=== PATIENT | male | born 1955 | race Caucasian/White ===

== ENCOUNTER → 2021-09-30 | Outpatient (CLI) | payer OTHER ==
--- NOTE | 2021-10-01 08:38 | XR ---
EXAM TYPE: LUMBAR SPINE X RAY SERIES COMPARISON: NONE HISTORY: Pain TECHNIQUE: 4 views are submitted. FINDINGS: Alignment is anatomic. The pedicles are intact. The transverse processes are intact. There is mult ilevel severe facet arthropathy and degenerative disc disease. Grade 1 anterolisthesis L4 on L5. Mult ilevel foraminal encroachment. Atherosclerotic change of the aorta. IMPRESSION: 1. Multilevel moderate to severe degenerative disc disease with facet arthropathy and grade 1 anterol isthesis L4 on L5. 2. Multilevel foraminal encroachment. Recommend follow-up MRI
--- NOTE | 2021-10-01 08:43 | XR ---
EXAMINATION TYPE: XR Hip Complete RT DATE OF EXAM: 09/30/2021 COMPARISON: NONE HISTORY: Pain TECHNIQUE: 2 views submitted FINDINGS: There is no evidence of erosive change or acute fracture. Calcifications along the greater trochanter likely vascular. Mild concentric narrowing of the hip jeff nt with hypertrophic change of the acetabulum. IMPRESSION: 1. No evidence of acute fracture or dislocation. 2. Arthropathy correlate for femoral acetabular impingement.
== END | disposition home or self-care (01) ==
LOC: RADXRMAIN 16:17
PROVIDERS: ATTEND Internal Medicine
DX: M51.36 Other intervertebral disc degeneration, lumbar region (principal); M43.16 Spondylolisthesis, lumbar region; M47.816 Spondylosis without myelopathy or radiculopathy, lumbar region; M12.851 Other specific arthropathies, not elsewhere classified, right hip
CPT/HCPCS: 72110; 73502

== ENCOUNTER → 2022-03-11 | Outpatient (CLI) | payer OTHER ==
--- NOTE | 2022-03-11 21:57 | MR ---
EXAMINATION TYPE: MR cspine/tspine wo con DATE OF EXAM: 03/11/2022 COMPARISON: NONE HISTORY: Neck pain and back pain for 3 months. TECHNIQUE: Multiplanar, multisequence imaging of cervical and thoracic spine are performed without co ntrast FINDINGS: Cervical spine: Sagittal images of the cervical spine show the craniocervical junction to appear within normal limits . The cervical and upper thoracic spinal cord is normal in caliber and signal. Diminished AP diamete r to the cervical spinal canal is noted. There is grade 1 retrolisthesis C4 on C5 and C5-C6. Mild dis c space narrowing C5-C6 otherwise the vertebral body and intravertebral disk heights are normal. The bone marrow signal intensity is within normal limits. Axial images show C2-C3 level to appear within normal limits. Axial images at C3-C4 level shows tiny central disc protrusion moderately effacing the anterior theca l sac with left foraminal spur disc complex causing moderate to severe left-sided neural foraminal na rrowing. Axial images at C4-C5 level show spondylolisthesis with broad-based left paracentral disc protrusion effacing the anterior thecal sac up to ventral surface of spinal cord which is slightly indented and causing moderate right and advanced left-sided neural foraminal narrowing. Axial images at C5-C6 level shows spondylosis with broad-based posterior disc protrusion effacing the anterior thecal sac and causing advanced right and moderate to advanced left-sided neural foraminal narrowing. Axial images at C6-C7 level shows central disc protrusion effacing the anterior thecal sac and causin g mild bilateral neural foraminal narrowing. Axial images at C7-T1 level show right paracentral disc protrusion mildly effacing the anterior theca l sac and causing mild bilateral neural foraminal narrowing. IMPRESSION: Spondylolisthesis and multilevel degenerative change greatest in mid cervical levels as d etailed above. Thoracic spine: Spinal cord shows normal course, caliber, and signal as it courses the thoracic spine. Vertebral bod y heights and alignment are satisfactory. Small posterior disc herniations are seen effacing the ante rior thecal sac at T2-T3 sagittal image 9 along with T4-T5 level sagittal image 8 and T6-T7 through t he T9-T10 levels on sagittal images. Bone marrow signal intensity is preserved. Axial images show additional bilateral paracentral disc protrusions effacing the anterolateral thecal sac at T1-T2 level on image 25. There is some effacement of the posterior lateral thecal sac and bi lateral T10-T11 and T11-T12 levels due to facet arthropathy and ligamentum flavum hypertrophy. The vi sualized upper abdomen and thorax show no suspicious abnormality. IMPRESSION: Multilevel degenerative changes in the thoracic spine as detailed above.
== END | disposition home or self-care (01) ==
LOC: RADMRIMAIN 20:50
PROVIDERS: ATTEND Orthopaedic Surgery
DX: M54.2 Cervicalgia (principal); M54.6 Pain in thoracic spine
CPT/HCPCS: 72141; 72146

== ENCOUNTER → 2022-05-08 | Outpatient (CLI) | payer OTHER | END | disposition home or self-care (01) | LOC: LABWHC1 10:15 | PROVIDERS: ATTEND Orthopaedic Surgery | DX: Z01.812 Encounter for preprocedural laboratory examination (principal); M47.816 Spondylosis without myelopathy or radiculopathy, lumbar region; M48.061 Spinal stenosis, lumbar region without neurogenic claudication; Z22.322 Carrier or suspected carrier of Methicillin resistant Staphylococcus aureus | CPT/HCPCS: 87070 ==

== ENCOUNTER 2022-05-15 05:33 | Inpatient (IN) | payer OTHER ==
[2022-05-13 09:25] VITALS: BMI 36.9
[~2022-05-15 05:33] MED LIST: ACETAMINOPHEN TAB 500 MG TAB PO PRN; GABAPENTIN 300 MG CAP PO PRN; MIDAZOLAM 2 MG/2 ML VIAL IV PRN; ONDANSETRON 4 MG/2 ML VIAL IVP PRN; TRANEXAMIC ACID IN NACL,ISO-OS 1,000 MG in SALINE 1 100ML.BAG IVPB PRN; ceFAZolin 3 GM in SODIUM CHLORIDE 0.9% 100 ML IVPB PRN
[2022-05-15 06:22] LABS: Glucose,Whole Blood 193 mg/dL (70-110)
[2022-05-15] MEDS: LACTATED RINGERS 1,000 ML IV SCH (06:24)
--- NOTE | 2022-05-15 06:46 | P.HPOR ---
History of Present Illness H&P Date: 05/08/22 .D:Date: 05/08/22 : 09:42am .T:Title: [facility] History and Physical Date of :[birth year] Age: 66 year Height: 5'11" Weight: 265 lbs BMI: 36.96 kg/m2 Occupation: Teacher VAS: 5 CHIEF COMPLAINT: Low back pain DOI:symptoms ongoing for several years but worsened over the 5 months after a FFS DOS: None Duration of current treatment regiment: 5 months HISTORY : Xrays brought xrays from outside facility which were reviewed No new xrays taken in office Trauma or injury yes No Work-Related No Pain description aching, burning, sharp. Location diffuse Patient notes that their pain radiates to bilateral lower extremities(left worse than right) Activity Modification yes Hand Dominance right TREATMENTS COMPLETED: 6 weeks of PT completed? Month and Year of last PT date? None recent No Physician recommended home exercise completed? Duration of HEP course: Current, greater than 5 months yes Patient has trialed the physician directed home exercise program (without) relief of their symptoms. Medications yes List: Tylenol PRN, Motrin 800mg PRN both without relief. Previously trialed a Medrol Dosepak around 09/2021 and in 02/2022 without relief. Gabapentin Alternative interventions Chiropractic: yes , without relief. Massage therapy: No R.I.C.E: yes , heat and ice without relief. Brace: No Injections No RFA: No SUBJECTIVE: Mr. Leach returns to the office for a pre-operative recheck of their planned l umbar (L2-S1) Decompression and Fusion. Patient reports no improvements to his symptoms since the time of the last appointment. The patient continues to complain of low back pain extending into the bilateral lower extremities (L>R) with numbness/tingling and weakness. Overall the patient notes continued debility and significantly impeding his ability to complete most of his daily tasks. Overall the patient has seen a progressive increase in symptoms since their onset. Mr. Leach symptoms are exacerbated with standing, ambulation, flexion/extension, and high impact movements like walking up and down stairs, due to this they notes that it is increasingly difficult for Mr. Leach to complete many of their daily tasks. Patient is having severe sleep disturbances as well due to their ongoing pain and associated symptoms. Regarding treatments, the patient has previously trialed all abovementioned treatment modalities without relief of his symptoms. Patient denies trialing any other modalities at this time. For their symptoms, the patient has been taking Tylenol, Motrin, and Gabapentin all without relief of his symptoms. Otherwise the patient denies any f/c/sob/cp, no bladder or bowel retention/incontinence, no perineal numbness/tingling, and ambulates independently. HPI: Mr. Leach last returned to the office on 03/23/22 for an recheck of their low back and cervical pain. Since the time of the last appointment the patient repo rts no improvements to his symptoms. Patient notes that his symptoms have continued to be quite severe. He reports cervicaland lumbar pain ongoing for 5 months after a FFS. He denies any new injury or trauma. In addition to their lumbar pain, they do report that it radiates into the bilateral lower extremities, associatedwith numbness and tingling through the posterior portion of the legs along with significant weakness effecting his gait. Overall the patient has seen a progressive increase in symptoms since their onset and has had significantly reduced ability to complete his daily tasks. Patient reports an increase in bilateral hamstring pain when ambulating without any ambulatory aid so he has been using a walker. Mr. Leach symptoms are exacerbated with any standing, ambulation, flexion/extension/twisting, and high impact movements like walking up and down stairs, due to this they notes that it is increasingly difficult for Mr. Leach to complete many of their daily tasks. Patient is having severe sleep disturbances as well due to their ongoing pain and associated symptoms. Regarding treatments, the patient has previously trialed all aobvementioned treatment modalities with waning relief, noting he no longer gets any significant relief from any conservative modalities. Patient denies trialing any other modalities at this time. Otherwise the patient denies any f/c/sob/cp, no incision concerns, no bladder or bowel retention/incontinence, no perineal numbness/tingling, and ambulates independently. Mr. Leach presents to the office for an evaluation of their low back pain. Patient reports a aching, burning, sharp lumbar pain ongoing for several years but hs worsened sharply over the last 5 months after a FFS. Patient denies any prior injuries, trauma's, or hx of low back surgeries. In addition to their lumbar pain, they do report that it radiates into the bilateral lower extremities (left worse than right), associated withnumbness and tingling through the legs diffusely. Overall the patient has seen a progressive increase in symptoms since their onset. Mr. Leach symptoms are exacerbated with prolonged standing and ambulation, due to this they notes that it is increasingly difficult for Mr. Leach to complete many of their daily tasks. Patient is having severe sleep disturbances as well due to their ongoing pain and associated symptoms. Regarding treatments, the patient has previously trialed all abovementined treatment modalities without relief of his symptoms. Patient denies trialing any other modalities at this time. For their symptoms, the linda ent has been taking Tylenol and Motrin 800mg without any relief of his symptoms. Otherwise the patient denies any f/c/sob/cp, no incision concerns, no bladder or bowel retention/incontinence, no perineal numbness/tingling, and ambulates independently. The patients' past social, medical, family, surgical history, as well as review of systems, have been reviewed. Please refer to the Neurosurgery History and Physical form that has been scanned in to our electronic medical record system. 16 points review of systems completed and as stated in HPI, all other systems reviewed are negative. Social History: Reviewed, see appropriate section of the chart for details. P3 Social History: Smoking: former smoker P3 Alcohol: none P3 Family History: Reviewed, see appropriate section of the chart for details. P2 Past Medical History: Reviewed, see appropriate section of the chart for details. [id number] Medications: Rx: gabapentin 300 mg capsule Ref: 0 Rx: glipiZIDE 5 mg tablet Ref: 0 Rx: IBU 800 mg tablet Ref: 0 Rx: Jardiance 25 mg tablet Ref: 0 Rx: levothyroxine 150 mcg capsule Ref: 0 Rx: Medrol (Yosef) 4 mg tablets in a dose pack Ref: 0 Rx: metFORMIN 500 mg tablet Ref: 0 Rx: metoprolol tartrate 25 mg tablet Ref: 0 Rx: rosuvastatin 10 mg tablet Ref: 0 Rx: Tylenol Extra Strength 500 mg tablet Ref: 0 Rx: valsartan 320 mg tablet Ref: 0 PHYSICAL EXAMINATION: General: Awake, alert, appropriate for age, in no acute distress. HEENT: No unusual neck masses around region of lateral neck triangle, thyroid, supraclavicular groove Heart: Regular rate and rhythm, normal S1, S2 and no murmur/gallop. Lungs: Clear to auscultation bilaterally with no use of accessory muscles. Extremities: Skin warm and dry without acute lesions, coloration, temperature, skin intact, no tenderness or erythema Integument: Hairy patches: ABSENT Dorsal skin dimples: ABSENT Cafe au lait spots: ABSENT Surgical incisions: NONE Palpation: Please see Pain drawing on Intake sheet for further detail. Midline spinal tenderness: No E6 Cervical Tenderness: No E6 Paralumbar tenderness: No E6 Parathoracic tenderness: No E6 Buttocks tenderness: No E6 Sacroiliac Tenderness: No POSTURAL and MUSCULO-SKELETAL EVALUATION: Coronal Balance: NEUTRAL Recumbent testing: Patient is able to lay flat on back Sagittal Balance: NEUTRAL Shoulder Profile: LEVEL Pelvic Girdle: LEVEL Neck ROM: RESTRICTED Lumbar ROM: severe RESTRICTED Shoulder ROM: Symmetrical Hip ROM: Symmetrical Knee ROM: Symmetrical Hands: Normal appearance, symmetrical Feet: Normal appearance, Symmetrical VASCULAR STATUS : LEFT RIGHT Wrist Pulses INTACT INTACT Pedal Pulses (Dors. pedis & post.tibialis) INTACT INTACT Color NORMAL NORMAL Edema Absent Absent NEUROLOGIC EXAMINATION: Mental Status:Awake and alert, fully oriented, with normal attention, concentration and memory, and fluent, appropriate speech. Cranial Nerves: I: Olfactory not tested. II: Visual acuity normal, no visual field deficit noted with confrontation. III,IV: Normal pupillary reflexes & intact extraocular movements without nystagmus. V,: Intact symmetrical facial sensation. VII: Intact symmetrical facial motor movement VIII: Hearing intact. IX,X: Intact gag, swallow, & normal voice. XI: Sternocleidomastoid, trapezius function intact. XII: Tongue midline with normal movements. L'hermitte's Sign: Negative / absent Spurling'Sign: Absent bilaterally. Cubital percussion test: Absent bilaterally. Carvalho-Tinel sign - Carpal region: Absent bilaterally. Straight Leg Raising: Absent bilaterally. Crossed straight leg raise: positive O8 MOTOR EXAM (0-5/5, N/T) UPPER EXTREMITY Shoulder Abduction Biceps Triceps Wrist Extension Hand [facility] Right 5/5 5/5 5/5 5/5 4/5 4/5 Left 5/5 5/5 5/5 5/5 4/5 4/5 LOWER EXTREMITY Hip Flexion Knee Extension Knee Flexion DF PF EHL FHL Right 4/5 4/5 4/5 4/5 3/5 4/5 4/5 Left 4/5 4/5 4/5 3/5 4/5 4/5 4/5 REFLEXES(0-4/2, NT)Upper ExtremityLower Extremity Right 2 2 Left 2 2 Pathological Reflexes RIGHT LEFT Carvalho's Absent Absent Clonus Absent Absent Babinski Absent Absent # Indicates mechanical impairment Muscle appearance: Symmetrical, without signs of atrophy or dystrophy. Sensory system (0-4, N/T) Test type RU TONY RL LL Joint-Position 2 2 2 2 Vibration 2 2 2 2 Pain & LT sense 2 2 2 2 Dermatomal Deficit: None None L5-S1 S1 Gait and Functional Evaluation: Ambulatory aids: Walker which is more recent development Romberg's test: Intact bilaterally Toe heel walk / heel-toe walk intact while maintaining satisfactory balance? No Squatting/straightening w/o assistance to a min of 60 degree knee flexion? No Single leg stance: intact Trendelenburg sign negative bilaterally Hand and finger dexterity intact bilaterally? yes Disdiadochokinesis examination negative bilaterally? yes He has an unsteady somewhat ataxic gait that is somewhat steppage. This could be from how severe his stenosis is. RADIOGRAPHIC STUDIES: XRay Lumbar Multiview (AP, Lateral, Flexion, Extension) with AP pelvis; 5 views taken on 02/16/22 of Lumbar Spine and Pelvis: images are reviewed with the patient demonstrated severe spondylotic changes from L3 through S1. There is near complete disc collapse at L4 5 and L5-S1. There is disc dislocation and height loss at L3-L4 there is severe facet arthrosis throughout these levels. There is flattening of the normal lumbar lordosis to only 18 with the pelvic incidence around 38-40. There is no acute fracture or dislocation noted. There is no lesions noted. AP pelvis demonstrates congruent level pelvis no fracture MRI aduuucwv04/27/2022 at [facility] of Lumbar Spine: images are reviewed with the patient. This demonstrates a grade 1 spondylolisthesis L4 on L5. There is severe disc desiccation L3 4 L4 5 and L5- S1 with height loss flattening of the normal lordosis. There is severe facet arthrosis with overgrowth as well as ligamental overgrowth contributing to severe stenosis L34 L4 5.there are varying degrees of foraminal stenosis at these levels. There are boggy facets L3 4 L4 5 and L5-S1. There is no acute fracture or dislocation. There is turbulent CSF flow causing nerve root limit motion. No lesions no acute fractures. MRI scan without contrast from 03/11/22 at [facility] of Cervical Spine and Thoracic Spine: Images reviewed with the patient. Motion artifact obscures some view in upper C spine but there is no stenosis or spondylosis C0-1, C1-2 or C2-3. There is beginning spondylotic changes C3-4 with disc dessication, mild. There is severe spondylotic changes noted C4-5, C5-6 and C6-7 with disc collapse, HNP related to this causing severe central and b/l foraminal stenosis related. There are beginning cord signal changes C5-6 noted due to the compression. There is fl attening of the normal cervical lordosis secondary to these findings. No fracture. No lesions noted. Thoracic spine is mild spondylosis w/o stenosis, fracture or lesions. IMPRESSION : It was my pleasure to have seen and examined Jose Manuel. I reviewed the patient's clinical syndrome, physical findings, and imaging studies during the appointment today. It is my impression that the patient has a diagnosis of. 1. L2-S1 spondylosis-severe with severe stenosis 2. C4-7 Spondylosis with HNP and stenosis moderate to severe 3. neurogenic claudication 4. mechanical low back pain 5. beginning Myelopathy I outlined the natural course history without intervention and various interventional options. PLAN: Based on my findings I suggest the following course of action: - Patient given a refill of his Gabapentin 300mg to help with his radicular symptoms until his surgery as he is almost out. - Patient given a temporary handicap parking permit to help with is functionality. - I did discuss with the patient given his severe symptoms, their progression and his deterioration neurologically as well as his imaging findings that he would need surgery at some point as he is becoming more and more debilitated due to pain and weakness sin his LE. He would need at least an L2-S1 decompression and fusion due to the severity of the stenosis. I discussed treatment options with the patient, including operative and non-operative options, and they have elected to proceed with the following surgical procedure: lumbar (L2-Pelvis) Decompression and Fusion The indications, risks, benefits, and alternatives to surgery were discussed with the patient and family at length. Specifically (but not limited to) the risks of infection, stiffness, recurrence of symptoms, need for revision surgery, local numbness, neurovascular injury, and blood clots were discussed. The patient's questions were answered.The decision to proceed was made. Consent will be obtained for the procedure. Spine Surgery Risk Review Mr. Leach is presenting for evaluation of his low back pain. It was my pleasure to have seen and examined Mr. Leach. In our visit today we have had a chance to go over subjective complaints, physical examination findings and treatments including the natural course history without intervention and various interventional options. The patients im aging demonstrates: XRay Lumbar Multiview (AP, Lateral, Flexion, Extension) with AP pelvis; 5 views taken on 02/16/22 of Lumbar Spine and Pelvis: images are reviewed with the patient demonstrated severe spondylotic changes from L3 through S1. There is near complete disc collapse at L4 5 and L5-S1. There is disc dislocation and height loss at L3-L4 there is severe facet arthrosis throughout these levels. There is flattening of the normal lumbar lordosis to only 18 with the pelvic incidence around 38-40. There is no acute fracture or dislocation noted. There is no lesions noted. AP pelvis demonstrates congruent level pelvis no fracture MRI scan from01/10/2022 at [facility] of Lumbar Spine: images are reviewed with the patient. This demonstrates a grade 1 spondylolisthesis L4 on L5. There is severe disc desiccation L3 4 L4 5 and L5- S1 with height loss flattening of the normal lordosis. There is severe facet arthrosis with overgrowth as well as ligamental overgrowth contributing to severe stenosis L34 L4 5.there are varying degrees of foraminal stenosis at these levels. There are boggy facets L3 4 L4 5 and L5-S1. There is no acute fracture or dislocation. There is turbulent CSF flow causing nerve root limit motion. No lesions no acute fractures. On physical exam, Mr. Leach demonstrates severely restricted lumbar ROM with significant bilateral lower extremity radiculopathy and weakness (L>R). Patient demonstrates left foot drop as well and his gait is severely impacted by his i nability to place any significant weight on the legs without instability. He has an unsteady somewhat ataxic gait that is somewhat steppage. Patient also has right lower extremity L5-S1 dermatomal deficits and S1 left lower extremity dermatomal deficit. Patient ambulating with a walker. I have explained to the patient that as their condition progresses it will cause further neurological deficits and eventual paralysis. Based on the patients imaging, physical exam, and the rapid progression and disabling nature of their symptoms, at this time I recommend surgery in the form or a: lumbar (L2-S1) Decompression and Fusion . I discussed the risk and benefits of this procedure at length with Mr. Leach. The patient and his agreed to considered pursuing the procedure abovementioned. Prior to surgery, she should follow up with her PCP (Cardio, ID, IM etc) for clearance. Questions were invited and answered, and the patient wishes to proceed as outlined below. Currently, I am recommendin.lumbar (L2-Pelvis) Decompression and Fusion 2.Follow up with PCP for surgical clearance 3.Review of surgical risks and benefits as well as an educational packet on the proposed surgical procedure. Risks: All surgical procedures come with inherent risks, including those related to positioning, anesthesia, intraoperative findings, and postoperative complications. It is important to understand that surgery does not come with any guarantee of a successful outcome as complications and adverse events are always possible. The patient was given a handout in office today discussing the surgical procedure and risks associated with the intervention, both of which were discussed with the patient. These risks include but are not limited to the following: * Experiencing same, different or even worse symptoms in back, neck, arms, or legs compared to before surgery. Requiring further surgery or other forms of treatment presently or at some time in the future at same or other levels of the intended spine surgery. On an extreme but fortunately relatively rare basis severe complication such as blindness, stroke, heart attack, temporary and/or permanent nerve injury, paralysis, coma, or may occur, sometimes without known explanation. Surgical complications may include but are not limited to risk of infection, fluid accumulation in the surgical dissection site, including a seroma or hematoma, that requires additional surgery, wound drainage, bleeding, new numbness or weakness, vision changes/loss, spinal fluid leakage, non-healing and/or infected incision, headaches, difficulty or inability to swallow, hoarseness, hemopneumothorax, pneumothorax, impotence, retrograde ejaculation, vaginal dryness; injury to nerves, spinal cord, blood vessels, lymphatics or other vital organs (i.e., bowel injury, injury to the great vessels); heterotopic bone formation; complications related to the hardware such as screws, rods, cages including misplaced hardware, device failure, instrumentation at the wrong spine level, hardware fracture/breakage, or hardware loosening; vertebral failure of the spinal column above or below the newly placed hardware; retained surgical instrumentations or devices and the need for further surgery. * Medical risks of the planned spine surgery include but are not limited to generalized Infections to the whole body or local areas outside of the surgical site (sepsis), heart attack, bleeding, anaphylaxis, meningitis, seizure, epilepsy, hearing loss, burn merrill, laceration of the head or other areas of the body, bruising, hypersensitivity of the skin, bladder over distension; allergic reaction; shoulder injury related to positioning; fat, blood and air clots to other areas of the body like heart, lungs, brain; failure of internal organs such as lungs, kidneys, liver and excessive bleeding. If blood transfusions are necessary, note that transfusions may cause intolerance reactions such as anaphylaxis or other complex reactions. Despite best efforts, the results of spine surgery might not heal in terms of bone, soft tissues such as skin, fascia, ligaments, and joints. Additionally, in order to achieve best possible results, spine surgery may be carried out beyond the initially planned levels and involve decompression, fusion including insertion of hardware at levels other than the original intended area of surgical interest change some portions of the procedure in order to ensure the best possible outcomes. With spine surgery and spinal fusion, there are different off label uses of instrumentation (devices, implants and hardware) as well as biological substances (bone morphogenic proteins, demineralized bone matrix) as well as using extra bone from allograft sources (i.e. cadaver bone) or autograft (iliac crest bone, ribs, or the spine itself). The patient has been given information about these practices and their inherent risks and benefits. [facility] is an educational center that serves as a training facility for neurosurgical and orthopedic SENIOR SOFTWARE DEVELOPER and Nursing students. Physician assistants are medically trained surgical providers who function in the outpatient, inpatient, and operating room setting under the direct supervision of the attending surgeon. [facility] has multiple operating rooms with single and overlapping rooms running daily. They currently function under the required guidelines as produced by the [facility] Finance Committee with regards to the overlapping rooms and will continue to comply with changes to this policy as they occur. The requirements include and are complied with as follows: (1) the critical portions of the overlapping rooms will not occur at the same time, (2) the attending physician will be physically present during the critical portions of the procedure and immediately available during the entire case, and (3) a back-up attending is designated should the primary attending not be immediately available. The patient has had a chance to review all the listed information, has been given print outs detailing this information, and has had all his/her questions answered to their satisfaction. It was my pleasure to have seen and examined Mr. Leach. In our visit today we have had a chance to go over my understanding of our patient's current condition, the natural course history without intervention and various interventional options. Questions were invited and answered, and the patient wishes to proceed as outlined above. I have seen and examined the patient for 25 minutes and we have spent more than 50% of the time in repeat and detailed counseling about the patient's condition, its natural course history with out and as much as can be predicted with surgery and re-review of various surgical treatment options. In conclusion, Mr. Leach and his spouse requested we proceed with the above suggested surgery and are willing to accept risks and limitations of the suggested surgery as nature of the disease process and our best attempts at treatment for the condition. Thank you again for allowing us to be part of your patient's care. Please don't hesitate to contact me if you have any further questions. Signed and authenticated by: Follow- up: 2 weeks post-op Patient Education: (Informational booklet, instructions, etc) given at today's appointment: Yes .ED:Patient Education: Y Plan at next visit: review MRI and progress Medications Reviewed: YES In our visit today Mr. Leach and I have had a chance to go over my understanding of the patient's current condition, the natural course history without intervention and various interventional options. Questions were invited and answered, and the patient wishes to proceed as outlined above. I will be sure to keep you updated afterMr. Leach returns here for further follow-up. Thank you again for your referral. Please do not hesitate to contact me if you have any further questions. Signed and authenticated by: Geo Mason [facility] [place] [address] [address] This message is confidential, intended only for the named recipient(s) and may contain information that is privileged or exempt from disclosure under applicable law. If you are not the intended recipient(s), you are notified that the dissemination, distribution or copying of this information is strictly prohibited. If you received this message in error, please notify the sender then delete this message. Patient verbalizes understanding of the information discussed. The above note was initiated by Geo Hallman, physician recording maintenance assistant for Dr. Geo Rodriguez. This note has been reviewed by Dr. Rodriguez, who has made his personal changes and impressions for this document. # SIGNED BY Geo Rodriguez (GOO)05/13/2022 12:42PM Past Medical History Past Medical History: Asthma, Diabetes Mellitus, Hyperlipidemia, Hypertension, Thyroid Disorder Additional Past Medical History / Comment(s): No treatment for Asthma needed in many many years. Hx kidney stones. History of Any Multi-Drug Resistant Organisms: None Reported Past Surgical History: Hernia Repair Additional Past Surgical History / Comment(s): Surgery for perforated ulcer at 15 yrs of age. Past Anesthesia/Blood Transfusion Reactions: No Reported Reaction Additional Past Anesthesia/Blood Transfusion Reaction / Comment(s): "Severe Needle Phobia." Past Psychological History: No Psychological Hx Reported Smoking Status: Former smoker Past Alcohol Use History: Rare Additional Past Alcohol Use History / Comment(s): Smoked briefly in high school. Past Drug Use History: None Reported - Past Family History Mother Family Medical History: No Reported History Additional Family Medical History / Comment(s): Strong family hx of [place]'s Disease. Medications and Allergies Home Medications Medication Instructions Recorded Confirmed Type Empagliflozin [Jardiance] 25 mg PO QAM 05/13/22 05/15/22 History Ezetimibe [Zetia] 10 mg PO HS 05/13/22 05/13/22 History Gabapentin 600 mg PO HS 05/13/22 05/13/22 History Gabapentin [Neurontin] 300 mg PO BID 05/13/22 05/15/22 History Levothyroxine Sodium 150 mcg PO QAM 05/13/22 05/13/22 History Metoprolol Tartrate 25 mg PO BID 05/13/22 05/13/22 History Rosuvastatin Calcium 10 mg PO HS 05/13/22 05/13/22 History Valsartan 320 mg PO QAM 05/13/22 05/13/22 History glipiZIDE 5 mg PO BID 05/13/22 05/15/22 History metFORMIN HCL 1,000 mg PO BID 05/13/22 05/13/22 History Allergies Allergy/AdvReac Type Severity Reaction Status Date / Time No Known Allergies Allergy Verified 05/15/22 05:58 Physical Examination Osteopathic Statement: *. No significant issues noted on an osteopathic structural exam other than those noted in the History and Physical/Consult. Results - Labs Labs: Abnormal Lab Results - Last 24 Hours (Table) 05/15/22 Range/Units 06:19 POC Glucose (mg/dL) 193 H (70-110) mg/dL
[2022-05-15] MEDS ORDERED: MIDAZOLAM 2 MG/2 ML VIAL IVP ONE (06:53)
[2022-05-15] MEDS ORDERED: fentaNYL (PF) 50 MCG/1 ML VIAL IVP ONE (06:53)
[2022-05-15] MEDS ORDERED: HYDROmorphone 0.5 MG/0.5 ML SYRINGE IVP PRN (07:00)
[2022-05-15] MEDS ORDERED: HEPARIN SODIUM 1,000 UN/ML (10ML VL) MISCELLANE ONE (09:00)
[2022-05-15] MEDS ORDERED: GENTAMICIN 80 MG in SODIUM CHLORIDE 0.9% IRRIGATIO 3,000 ML IRRIGATION ONE (09:05)
[2022-05-15] MEDS ORDERED: ceFAZolin 3,000 MG in SODIUM CHLORIDE 0.9% IRRIGATIO 3,000 ML IRRIGATION ONE (09:05)
[2022-05-15] MEDS ORDERED: LACTATED RINGERS 1,000 ML IV ONE ×2 (09:13→13:48)
[2022-05-15] MEDS ORDERED: VANCOMYCIN 1,000 MG VIAL MISCELLANE ONE (14:28)
[2022-05-15] MEDS ORDERED: GELATIN SPONGE,ABSORB (LARGE) 1 EACH SPONGE MISCELLANE ONE (14:28)
[2022-05-15] MEDS ORDERED: THROMBIN (BOVINE) 5,000 UNIT VIAL MISCELLANE ONE (14:29)
[2022-05-15 14:59] LABS: Allen Test Performed? Yes
[2022-05-15 15:01] LABS: HCT 33.1 % (39.0-53.0); HGB 11.1 gm/dL (13.0-17.5); MCH 31.1 pg (25.0-35.0); MCHC 33.7 g/dL (31.0-37.0); MCV 92.4 fL (80.0-100.0); Platelet Count 173 k/uL (150-450); RBC 3.58 m/uL (4.30-5.90); RDW 12.7 % (11.5-15.5); WBC 14.7 k/uL (3.8-10.6)
[2022-05-15 15:02] LABS: ABG Base Excess -10.8 mmol/L; ABG HCO3 15 mmol/L (21-25); ABG Oxygen Saturation 99.3 % (94-97); ABG PCO2 34 mmHg (35-45); ABG PH 7.27 (7.35-7.45); ABG PO2 187 mmHg (83-108)
[2022-05-15 15:37] LABS: Glucose,Whole Blood 292 mg/dL (70-110)
[2022-05-15] MEDS ORDERED: CYCLOBENZAPRINE 5 MG TAB PO PRN (15:41)
[2022-05-15] MEDS ORDERED: ONDANSETRON 4 MG/2 ML VIAL IVP PRN (15:41)
[2022-05-15] MEDS ORDERED: HYDROmorphone 1 MG/ML 1 ML SYRINGE IVP PRN (15:41)
[2022-05-15] MEDS ORDERED: INSULIN ASPART (NovoLOG) 100 UNIT/ML VIAL SQ ONE (16:01)
[2022-05-15] MEDS ORDERED: SODIUM CHLORIDE 0.9% 1,000 ML IV ONE (16:17)
--- NOTE | 2022-05-15 16:26 | P.CNPUL ---
History of Present Illness Consult date: 05/15/22 Requesting physician: Geo Rodriguez Reason for consult: other Chief complaint: Lumbar decompression. History of present illness: Pulmonary consult dated 05/15/2022. 66-year-old male who underwent a lumbar decompression today, with Dr. Rodriguez. The patient was seen in the postoperative recovery area, having been extubated. Currently, he's on 5 L of oxygen. Is getting lactated Ringer's at 100 mL an hour. A blood gas reveals some metabolic acidosis, so he received 1 ampule of sodium bicarbonate. The patient will be admitted to the intensive care unit overnight, for further touring and management. He is resting comfortably in the postoperative area. He has no complaints at this time. Current laboratory data includes a white count of 14.7, hemoglobin 11.1, hematocrit 33.1, and a platelet count of 173,000. Most recent glucose is 292. Home medications include glipizide, Jardiance, Neurontin, valsartan, Crestor, levothyroxine, metformin, metoprolol, gabapentin, and Zetia. Medical history based on these medications include diabetes, hypertension, hyperlipidemia, and hypothyroidism. Review of Systems REVIEW OF SYSTEMS: CONSTITUTIONAL: Chronic low back pain. NEUROLOGIC: [ Negative.] HEENT: [ Negative.] CARDIAC: [Negative.] PULMONARY: [Negative.] GI: [Negative.] : [Negative.] RHEUMATOLOGIC: [ Negative.] IMMUNOLOGIC: [ Negative.] ENDOCRINE: [Negative. ] DERMATOLOGIC: [Negative.] Past Medical History Past Medical History: Asthma, Diabetes Mellitus, Hyperlipidemia, Hypertension, Thyroid Disorder Additional Past Medical History / Comment(s): No treatment for Asthma needed in many many years. Hx kidney stones. History of Any Multi-Drug Resistant Organisms: None Reported Past Surgical History: Hernia Repair Additional Past Surgical History / Comment(s): Surgery for perforated ulcer at 15 yrs of age. Past Anesthesia/Blood Transfusion Reactions: No Reported Reaction Additional Past Anesthesia/Blood Transfusion Reaction / Comment(s): "Severe Needle Phobia." Past Psychological History: No Psychological Hx Reported Smoking Status: Former smoker Past Alcohol Use History: Rare Additional Past Alcohol Use History / Comment(s): Smoked briefly in high school. Past Drug Use History: None Reported - Past Family History Mother Family Medical History: No Reported History Additional Family Medical History / Comment(s): Strong family hx of [place]'s Disease. Medications and Allergies Home Medications Medication Instructions Recorded Confirmed Type Empagliflozin [Jardiance] 25 mg PO QAM 05/13/22 05/15/22 History Ezetimibe [Zetia] 10 mg PO HS 05/13/22 05/13/22 History Gabapentin 600 mg PO HS 05/13/22 05/13/22 History Gabapentin [Neurontin] 300 mg PO BID 05/13/22 05/15/22 History Levothyroxine Sodium 150 mcg PO QAM 05/13/22 05/13/22 History Metoprolol Tartrate 25 mg PO BID 05/13/22 05/13/22 History Rosuvastatin Calcium 10 mg PO HS 05/13/22 05/13/22 History Valsartan 320 mg PO QAM 05/13/22 05/13/22 History glipiZIDE 5 mg PO BID 05/13/22 05/15/22 History metFORMIN HCL 1,000 mg PO BID 05/13/22 05/13/22 History Allergies Allergy/AdvReac Type Severity Reaction Status Date / Time No Known Allergies Allergy Verified 05/15/22 05:58 Physical Exam Osteopathic Statement: *. No significant issues noted on an osteopathic structural exam other than those noted in the History and Physical/Consult. Vitals: Vital Signs Temp Pulse Pulse Resp BP BP Pulse Ox 05/15/22 16:00 111 H 16 138/73 92 L 05/15/22 15:45 110 H 16 145/77 95 05/15/22 15:30 97 F L 108 H 14 132/73 95 05/15/22 07:23 92 14 96 05/15/22 06:05 98.2 F 94 18 161/75 94 L Intake and Output 05/15/22 05/15/22 05/15/22 06:59 14:59 22:59 Intake Total 300 3202 100 Output Total 1700 Balance 300 1502 100 Intake: IV 300 3202 100 Output: Urine 800 Estimated Blood Loss 900 Other: Weight 124.6 kg No acute distress, oriented 3. Currently on a simple mask. Saturations are excellent. HEENT examination is grossly unremarkable. Neck supple. Full range of motion. No adenopathy thyromegaly or neck vein distention. Cardiovascular examination reveals regular rhythm rate. S1-S2 normal. No S3 or S4. No discernible murmur noted. Heart rate 100 bpm. Lungs reveal clear breath sounds. Breath sounds are equal bilaterally. No adventitious lung sounds including wheezes rhonchi or crackles. Saturations are 95%. Abdomen soft bowel sounds are heard. No masses or tenderness. Extremities are intact. No cyanosis clubbing or edema. Skin is without rash or lesion. Neurologic examination is brief but nonfocal. Results - Laboratory Findings CBC and BMP: 05/15/22 14:48 ABG ABG pH 7.27 (7.35-7.45) L 05/15/22 14:35 ABG pCO2 34 mmHg (35-45) L 05/15/22 14:35 ABG pO2 187 mmHg (83-108) H 05/15/22 14:35 ABG O2 Saturation 99.3 % (94-97) H 05/15/22 14:35 Abnormal lab findings: Abnormal Labs 05/15/22 05/15/22 05/15/22 06:19 14:35 14:48 WBC 14.7 H RBC 3.58 L Hgb 11.1 L Hct 33.1 L ABG pH 7.27 L ABG pCO2 34 L ABG pO2 187 H ABG HCO3 15 L ABG O2 Saturation 99.3 H POC Glucose (mg/dL) 193 H 05/15/22 15:34 WBC RBC Hgb Hct ABG pH ABG pCO2 ABG pO2 ABG HCO3 ABG O2 Saturation POC Glucose (mg/dL) 292 H Assessment and Plan Assessment: Postop day #0, status post lumbar decompression, L3 to pelvis. Mild metabolic acidosis. History of hypertension. History of hyperlipidemia. History of diabetes mellitus. History of hypothyroidism. History of coronavirus infection. Plan: Plan dated 05/15/2022. The patient is seen in phase 2 recovery. The patient has been extubated. The patient's on a simple mask at 5 L. The patient did receive 1 ampule of sodium bicarbonate for his metabolic acidosis. The patient's getting lactated Ringer's at 100 mL an hour. The patient will be admitted to the intensive care unit for further monitoring and management. Labs in the morning will be done. No additional recommendations are made. Medications have been entered by the nurse working with orthopedics. Prognosis is guarded. Time with Patient: Greater than 30
[2022-05-15 16:59] LABS: Glucose,Whole Blood 272 mg/dL (70-110)
[2022-05-15] MEDS: HYDROmorphone 0.5 MG/0.5 ML SYRINGE IVP PRN (17:05)
[2022-05-15] MEDS: ceFAZolin 3 GM in SODIUM CHLORIDE 0.9% 100 ML IVPB SCH ×2 (17:14→23:06)
--- NOTE | 2022-05-15 17:28 | CT ---
EXAMINATION TYPE: CT lumbar spine wo con CT DLP: 1996.4 mGycm, Automated exposure control for dose reduction was used. DATE OF EXAM: 05/15/2022 4:49 PM COMPARISON: Fluoroscopy 05/15/2022. CLINICAL INDICATION:Male, 66 years old with history of Post op decompression and fusion, TECHNIQUE: Multiple axial images were obtained from the midportion of T11 through the sacroiliac jeff nts. Soft tissue and bone windows in coronal and sagittal planes were obtained and reviewed. 3-D ref ormats of the bones were created on a separate workstation and submitted for review. Contrast used: none. Oral contrast used: none. FINDINGS: Alignment: There are 5 lumbar type vertebral bodies within normal alignment. Bone: Postsurgical changes to the spine involving L3-S1 with fixation screws through the iliac bones bilaterally. Overall the hardware appears intact. There is surgical bed gas. Posterior elements have been removed along the surgical bed. Acute fracture of the L4 vertebral body along the left aspect wi th minimal extension to the left pedicle.. Catheter extends through the surgical bed. There is skin afsaneh also present. Discs: Limited evaluation of the levels of the spine secondary to streak artifact from fixation hardware. No obvious spinal canal stenosis or neural foraminal stenosis. Other: Atherosclerosis of the arterial vasculature. Atrophic right kidney. Bilateral renal calculi wh ich are nonobstructive. IMPRESSION: 1. Postsurgical changes with fusion extending from L3 to S1. Overall hardware is intact and in appro priate position. 2. Acute fracture of the left L4 vertebral body lateral aspect with minimal extension into the left L4 pedicle.
[2022-05-15] MEDS: GABAPENTIN 300 MG CAP PO SCH ×2 (17:29→20:20)
--- NOTE | 2022-05-15 18:13 | FL ---
Intraoperative/procedural fluoroscopic services were provided. Total fluoroscopy time is 2 minutes 40 seconds with 9 submitted images to PACS. Please see the operative/procedural note for further detail s.
[2022-05-15] MEDS: HYDROcodone/APAP 10-325MG 1 EACH TAB PO PRN (18:51)
[2022-05-15] MEDS ORDERED: DEXTROSE 50% SYRINGE 50 ML IVP PRN ×2 (19:32)
[2022-05-15] MEDS: METOPROLOL TARTRATE 25 MG TAB PO SCH (20:20)
[2022-05-15] MEDS: INSULIN ASPART (NovoLOG) 100 UNIT/ML VIAL SQ SCH (21:43)
[2022-05-15] MEDS: HYDROcodone/APAP 5-325MG 1 EACH TAB PO PRN (23:06)
[2022-05-16 04:35] LABS: Basophils # (A) 0.1 k/uL (0-0.2); Basophils % (A) 1 %; Eosinophils % (A) 0 %; HCT 31.9 % (39.0-53.0); HGB 10.4 gm/dL (13.0-17.5); Lymphocytes # (A) 1.4 k/uL (1.0-4.8); Lymphocytes % (A) 12 %; MCHC 32.7 g/dL (31.0-37.0); MCV 91.8 fL (80.0-100.0); Mean Platelet Volume 8.7; Monocytes # (A) 0.4 k/uL (0-1.0); Monocytes % (A) 4 %; Neutrophils # (A) 9.6 k/uL (1.3-7.7); Neutrophils % (A) 82 %; Platelet Count 155 k/uL (150-450); RBC 3.47 m/uL (4.30-5.90); RDW 13.1 % (11.5-15.5); WBC 11.7 k/uL (3.8-10.6)
[2022-05-16 04:49] LABS: Calcium 7.3 mg/dL (8.4-10.2); Potassium 4.2 mmol/L (3.5-5.1)
[2022-05-16] MEDS: LACTATED RINGERS 1,000 ML IV SCH (05:17)
[2022-05-16 06:39] LABS: Glucose,Whole Blood 206 mg/dL (70-110)
[2022-05-16] MEDS: HYDROcodone/APAP 10-325MG 1 EACH TAB PO PRN ×3 (06:42→18:58)
[2022-05-16] MEDS: INSULIN ASPART (NovoLOG) 100 UNIT/ML VIAL SQ SCH ×5 (06:43→18:13)
[2022-05-16] MEDS: METOPROLOL TARTRATE 25 MG TAB PO SCH ×2 (08:19→21:07)
[2022-05-16] MEDS: GABAPENTIN 300 MG CAP PO SCH ×2 (08:19→17:28)
[2022-05-16] MEDS: ceFAZolin 3 GM in SODIUM CHLORIDE 0.9% 100 ML IVPB SCH ×3 (08:20→23:00)
--- NOTE | 2022-05-16 08:20 | P.ANPRN ---
Procedure Note - Anesthesia - Invasive Line Left Arterial Line Time Out Performed: Yes Date of Procedure: 05/15/22 Location of Patient: PreOp Preparation: Sterile Prep, Sterile Dressing Arterial Line Location: Radial Ultrasound Used: No Purpose - Visualization and Identification of Vasculature: No Image Stored and Saved: Yes Narrative: left radial line placement per sterile protocol utilized.
[2022-05-16] MEDS: LEVOTHYROXINE 75 MCG TAB PO SCH (10:28)
[2022-05-16] MEDS: DAPAGLIFLOZIN PROPANEDIOL 10 MG TABLET PO SCH (10:28)
--- NOTE | 2022-05-16 10:50 | P.PN ---
Subjective Progress Note Date: 05/16/22 Principal diagnosis: Back pain. Pulmonary consult dated 05/15/2022. 66-year-old male who underwent a lumbar decompression today, with Dr. Rodriguez. The patient was seen in the postoperative recovery area, having been extubated. Currently, he's on 5 L of oxygen. Is getting lactated Ringer's at 100 mL an hour. A blood gas reveals some metabolic acidosis, so he received 1 ampule of sodium bicarbonate. The patient will be admitted to the intensive care unit overnight, for further touring and management. He is resting comfortably in the postoperative area. He has no complaints at this time. Current laboratory data includes a white count of 14.7, hemoglobin 11.1, he matocrit 33.1, and a platelet count of 173,000. Most recent glucose is 292. Home medications include glipizide, Jardiance, Neurontin, valsartan, Crestor, levothyroxine, metformin, metoprolol, gabapentin, and Zetia. Medical history based on these medications include diabetes, hypertension, hyperlipidemia, and hypothyroidism. Progress note dated 05/16/2022. The patient is seen today in room 251, ICU. He's currently on 2 L of oxygen. He is getting saline at 10 mL an hour. Today's postop day #1, status post lumbar decompression. The patient is doing well otherwise. No major complaints. He was placed in the intensive care unit, overnight, for better management and monitoring. White count 11.7, hemoglobin 10.4, hematocrit 31.9, and platelet count was normal. Sodium 135, potassium 4.2, chlorides 106, CO2 21, anion gap is 8, BUN 23, and creatinine 1.06. Calcium 7.3. Objective - Vital Signs Vital signs: Vital Signs Temp 98.3 F 05/16/22 08:00 Pulse 105 H 05/16/22 09:00 Resp 16 05/16/22 09:00 BP 88/65 05/16/22 09:00 Pulse Ox 94 L 05/16/22 09:00 FiO2 Intake & Output 05/15/22 05/16/22 05/16/22 18:59 06:59 18:59 Intake Total 3402 700 150 Output Total 1800 1455 195 Balance 1602 -755 -45 Weight 132.3 kg Intake: IV 3402 400 50 .9NS @ 100 100 400 50 Intake, IV Titration 100 100 Amount ceFAZolin 3 gm In Sodium 100 100 Chloride 0.9% 100 ml @ 200 mls/hr IVPB Q8HR [facility] Rx#:[id number] Oral 200 Output: Drainage 540 60 Left Back 10 0 Right Back 530 60 Urine 900 915 135 Estimated Blood Loss 900 Other: Voiding Method Indwelling Catheter Indwelling Catheter ABP, PAP, CO, CI - Last Documented Arterial Blood Pressure 107/54 - Exam No acute distress, oriented 3. Currently on 2 L of oxygen. HEENT examination is grossly unremarkable. Neck supple. Full range of motion. No adenopathy thyromegaly or neck vein distention. Cardiovascular examination reveals regular rhythm rate. S1-S2 normal. No S3 or S4. No discernible murmur noted. Heart rate 105 bpm. Lungs reveal clear breath sounds. Breath sounds are equal bilaterally. No adventitious lung sounds including wheezes rhonchi or crackles. Abdomen soft bowel sounds are heard. No masses or tenderness. Extremities are intact. No cyanosis clubbing or edema. Skin is without rash or lesion. Neurologic examination is brief but nonfocal. - Labs CBC & Chem 7: 05/16/22 04:00 05/16/22 04:00 Labs: Abnormal Lab Results - Last 24 Hours (Table) 05/15/22 05/15/22 05/15/22 Range/Units 14:35 14:48 14:58 WBC 14.7 H (3.8-10.6) k/uL RBC 3.58 L (4.30-5.90) m/uL Hgb 11.1 L (13.0-17.5) gm/dL Hct 33.1 L (39.0-53.0) % Neutrophils # (1.3-7.7) k/uL ABG pH 7.27 L (7.35-7.45) ABG pCO2 34 L (35-45) mmHg ABG pO2 187 H (83-108) mmHg ABG HCO3 15 L (21-25) mmol/L ABG O2 Saturation 99.3 H (94-97) % Sodium (137-145) mmol/L Carbon Dioxide (22-30) mmol/L BUN (9-20) mg/dL Glucose (74-99) mg/dL POC Glucose (mg/dL) (70-110) mg/dL Hemoglobin A1c 8.4 H (0.0-6.0) % Calcium (8.4-10.2) mg/dL Crossmatch 05/15/22 05/15/22 05/15/22 Range/Units 15:17 15:34 16:57 WBC (3.8-10.6) k/uL RBC (4.30-5.90) m/uL Hgb (13.0-17.5) gm/dL Hct (39.0-53.0) % Neutrophils # (1.3-7.7) k/uL ABG pH (7.35-7.45) ABG pCO2 (35-45) mmHg ABG pO2 (83-108) mmHg ABG HCO3 (21-25) mmol/L ABG O2 Saturation (94-97) % Sodium (137-145) mmol/L Carbon Dioxide (22-30) mmol/L BUN (9-20) mg/dL Glucose (74-99) mg/dL POC Glucose (mg/dL) 292 H 272 H (70-110) mg/dL Hemoglobin A1c (0.0-6.0) % Calcium (8.4-10.2) mg/dL Crossmatch See Detail 05/16/22 05/16/22 05/16/22 Range/Units 04:00 04:00 06:38 WBC 11.7 H (3.8-10.6) k/uL RBC 3.47 L (4.30-5.90) m/uL Hgb 10.4 L (13.0-17.5) gm/dL Hct 31.9 L (39.0-53.0) % Neutrophils # 9.6 H (1.3-7.7) k/uL ABG pH (7.35-7.45) ABG pCO2 (35-45) mmHg ABG pO2 (83-108) mmHg ABG HCO3 (21-25) mmol/L ABG O2 Saturation (94-97) % Sodium 135 L (137-145) mmol/L Carbon Dioxide 21 L (22-30) mmol/L BUN 23 H (9-20) mg/dL Glucose 211 H (74-99) mg/dL POC Glucose (mg/dL) 206 H (70-110) mg/dL Hemoglobin A1c (0.0-6.0) % Calcium 7.3 L (8.4-10.2) mg/dL Crossmatch Assessment and Plan Assessment: Postop day #1, status post lumbar decompression, L3 to pelvis. Mild metabolic acidosis, resolved. History of hypertension. History of hyperlipidemia. History of diabetes mellitus. History of hypothyroidism. History of coronavirus infection. Plan: Plan dated 05/15/2022. The patient is seen in phase 2 recovery. The patient has been extubated. The patient's on a simple mask at 5 L. The patient did receive 1 ampule of sodium bicarbonate for his metabolic acidosis. The patient's getting lactated Ringer's at 100 mL an hour. The patient will be admitted to the intensive care unit for further monitoring and management. Labs in the morning will be done. No additional recommendations are made. Medications have been entered by the nurse working with orthopedics. Prognosis is guarded. Plan dated 05/16/2022. The patient appears be doing very well. He is on 2 L. His metabolic acidosis is resolved. The patient's getting saline at 10 mL an hour. He had an uneventful night. Labs, x-rays, and medications are reviewed. In my opinion, the patient could be transferred out to the general medical floor. We will see the patient moving forward only as needed. Time with Patient: Less than 30
[2022-05-16 11:26] LABS: Glucose,Whole Blood 284 mg/dL (70-110)
--- NOTE | 2022-05-16 13:04 | P.PN ---
Subjective Progress Note Date: 05/16/22 Principal diagnosis: Lumbar spondylosis with stenosis BLE radiculopathy Patient seen and examined this afternoon. He was transferred to from ICU this morning. He is currently sitting up in chair and states he is doing well. He states his symptoms have improved since his procedure. He denies any numbness or tingling in his bilateral lower extremities. Surgical dressing is CDI, right hemovac is holding compression and patent, left hemovac had been pulled out, likely due to activity. Encouraged patient to work with PT. He denies any fever/chills, nausea/vomiting, or chest pain. Documented vitals show temp 100.1, please encourage patient to use incentive spirometer. Objective - Vital Signs Vital signs: Vital Signs Temp 97.7 F 05/16/22 04:00 Pulse 107 H 05/16/22 07:00 Resp 22 05/16/22 07:00 BP 132/49 05/16/22 06:00 Pulse Ox 95 05/16/22 07:00 FiO2 Intake & Output 05/15/22 05/16/22 05/16/22 18:59 06:59 18:59 Intake Total 3402 700 20 Output Total 1800 1455 105 Balance 1602 -755 -85 Weight 132.3 kg Intake: IV 3402 400 20 .9NS @ 100 100 400 20 Intake, IV Titration 100 Amount ceFAZolin 3 gm In Sodium 100 Chloride 0.9% 100 ml @ 200 mls/hr IVPB Q8HR [facility] Rx#:[id number] Oral 200 Output: Drainage 540 60 Left Back 10 0 Right Back 530 60 Urine 900 915 45 Estimated Blood Loss 900 Other: Voiding Method Indwelling Catheter ABP, PAP, CO, CI - Last Documented Arterial Blood Pressure 147/65 - Exam Physical Examination General: The patient is awake and alert, in no acute distress Skin: Skin is warm and dry with no obvious rashes or lesions. Hairy patches absent, no dorsal skin dimples, no cafe au lait spots, and no surgical incisions. Eye: Pupils are equal, round and reactive to light, extra-ocular movements are intact; there is normal conjunctiva bilaterally. Neck: The neck is supple, there is no tenderness and ROM intact. Cardiovascular: There is a regular rate and rhythm. No murmur, rub or gallop is appreciated. Respiratory: Lungs are clear to auscultation, respirations are non-labored, breath sounds are equal. Gastrointestinal: Soft, non-distended, non-tender abdomen. Back: There is no tenderness to palpation in the midline, paralumbar, parathoracic or buttocks region. There is no obvious deformity . Musculoskeletal: ROM limited secondary to pain and stiffness from surgical procedure. Muscle strength in all major muscle groups of bilateral upper extr emities 5/5, bilateral lower extremities 4/5. Neurological: CN 2-12 intact. There are no obvious motor or sensory deficits. Movement and coordination equal and intact. Sensory exam to light touch intact C5-T1 and intact from L2-S1. Reflexes 2/4 in bilateral upper and lower extremities. Negative Hoffmans, babinski, and clonus signs. Psychiatric: Cooperative, appropriate mood & affect, normal judgment. - Labs CBC & Chem 7: 05/16/22 04:00 05/16/22 04:00 Labs: Abnormal Lab Results - Last 24 Hours (Table) 05/15/22 05/15/22 05/15/22 Range/Units 14:35 14:48 14:58 WBC 14.7 H (3.8-10.6) k/uL RBC 3.58 L (4.30-5.90) m/uL Hgb 11.1 L (13.0-17.5) gm/dL Hct 33.1 L (39.0-53.0) % Neutrophils # (1.3-7.7) k/uL ABG pH 7.27 L (7.35-7.45) ABG pCO2 34 L (35-45) mmHg ABG pO2 187 H (83-108) mmHg ABG HCO3 15 L (21-25) mmol/L ABG O2 Saturation 99.3 H (94-97) % Sodium (137-145) mmol/L Carbon Dioxide (22-30) mmol/L BUN (9-20) mg/dL Glucose (74-99) mg/dL POC Glucose (mg/dL) (70-110) mg/dL Hemoglobin A1c 8.4 H (0.0-6.0) % Calcium (8.4-10.2) mg/dL Crossmatch 05/15/22 05/15/22 05/15/22 Range/Units 15:17 15:34 16:57 WBC (3.8-10.6) k/uL RBC (4.30-5.90) m/uL Hgb (13.0-17.5) gm/dL Hct (39.0-53.0) % Neutrophils # (1.3-7.7) k/uL ABG pH (7.35-7.45) ABG pCO2 (35-45) mmHg ABG pO2 (83-108) mmHg ABG HCO3 (21-25) mmol/L ABG O2 Saturation (94-97) % Sodium (137-145) mmol/L Carbon Dioxide (22-30) mmol/L BUN (9-20) mg/dL Glucose (74-99) mg/dL POC Glucose (mg/dL) 292 H 272 H (70-110) mg/dL Hemoglobin A1c (0.0-6.0) % Calcium (8.4-10.2) mg/dL Crossmatch See Detail 05/16/22 05/16/22 05/16/22 Range/Units 04:00 04:00 06:38 WBC 11.7 H (3.8-10.6) k/uL RBC 3.47 L (4.30-5.90) m/uL Hgb 10.4 L (13.0-17.5) gm/dL Hct 31.9 L (39.0-53.0) % Neutrophils # 9.6 H (1.3-7.7) k/uL ABG pH (7.35-7.45) ABG pCO2 (35-45) mmHg ABG pO2 (83-108) mmHg ABG HCO3 (21-25) mmol/L ABG O2 Saturation (94-97) % Sodium 135 L (137-145) mmol/L Carbon Dioxide 21 L (22-30) mmol/L BUN 23 H (9-20) mg/dL Glucose 211 H (74-99) mg/dL POC Glucose (mg/dL) 206 H (70-110) mg/dL Hemoglobin A1c (0.0-6.0) % Calcium 7.3 L (8.4-10.2) mg/dL Crossmatch Assessment and Plan Assessment: Postop day 1: L3 to S1 decompression and fusion Lumbar spondylosis with stenosis Bilateral lower extremity radiculopathy Plan: Plan: -Appreciate lean process deployment consultant and team management. -Activity: Ambulate QID, OOB all meals, up and about, limit lifting bending twisting to less than 5 lbs. Use walker or cane if needed for stability. -Daily PT/OT, increase ambulation strength and balance. - LSO Brace when up and about, not needed in bed or chair -Pain control: Adequate at this time -Meds: reviewed -GI ppx: senna, Miralax -DC lucero when up and about, bedside commode if needed -DVT PPX: OK to restart Heparin tonight -Hygiene: Shower today. Maintain dressing clean and dry. Meticulous cleaning after BMs away from the incision site -Drains: Maintain for now. DC later today pending out put and PT -Encourage IS 10x/hr -Dispo: Anticipate discharge home with homecare vs ILA *I reviewed and discussed this case with my attending Dr. Rodriguez, whom has reviewed this chart and films and is in agreement with assessment and plan of care as outlined above. I have personally seen and examined the patient, performed the documentation and the assessment and plan as written. Number of minutes spent on the visit: 15m.
[2022-05-16 17:13] LABS: Glucose,Whole Blood 315 mg/dL (70-110)
--- NOTE | 2022-05-16 17:13 | P.OP ---
Date of Procedure: 05/15/22 Preoperative Diagnosis: 1. L3-S1 spondylosis, severe 2. L4-5 and L3-4 Grade I spondylolisthesis 3. L2-S1 stenosis, severe 4. Neurogenic claudication Postoperative Diagnosis: 1. L3-S1 spondylosis, severe 2. L4-5 and L3-4 Grade I spondylolisthesis 3. L2-S1 stenosis, severe 4. Neurogenic claudication Procedure(s) Performed: 1. L4-5 and L5-S1 intradiscal osteotomy for deformity correction, 3 column, (16303, 17131) 2. L3-Pelvis posteriolateral and interbody fusion (90218, [id number])/59 3. Segmental instrumentation L3-Pelvis (88295) 4. Attachment of the caudal end of construct to bony pelvis, no sacrum (47553) 5. Insertion of biomechanical device L3-S1 (72221b2) 6. Bilateral laminectomy, complete facetecomy and foraminotomy for decompressive and deformity correction purposes L3-S1 with L2-3 bilateral laminectomy, partial medial facetectomy and foraminotomy for decompression (77926, [id number]) 7. Use of [employer] 3D navigation for screw placement (12060) Use of IONM This case took 80% longer due to the patients body habitus, BMI, comorbid conditions and the severity of his disease (mod22) Implants: -[place] Rods and screws -Amplify Slim x2 -Globus Sable x1 -MagnatOs, Allograft, Autograft, iFactor, Allocel Anesthesia: GETA Surgeon: Geo Rodriguez Conveyor Man #1: Diamante Mott (Was present) Estimated Blood Loss (ml): 1,000 IV fluids (ml): 3,000 Urine output (ml): 500 Pathology: none sent Condition: stable Disposition: PACU Indications for Procedure: Mr. Leach is presenting for evaluation of his low back pain. It was my pleasure to have seen and examined Mr. Leach. In our visit today we have had a chance to go over subjective complaints, physical examination findings and treatments including the natural course history without intervention and various interventional options. The patients imaging demonstrates: XRay Lumbar Multiview (AP, Lateral, Flexion, Extension) with AP pelvis; 5 views taken on 02/16/22 of Lumbar Spine and Pelvis: images are reviewed with the patient demonstrated severe spondylotic changes from L3 through S1. There is near complete disc collapse at L4 5 and L5-S1. There is disc dislocation and height loss at L3-L4 there is severe facet arthrosis throughout these levels. There is flattening of the normal lumbar lordosis to only 18 with the pelvic incidence around 38-40. There is no acute fracture or dislocation noted. There is no lesions noted. AP pelvis demonstrates congruent level pelvis no fracture MRI scan from01/10/2022 at [facility] of Lumbar Spine: images are reviewed with the patient. This demonstrates a grade 1 spondylolisthesis L4 on L5. There is severe disc desiccation L3 4 L4 5 and L5- S1 with height loss flattening of the normal lordosis. There is severe facet arthrosis with overgrowth as well as ligamental overgrowth contributing to severe stenosis L34 L4 5.there are varying degrees of foraminal stenosis at these levels. There are boggy facets L3 4 L4 5 and L5-S1. There is no acute fracture or dislocation. There is turbulent CSF flow causing nerve root limit motion. No lesions no acute fractures. On physical exam, Mr. Leach demonstrates severely restricted lumbar ROM with significant bilateral lower extremity radiculopathy and weakness (L>R). Patient demonstrates left foot drop as well and his gait is severely impacted by his inability to place any significant weight on the legs without instability. He has an unsteady somewhat ataxic gait that is somewhat steppage. Patient also has right lower extremity L5-S1 dermatomal deficits and S1 left lower extremity dermatomal deficit. Patient ambulating with a walker. I have explained to the patient that as their condition progresses it will cause further neurological deficits and eventual paralysis. Based on the patients imaging, physical exam, and the rapid progression and disabling nature of their symptoms, at this time I recommend surgery in the form or a: lumbar (L2-S1) Decompression and Fusion . I discussed the risk and benefits of this procedure at length with Mr. Leach. The patient and his agreed to considered pursuing the procedure abovementioned. Prior to surgery, she should follow up with her PCP (Cardio, ID, IM etc) for clearance. Questions were invited and answered, and the patient wishes to proceed as outlined below. Currently, I am recommendin.lumbar (L2-Pelvis) Decompression and Fusion Description of Procedure: The patient was seen and examined in the preoperative area. All preoperative protocols were followed. Informed consent was obtained risks and benefits of the procedure were discussed at length. Risks including bleeding infection damage to the surrounding tissue and risk of reoperation were discussed with the patient. Risk of anesthesia up to and including was a discussed with the patient. These are outlined in the risk review. They were willing to accept these risks and all the risks of surgery. The patient was given a weight-based dose of antibiotics in the form of 3 g Ancef. The patient was seen and evaluated by the anesthesia team who deemed them fit for surgery. The site was marked, the patient was willing to proceed with the procedure. The patient was transferred to the operative suite by the Department of anesthesia. They were then drifted off to sleep by the department anesthesia and GETA was performed. The patient tolerated this well. Rosales catheter was placed by nursing staff, a-traumatically. Once confirmation of lines and ventilation the patient was transferred to a prone Trios spine table very carefully. The head was secured and stable. Xray confirmed alignment. All bony prominences including wrists, elbows, axilla, chest, hips, and thighs, and feet were padded very well. Special attention was paid to the genitalia, and these were padded accordingly. SCDs were placed on bilateral lower extremities and were connected. Arms were well padded and placed at 90/90 up and out and well padded. Safety strap and tape placed on patient. Once in position, again we confirmed good ventilation capabilities and that lines were running appropriately. The patients lumbosacral pelvic was then exposed. Hair was removed for incision. 1010s were placed outlining the incision site. Standard alcohol was used to clean the incision site and allowed to dry. C-arm was used to bio-marian the patient and confirm level for incision which was marked with a skin marker. Operative briefing was performed with all teams and everyone in agreement to proceed. The patient was then prepped and draped in a normal sterile fashion. Timeout was then performed, and all parties agreed with the procedure to be performed. Midline skin incision was then made over the previously biomarked area and dissection taken down to the lumbosacral facia which was identified and cleaned with a allen. There was excessive sub-q adipose that was obtrusive and needed to be retracted. Once midline was identified, faciiotomy was made over the SP of L1-S1 and pelvis. Subperiosteal dissection was then taken down over the lamina and facet joints and TPs were exposed and trough made posteriolateral. TPs were then decorticated with high speed martin for lateral fusion. Dissection was taken out over the sacrum to the pelvis. SI joint identified and modified James sta rting point for pelvic screws identified as well. Retractors placed. Wound was irrigated and lateral image with penfield 4 placed at the pars of L4 confirmed levels for operation. SP clamp was then placed for [employer] navigation tracker and secured. The wound was then filled with NSS and Z-drape placed. A 3D ie spin was then obtained and registered. Once confirmation of accuracy screws wer e then placed from L3-Pelvis using navigation. Navigated high speed martin was used to make a ship pilot hole followed by a navigated awl-tap passed through the pedicle into the body. A ball tip probe then confirmed within the pedicle. Screw was then measured and placed using navigated screw local intermodal truck driver. After screws were placed from L3-S1, AP image confirmed safe placement of screws. Lateral image as well as navigation were then used to place bilateral pelvic screws. Starting point selected just lateral to the SI joint and S2 pseudofacet. Lateral image taken and martin used to make ship pilot hole. Gearshift then used to pass into the pelvis under lateral imaging just above the sciatic notch. 30 deg/30deg iliac oblique then taken to confirm within the teardrop and ball tip probe used to probe good bone. Screw was then measured and selected and placed under lateral imaging. This was repeated on the contralateral side. Screws were then visualized and appeared safe. A second [facility] spin was obtained and confirmed safe screw placement. Only partial pelvis was viewed in this spin due to patients body habitus. Screws were then tested, and reliably tested screws tested above 20 mA. There was an issue with IONM that precluded all screws from being successfully tested at the time. We then proceeded to decompression and interbody placement. Starting at L5-S1, bilateral laminectomy, complete facetectomy and foraminotomies were performed using highspeed bur, [place] rongure. There was exuberant bone formation, osteophytes and scar tissue surrounding these joints as well as the dura. Once exposed the neural elements were protected and an intradiscal osteotomy, 3 column, was performed for deformity correction at L5- S1. Osteotome was used to make osteotomy in L5 and S1 and for complete disc removal. A box osteotome was then used to widen this bilaterally. This was passed into the anterior 1/3 of L5. This allowed for loosening of this level and correction. An Amplify cage was then selected based on shaving and trials. Bleeding endplates were encountered and cartilage removed. Autograft, allograft were then placed anterior to the cage. The cage was then impacted into place under lateral imaging while protecting neural elements. The cage was then expanded into position and showed good lift and correction. Roman [employer] of lordosis and height achieved. Meticulous hemostasis then performed. Cage was backfilled with DBM and the area irrigated. We then proceeded to L4-5. At L4-5, bilateral laminectomy, complete facetectomy and foraminotomy was performed as described above. Again, exuberant scar tissue and bone formation was encountered and at this level specifically around the pars due to the defect and slip in this area. There was also a large disc osteophyte complex that was identified once disc space was found. The dura was carefully dissected off this anteriorly and b/l. Once encountered, the disc space was then accessed in a similar fashion and neural elements protected. Intradiscal, 3 column osteotomies, for deformity correction was then performed again at this level as described above. Once completed and complete discectomy performed there was good mobility at this level. Amplify cage was then sized and selected. Autograft and allograft was then placed anterior in the disc space and the cage was then inserted and impacted into place under lateral. AP image, as before, was taken to ensure midline placement. The cage was then expanded into position. During expansion, the cage seemed to fail to expand completely on the RHS. The LHS expanded very well and recreated height and lordosis. The cage was tested and was very stable and since it was in safe position without any other issues it was elected to keep the cage in position. The wound was irrigated. Meticulous hemostasis then performed, and attention turned to L3-4. At L3-4 again bilateral laminectomy, complete facetectomy and foraminotomy performed. The neural elements were less scarred at this level; however, it was very unstable. The elements were then protected, and disc space accessed. Sequential shaving performed until desired height and lordosis. Globus Sable cage selected, and graft placed anterior to the cage within the disc space. Cage was then placed under lateral image, expanded and had good height, lordosis and deformity correction. The wound was irrigated, and meticulous hemostasis performed once again. Attention was then drawn to leslye placement. Rods were selected, measured, cut and bent to appropriate lordosis. They were then secured into pelvic screws b/l. Sequential reduction then done into each screw and set screw placed. Set screws were then final tightened and lateral image showed good lordosis reduction with increase around 10 deg from starting. Once rods were secured, cross links were selected and placed and final tightened. The wound was then irrigated with 3L Ancef irrigation, 3L gentamycin irrigation and 3L NSS. Surgicel was then placed on the dura, which was inspected and had no injury. Then, in posteriolateral gutter was placed, MagnatOs, Autograft and allograft. This was impacted into position and surgical placed over it. 2g Vanco powder was then placed deep in the wound. A deep, subfacial drain was placed and a superficial facial drain placed. We then proceeded with layerd closure. #1 PDS placed in the deep facia. 0 Vicryl placed in the deep subq, 2-0 placed in the superficial subq and afsaneh placed in the skin. The wound edges approximated very well. The wound was then cleaned with ETOH and dressed with optifoam dressing, drain sponges and tegaderms. Drains sewed into position. IONM confirmed no changes. The patient was then transferred off the [facility] spine table to their hospital bed a-traumatically. Drains continued to hold suction. The patient was then extubated and transferred to the ICU in stable condition having tolerated the procedure with no complications.
[2022-05-16] MEDS: CYCLOBENZAPRINE 5 MG TAB PO SCH ×2 (17:28→21:18)
--- NOTE | 2022-05-16 17:46 | P.CONS ---
History of Present Illness - Reason for Consult Consult date: 05/16/22 - History of Present Illness This is a 66 year old male patient of Dr Traore who presents to the hospital for planned lumbar decompression and fusion L2 through S1. Past medical history significant for asthma, Diabetes Mellitus, hypertension, hyperlipidemia, kidney stones. He is evaluated today postoperative day #1. He did have some metabolic acidosis noted on ABG's and after being extubated in PACU was monitored overnig ht in the intensive care unit. Today seems to be doing well he is on nasal cannula 2L, does have some faint anterior expiratory wheezing. Has history of asthma not on any inhalers outpatient. Will order updrafts and encourage incentive spirometry with close monitoring. He has been downgraded to the medical floor today. Resumed on home metoprolol and gabapentin. Pain management in place. Labs today showing white count of 11.7, hgb 10.4, sodium 135, BUN 23, creatinine 1.06. Glucose in the 200s. REVIEW OF SYSTEMS: CONSTITUTIONAL: No fever, no malaise, no fatigue. HEENT: No recent visual problems or hearing problems. Denied any sore throat. CARDIOVASCULAR: No chest pain, orthopnea, PND, no palpitations, no syncope. PULMONARY: No shortness of breath, no cough, no hemoptysis. Reports wheezing. GASTROINTESTINAL: No diarrhea, no nausea, no vomiting, no abdominal pain. NEUROLOGICAL: No headaches, no weakness, no numbness. HEMATOLOGICAL: Denies any bleeding or petechiae. GENITOURINARY: Denies any burning micturition, frequency, or urgency. MUSCULOSKELETAL/RHEUMATOLOGICAL: Denies any joint pain, swelling, or any muscle pain. Reports some lower back pain 5/10. ENDOCRINE: Denies any polyuria or polydipsia. The rest of the 14-point review of systems is negative. PHYSICAL EXAMINATION: GENERAL: The patient is alert and oriented x3, not in any acute distress. Well developed, well nourished. HEENT: Pupils are round and equally reacting to light. EOMI. No scleral icterus. No conjunctival pallor. Normocephalic, atraumatic. No pharyngeal erythema. No thyromegaly. CARDIOVASCULAR: S1 and S2 present. No murmurs, rubs, or gallops. PULMONARY: Faint anterior expiratory wheezing. ABDOMEN: Soft, nontender, nondistended, normoactive bowel sounds. No palpable organomegaly. MUSCULOSKELETAL: No joint swelling or deformity. EXTREMITIES: No cyanosis, clubbing, or pedal edema. NEUROLOGICAL: Gross neurological examination did not reveal any focal deficits. SKIN: No rashes. Assessment and plan Assessment Postoperative day #1 lumbar decompression and fusion L2 through S1 Metabolic acidosis postoperatively was monitored in the intensive care unit, metabolic acidosis has resolved History asthma with mild acute exacerbation requiring 2L nasal cannula History of hypertension History of hyperlipidemia Diabetes Mellitus type 2 uncontrolled hgb a1c 8.4. Hypothyroidism GI prophylaxis DVT prophylaxis as per primary Full Code Plan Pain management as per primary Duonebs as needed and encourage incentive spirometer AM chest xray follow up and can titrate oxygen as tolerated Continue accuchecks and increased insulin for tighter glycemic control Recommend to resume metformin and glipizide tomorrow Recommend to hold valsartan at this time BP is low/normal Thank you for this consultation The impression and plan of care has been dictated by Verenice Rosales Nurse Practitioner as directed. Dr. Hira MD I have performed a history and physical examination and medical decision making of this patient, discussed the same with the dictator, and agree with the dictators assessment and plan as written, documented as a scribe. Based on total visit time, I have performed more than 50% of this visit. Past Medical History Past Medical History: Asthma, Diabetes Mellitus, Hyperlipidemia, Hypertension, Thyroid Disorder Additional Past Medical History / Comment(s): No treatment for Asthma needed in many many years. Hx kidney stones. History of Any Multi-Drug Resistant Organisms: None Reported Past Surgical History: Hernia Repair Additional Past Surgical History / Comment(s): Surgery for perforated ulcer at 15 yrs of age. Past Anesthesia/Blood Transfusion Reactions: No Reported Reaction Additional Past Anesthesia/Blood Transfusion Reaction / Comm: "Severe Needle Phobia." Past Psychological History: No Psychological Hx Reported Smoking Status: Former smoker Past Alcohol Use History: Rare Additional Past Alcohol Use History / Comment(s): Smoked briefly in high school. Past Drug Use History: None Reported - Past Family History Mother Family Medical History: No Reported History Additional Family Medical History / Comment(s): Strong family hx of Akua's Disease. Medications and Allergies Home Medications Medication Instructions Recorded Confirmed Type Empagliflozin [Jardiance] 25 mg PO QAM 05/13/22 05/15/22 History Ezetimibe [Zetia] 10 mg PO HS 05/13/22 05/13/22 History Gabapentin 600 mg PO HS 05/13/22 05/13/22 History Gabapentin [Neurontin] 300 mg PO BID 05/13/22 05/15/22 History Levothyroxine Sodium 150 mcg PO QAM 05/13/22 05/13/22 History Metoprolol Tartrate 25 mg PO BID 05/13/22 05/13/22 History Rosuvastatin Calcium 10 mg PO HS 05/13/22 05/13/22 History Valsartan 320 mg PO QAM 05/13/22 05/13/22 History glipiZIDE 5 mg PO BID 05/13/22 05/15/22 History metFORMIN HCL 1,000 mg PO BID 05/13/22 05/13/22 History Allergies Allergy/AdvReac Type Severity Reaction Status Date / Time No Known Allergies Allergy Verified 05/15/22 05:58 Physical Exam Vitals: Vital Signs Temp Pulse Pulse Resp BP BP Pulse Ox 05/16/22 07:00 107 H 22 95 05/16/22 06:00 100 18 132/49 97 05/16/22 05:00 98 17 108/64 95 05/16/22 04:00 97.7 F 105 H 21 113/76 94 L 05/16/22 03:00 106 H 17 97 05/16/22 02:00 106 H 18 96/68 93 L 05/16/22 01:00 105 H 15 98/67 94 L 05/16/22 00:03 102 H 18 98/67 94 L 05/16/22 00:00 97.5 F L 102 H 17 89/61 94 L 05/15/22 23:00 106 H 19 122/71 93 L 05/15/22 22:00 112 H 20 92 L 05/15/22 21:00 112 H 17 140/73 94 L 05/15/22 20:00 97.5 F L 113 H 17 142/83 96 05/15/22 19:14 93 L 05/15/22 19:00 109 H 14 115/76 94 L 05/15/22 18:30 103 H 18 92 L 05/15/22 18:00 104 H 17 123/71 90 L 05/15/22 17:30 115 H 14 88 L 05/15/22 17:00 97.4 F L 112 H 17 141/73 90 L 05/15/22 16:00 111 H 16 138/73 92 L 05/15/22 15:45 110 H 16 145/77 95 05/15/22 15:30 97 F L 108 H 14 132/73 95 Intake and Output 05/15/22 05/16/22 05/16/22 22:59 06:59 14:59 Intake Total 640 260 20 Output Total 710 845 105 Balance -70 -585 -85 Intake: IV 440 160 20 .9NS @ 100 340 160 20 Intake, IV Titration 100 Amount ceFAZolin 3 gm In Sodium 100 Chloride 0.9% 100 ml @ 200 mls/hr IVPB Q8HR [facility] Rx#:[id number] Oral 200 Output: Drainage 200 340 60 Left Back 0 10 0 Right Back 200 330 60 Urine 510 505 45 Other: Voiding Method Indwelling Catheter Indwelling Catheter Weight 132.3 kg ABP, PAP, CO, CI - Last 8 Hours Arterial Blood Pressure 147/65 Arterial Blood Pressure 132/50 Arterial Blood Pressure 113/50 Arterial Blood Pressure 126/51 Arterial Blood Pressure 138/52 Arterial Blood Pressure 103/44 Arterial Blood Pressure 112/45 Results CBC & Chem 7: 05/16/22 04:00 05/16/22 04:00 Labs: Abnormal Lab Results - Last 24 Hours (Table) 05/15/22 05/15/22 05/15/22 Range/Units 14:35 14:48 14:58 WBC 14.7 H (3.8-10.6) k/uL RBC 3.58 L (4.30-5.90) m/uL Hgb 11.1 L (13.0-17.5) gm/dL Hct 33.1 L (39.0-53.0) % Neutrophils # (1.3-7.7) k/uL ABG pH 7.27 L (7.35-7.45) ABG pCO2 34 L (35-45) mmHg ABG pO2 187 H (83-108) mmHg ABG HCO3 15 L (21-25) mmol/L ABG O2 Saturation 99.3 H (94-97) % Sodium (137-145) mmol/L Carbon Dioxide (22-30) mmol/L BUN (9-20) mg/dL Glucose (74-99) mg/dL POC Glucose (mg/dL) (70-110) mg/dL Hemoglobin A1c 8.4 H (0.0-6.0) % Calcium (8.4-10.2) mg/dL Crossmatch 05/15/22 05/15/22 05/15/22 Range/Units 15:17 15:34 16:57 WBC (3.8-10.6) k/uL RBC (4.30-5.90) m/uL Hgb (13.0-17.5) gm/dL Hct (39.0-53.0) % Neutrophils # (1.3-7.7) k/uL ABG pH (7.35-7.45) ABG pCO2 (35-45) mmHg ABG pO2 (83-108) mmHg ABG HCO3 (21-25) mmol/L ABG O2 Saturation (94-97) % Sodium (137-145) mmol/L Carbon Dioxide (22-30) mmol/L BUN (9-20) mg/dL Glucose (74-99) mg/dL POC Glucose (mg/dL) 292 H 272 H (70-110) mg/dL Hemoglobin A1c (0.0-6.0) % Calcium (8.4-10.2) mg/dL Crossmatch See Detail 05/16/22 05/16/22 05/16/22 Range/Units 04:00 04:00 06:38 WBC 11.7 H (3.8-10.6) k/uL RBC 3.47 L (4.30-5.90) m/uL Hgb 10.4 L (13.0-17.5) gm/dL Hct 31.9 L (39.0-53.0) % Neutrophils # 9.6 H (1.3-7.7) k/uL ABG pH (7.35-7.45) ABG pCO2 (35-45) mmHg ABG pO2 (83-108) mmHg ABG HCO3 (21-25) mmol/L ABG O2 Saturation (94-97) % Sodium 135 L (137-145) mmol/L Carbon Dioxide 21 L (22-30) mmol/L BUN 23 H (9-20) mg/dL Glucose 211 H (74-99) mg/dL POC Glucose (mg/dL) 206 H (70-110) mg/dL Hemoglobin A1c (0.0-6.0) % Calcium 7.3 L (8.4-10.2) mg/dL Crossmatch Assessment and Plan Time with Patient: Less than 30
[2022-05-16] MEDS: IPRATROPIUM-ALBUTEROL 3 ML NEB INHALATION PRN (18:03)
[2022-05-16] MEDS ORDERED: GABAPENTIN 300 MG CAP PO SCH (21:00)
[2022-05-16] MEDS ORDERED: INSULIN DETEMIR (LEVEMIR) 100 UNIT/ML SYR SQ SCH (21:00)
[2022-05-16 21:09] LABS: Glucose,Whole Blood 261 mg/dL (70-110)
[2022-05-16] MEDS: HYDROmorphone 0.5 MG/0.5 ML SYRINGE IVP PRN (21:17)
[2022-05-16] MEDS: ATORVASTATIN 20 MG TAB PO SCH (21:18)
[2022-05-16] MEDS: EZETIMIBE 10 MG TAB PO SCH (21:18)
[2022-05-17] MEDS: LEVOTHYROXINE 75 MCG TAB PO SCH (05:57)
[2022-05-17] MEDS: HYDROcodone/APAP 10-325MG 1 EACH TAB PO PRN ×4 (06:02→21:09)
[2022-05-17] MEDS: LACTATED RINGERS 1,000 ML IV SCH (06:48)
--- NOTE | 2022-05-17 07:31 | XR ---
EXAMINATION TYPE: XR chest 2V DATE OF EXAM: 05/17/2022 7:24 AM COMPARISON: None TECHNIQUE: XR chest 2V Frontal and lateral views of the chest. CLINICAL INDICATION:Male, 66 years old with history of hypoxia; FINDINGS: Lungs/Pleura: There is no evidence of pleural effusion, focal consolidation, or pneumothorax. Elevat ed left diaphragm with atelectasis. Pulmonary vascularity: Unremarkable. Heart/mediastinum: Cardiomediastinal silhouette is unremarkable. Musculoskeletal: No acute osseous pathology. IMPRESSION: Elevated left diaphragm with atelectasis no obvious other acute cardiopulmonary disease/process.
[2022-05-17] MEDS ORDERED: GABAPENTIN 300 MG CAP PO SCH (08:00)
[2022-05-17 08:01] LABS: Glucose,Whole Blood 238 mg/dL (70-110)
[2022-05-17 09:20] LABS: African American GFR (CKD) 45 (>60 ml/min/1.73 sqM); Anion Gap 8 mmol/L; Blood Urea Nitrogen 34 mg/dL (9-20); Calcium 6.9 mg/dL (8.4-10.2); Carbon Dioxide 20 mmol/L (22-30); Chloride 102 mmol/L (98-107); Glucose 285 mg/dL (74-99); Non-African American GFR(CKD) 39 (>60 ml/min/1.73 sqM); Sodium 130 mmol/L (137-145)
--- NOTE | 2022-05-17 09:21 | P.PN ---
Subjective Progress Note Date: 05/17/22 Principal diagnosis: Lumbar spondylosis with stenosis BLE radiculopathy Patient seen and examined this afternoon. He is currently sitting up in a wheelchair that he requested and states he is doing well. He continues to deny any numbness or tingling in his bilateral lower extremities. Surgical dressing is CDI, right hemovac is holding compression and patent. Encouraged patient to work with PT. He denies any fever/chills, nausea/vomiting, or chest pain. Objective - Vital Signs Vital signs: Vital Signs Temp 99.8 F H 05/17/22 02:00 Pulse 131 H 05/17/22 08:08 Resp 18 05/17/22 02:00 BP 116/64 05/17/22 02:00 Pulse Ox 93 L 05/17/22 08:08 FiO2 Intake & Output 05/16/22 05/17/22 05/17/22 18:59 06:59 18:59 Intake Total 630 100 Output Total 475 800 Balance 155 -700 Intake: IV 50 .9NS @ 100 50 Intake, IV Titration 100 100 Amount ceFAZolin 3 gm In Sodium 100 100 Chloride 0.9% 100 ml @ 200 mls/hr IVPB Q8HR [facility] Rx#:[id number] Oral 480 Output: Drainage 340 150 Left Back 0 Right Back 340 150 Urine 135 650 Other: Voiding Method Indwelling Catheter ABP, PAP, CO, CI - Last Documented Arterial Blood Pressure 107/54 - Exam Physical Examination General: The patient is awake and alert, in no acute distress Skin: Skin is warm and dry with no obvious rashes or lesions. Hairy patches absent, no dorsal skin dimples, no cafe au lait spots, and no surgical incisions. Eye: Pupils are equal, round and reactive to light, extra-ocular movements are intact; there is normal conjunctiva bilaterally. Neck: The neck is supple, there is no tenderness and ROM intact. Cardiovascular: There is a regular rate and rhythm. No murmur, rub or gallop is appreciated. Respiratory: Lungs are clear to auscultation, respirations are non-labored, breath sounds are equal. Gastrointestinal: Soft, non-distended, non-tender abdomen. Back: There is no tenderness to palpation in the midline, paralumbar, parathoracic or buttocks region. There is no obvious deformity . Musculoskeletal: ROM limited secondary to pain and stiffness from surgical procedure. Muscle strength in all major muscle groups of bilateral upper extremities 5/5, bilateral lower extremities 4/5. Neurological: CN 2-12 intact. There are no obvious motor or sensory deficits. Movement and coordination equal and intact. Sensory exam to light touch intact C5-T1 and intact from L2-S1. Reflexes 2/4 in bilateral upper and lower extremi ties. Negative Hoffmans, babinski, and clonus signs. Psychiatric: Cooperative, appropriate mood & affect, normal judgment. - Labs CBC & Chem 7: 05/16/22 04:00 05/16/22 04:00 Labs: Abnormal Lab Results - Last 24 Hours (Table) 05/16/22 05/16/22 05/16/22 Range/Units 11:04 17:11 21:03 POC Glucose (mg/dL) 284 H 315 H 261 H (70-110) mg/dL 05/17/22 Range/Units 07:59 POC Glucose (mg/dL) 238 H (70-110) mg/dL Assessment and Plan Assessment: Postop day 2: L3 to S1 decompression and fusion Lumbar spondylosis with stenosis Bilateral lower extremity radiculopathy Plan: Plan: -Appreciate parts consultant and team management. -Activity: Ambulate QID, OOB all meals, up and about, limit lifting bending twisting to less than 5 lbs. Use walker or cane if needed for stability. -Daily PT/OT, increase ambulation strength and balance. - LSO Brace when up and about, not needed in bed or chair -Pain control: Adequate at this time -Meds: reviewed -GI ppx: senna, Miralax -DC lucero when up and about, bedside commode if needed -DVT PPX: OK to restart Heparin tonight -Hygiene: Shower today. Maintain dressing clean and dry. Meticulous cleaning after BMs away from the incision site -Drains: Maintain for now. DC later today pending out put and PT -Encourage IS 10x/hr -Dispo: Anticipate discharge home with homecare vs ILA *I reviewed and discussed this case with my attending Dr. Rodriguez, whom has reviewed this chart and films and is in agreement with assessment and plan of care as outlined above. I have personally seen and examined the patient, performed the documentation and the assessment and plan as written. Number of minutes spent on the visit: 15m.
[2022-05-17] MEDS: ceFAZolin 3 GM in SODIUM CHLORIDE 0.9% 100 ML IVPB SCH ×3 (10:41→23:30)
[2022-05-17] MEDS: METOPROLOL TARTRATE 25 MG TAB PO SCH ×2 (10:42→21:09)
[2022-05-17] MEDS: CYCLOBENZAPRINE 5 MG TAB PO SCH ×3 (10:43→21:10)
[2022-05-17] MEDS: DAPAGLIFLOZIN PROPANEDIOL 10 MG TABLET PO SCH (10:43)
[2022-05-17] MEDS: INSULIN ASPART (NovoLOG) 100 UNIT/ML VIAL SQ SCH ×7 (10:46→21:10)
[2022-05-17] MEDS: SODIUM CHLORIDE 0.9% 1,000 ML IV SCH ×2 (10:47→23:31)
[2022-05-17 12:31] LABS: Glucose,Whole Blood 325 mg/dL (70-110)
--- NOTE | 2022-05-17 14:54 | P.PN ---
Subjective Progress Note Date: 05/17/22 This is a 66 year old male patient of Dr Traore who presents to the hospital for planned lumbar decompression and fusion L2 through S1. Past medical history significant for asthma, Diabetes Mellitus, hypertension, hyperlipidemia, kidney stones. He is evaluated today postoperative day #1. He did have some metabolic acidosis noted on ABG's and after being extubated in PACU was monitored overnight in the intensive care unit. Today seems to be doing well he is on nasal cannula 2L, does have some faint anterior expiratory wheezing. Has history of asthma not on any inhalers outpatient. Will order updrafts and encourage incentive spirometry with close monitoring. He has been downgraded to the medical floor today. Resumed on home metoprolol and gabapentin. Pain management in place. Labs today showing white count of 11.7, hgb 10.4, sodium 135, BUN 23, creatinine 1.06. Glucose in the 200s. 05/17/2022 Patient continues on 2L nasal cannula, using incentive spirometer. Patient reports eating and drinking well. Sodium has dropped to 130 and creatinine up to 1.81. Although proBNP is within normal range at 164 patient does have pitting ankle edema. Denies history of CHF. He will be started on normal saline at this time however tomorrow if creatinine is increased or sodium drops further fluids will need to be stopped and patient will need to be started on lasix. Patient does have postoperative fever secondary to atelectasis which was demonstrated on chest xray. He is tachycardic today heart rate in the 130s which is expected to improve with IV fluids and if blood pressure improves will increase his beta inder. Glucose elevated into the 300s today and insulin has been increased. Having issues with postoperative urinary retention and requiring urinary strait catheterization. Review of Systems Constitutional: Denied any fatigue denied any fever. Cardio vascular: denied any chest pain, palpitations Gastrointestinal: denied any nausea, vomiting, diarrhea Pulmonary: Denied any shortness of breath cough Neurologic denied any new focal deficits All inpatient medications were reviewed and appropriate changes in these medications as dictated in the interval history and assessment and plan. PHYSICAL EXAMINATION: GENERAL: The patient is alert and oriented x3, not in any acute distress. Well developed, well nourished. HEENT: Pupils are round and equally reacting to light. EOMI. No scleral icterus. No conjunctival pallor. Normocephalic, atraumatic. No pharyngeal erythema. No thyromegaly. CARDIOVASCULAR: S1 and S2 present. No murmurs, rubs, or gallops. PULMONARY: Lung sounds have improved today with increased aeration no wheezing noted on exam. no crackles noted. ABDOMEN: Soft, nontender, nondistended, normoactive bowel sounds. No palpable organomegaly. MUSCULOSKELETAL: No joint swelling or deformity. EXTREMITIES: No cyanosis, clubbing. +1 pitting lower extremity and ankle edema NEUROLOGICAL: Gross neurological examination did not reveal any focal deficits. Post surgical dressing intact. SKIN: No rashes. Assessment and plan Assessment Postoperative day #2 lumbar decompression and fusion L2 through S1 Acute kidney injury with urinary retention postoperatively Hyponatremia, hypovolemic Metabolic acidosis postoperatively was monitored in the intensive care unit, metabolic acidosis has resolved History asthma with mild acute exacerbation requiring 2L nasal cannula Sinus tachycardia History of hypertension currently normotensive History of hyperlipidemia Diabetes Mellitus type 2 uncontrolled hgb a1c 8.4. Hypothyroidism GI prophylaxis DVT prophylaxis as per primary Full Code Plan Start normal saline at 100 mls/hr Titrate oxygen as tolerated and encourage incentive spirometer Pain management as per primary Continue accuchecks and increased insulin for tighter glycemic control Hold metformin and glipizide secondary to renal function Recommend to hold valsartan at this time BP is low/normal Check TSH/T4 Start Flomax and continue with Q6h bladder scan and cath as needed. Possibly will need to reinsert IDC and follow up with urology. Compression stockings or NEREIDA wrap to bilateral lower extremities Repeat BMP in AM, if creatinine is increased on tomorrows labs, fluids will need to be stopped and patient will need lasix. Pending PT/OT consultation The impression and plan of care has been dictated by Verenice Rosales, Nurse Practitioner as directed. Dr. Hira MD I have performed a history and physical examination and medical decision making of this patient, discussed the same with the dictator, and agree with the dictators assessment and plan as written, documented as a scribe. Based on total visit time, I have performed more than 50% of this visit. Objective - Vital Signs Vital signs: Vital Signs Temp 100.4 F H 05/17/22 07:47 Pulse 131 H 05/17/22 08:08 Resp 18 05/17/22 07:47 BP 97/63 05/17/22 07:47 Pulse Ox 93 L 05/17/22 08:08 FiO2 Intake & Output 05/16/22 05/17/22 05/17/22 18:59 06:59 18:59 Intake Total 630 100 Output Total 475 800 Balance 155 -700 Intake: IV 50 .9NS @ 100 50 Intake, IV Titration 100 100 Amount ceFAZolin 3 gm In Sodium 100 100 Chloride 0.9% 100 ml @ 200 mls/hr IVPB Q8HR [facility] Rx#:[id number] Oral 480 Output: Drainage 340 150 Left Back 0 Right Back 340 150 Urine 135 650 Other: Voiding Method Indwelling Catheter ABP, PAP, CO, CI - Last Documented Arterial Blood Pressure 107/54 - Labs CBC & Chem 7: 05/16/22 04:00 05/17/22 08:42 Labs: Abnormal Lab Results - Last 24 Hours (Table) 05/16/22 05/16/22 05/16/22 Range/Units 11:04 17:11 21:03 Sodium (137-145) mmol/L Carbon Dioxide (22-30) mmol/L BUN (9-20) mg/dL Creatinine (0.66-1.25) mg/dL Glucose (74-99) mg/dL POC Glucose (mg/dL) 284 H 315 H 261 H (70-110) mg/dL Calcium (8.4-10.2) mg/dL 05/17/22 05/17/22 Range/Units 07:59 08:42 Sodium 130 L (137-145) mmol/L Carbon Dioxide 20 L (22-30) mmol/L BUN 34 H (9-20) mg/dL Creatinine 1.81 H (0.66-1.25) mg/dL Glucose 285 H (74-99) mg/dL POC Glucose (mg/dL) 238 H (70-110) mg/dL Calcium 6.9 L (8.4-10.2) mg/dL Assessment and Plan Time with Patient: Less than 30
[2022-05-17] MEDS: IPRATROPIUM-ALBUTEROL 3 ML NEB INHALATION PRN (16:14)
[2022-05-17] MEDS: GABAPENTIN 300 MG CAP PO SCH ×2 (16:14→21:10)
[2022-05-17 18:10] LABS: Glucose,Whole Blood 180 mg/dL (70-110)
[2022-05-17] MEDS: TAMSULOSIN 0.4 MG CAP.ER.24H PO SCH (18:32)
[2022-05-17 20:50] LABS: Glucose,Whole Blood 270 mg/dL (70-110)
[2022-05-17] MEDS ORDERED: INSULIN DETEMIR (LEVEMIR) 100 UNIT/ML SYR SQ SCH ×2 (21:00)
[2022-05-17] MEDS: HEPARIN SODIUM,PORCINE/PF 5,000 UNIT/0.5 ML SYRINGE SQ SCH (21:09)
[2022-05-17] MEDS: EZETIMIBE 10 MG TAB PO SCH (21:09)
[2022-05-17] MEDS: ATORVASTATIN 20 MG TAB PO SCH (21:10)
[2022-05-18] MEDS: HYDROcodone/APAP 10-325MG 1 EACH TAB PO PRN ×3 (02:28→20:13)
[2022-05-18] MEDS: LEVOTHYROXINE 75 MCG TAB PO SCH (05:31)
--- NOTE | 2022-05-18 06:58 | P.PN ---
Subjective Progress Note Date: 05/18/22 Principal diagnosis: Lumbar spondylosis with stenosis BLE radiculopathy Patient seen and examined this morning. He is currently resting in bed. Surgical dressing is CDI, right hemovac is holding compression and patent. Instructed patient on use of incentive spirometer, had patient demonstrate. Encouragement needed for patient to perform IS x10 q1hr while he is awake. He c ontinues to deny any numbness or tingling to bilateral lower extremities. Patient to work with physical therapy today. He denies any fever/chills, nausea/vomiting, or chest pain. Objective - Vital Signs Vital signs: Vital Signs Temp 99.5 F 05/18/22 01:50 Pulse 113 H 05/18/22 01:50 Resp 17 05/18/22 01:50 BP 118/66 05/18/22 01:50 Pulse Ox 92 L 05/18/22 01:50 FiO2 Intake & Output 05/17/22 05/17/22 05/18/22 06:59 18:59 06:59 Intake Total 917 157 7525 Output Total 800 1473 2173 Balance -700 -1273 -973 Intake: IV 1200 .9NS @ 100 1200 Intake, IV Titration 100 200 Amount ceFAZolin 3 gm In Sodium 100 200 Chloride 0.9% 100 ml @ 200 mls/hr IVPB Q8HR [facility] Rx#:[id number] Output: Drainage 150 240 150 Right Back 150 240 150 Urine 447 580 8997 Post Void Residual 583 823 Other: Voiding Method Indwelling Catheter ABP, PAP, CO, CI - Last Documented Arterial Blood Pressure 107/54 - Labs CBC & Chem 7: 05/16/22 04:00 05/17/22 08:42 Labs: Abnormal Lab Results - Last 24 Hours (Table) 05/17/22 05/17/22 05/17/22 Range/Units 07:59 08:42 12:29 Sodium 130 L (137-145) mmol/L Carbon Dioxide 20 L (22-30) mmol/L BUN 34 H (9-20) mg/dL Creatinine 1.81 H (0.66-1.25) mg/dL Glucose 285 H (74-99) mg/dL POC Glucose (mg/dL) 238 H 325 H (70-110) mg/dL Calcium 6.9 L (8.4-10.2) mg/dL 05/17/22 05/17/22 Range/Units 18:09 20:47 Sodium (137-145) mmol/L Carbon Dioxide (22-30) mmol/L BUN (9-20) mg/dL Creatinine (0.66-1.25) mg/dL Glucose (74-99) mg/dL POC Glucose (mg/dL) 180 H 270 H (70-110) mg/dL Calcium (8.4-10.2) mg/dL Assessment and Plan Assessment: Postop day 3: L3 to S1 decompression and fusion Lumbar spondylosis with stenosis Bilateral lower extremity radiculopathy Plan: Plan: -Appreciate sales consultant insurance and team management. -Activity: Ambulate QID, OOB all meals, up and about, limit lifting bending twisting to less than 5 lbs. Use walker or cane if needed for stability. -Daily PT/OT, increase ambulation strength and balance. - LSO Brace when up and about, not needed in bed or chair -Pain control: Adequate at this time -Meds: reviewed -GI ppx: senna, Miralax -DC lucero when up and about, bedside commode if needed -DVT PPX: OK to restart Heparin tonight -Hygiene: Shower today. Maintain dressing clean and dry. Meticulous cleaning after BMs away from the incision site -Drains: Maintain for now. Continue to record output. -Encourage IS 10x/hr -Dispo: Anticipate discharge home with homecare vs ILA *I reviewed and discussed this case with my attending Dr. Rodriguez, whom has reviewed this chart and films and is in agreement with assessment and plan of care as outlined above. I have personally seen and examined the patient, performed the documentation and the assessment and plan as written. Number of minutes spent on the visit: 15m.
[2022-05-18 07:25] LABS: Glucose,Whole Blood 238 mg/dL (70-110)
[2022-05-18] MEDS: SODIUM CHLORIDE 0.9% 1,000 ML IV SCH (07:46)
[2022-05-18] MEDS: INSULIN ASPART (NovoLOG) 100 UNIT/ML VIAL SQ SCH ×7 (08:48→21:25)
[2022-05-18] MEDS: ceFAZolin 3 GM in SODIUM CHLORIDE 0.9% 100 ML IVPB SCH ×3 (08:49→23:52)
[2022-05-18] MEDS: METOPROLOL TARTRATE 25 MG TAB PO SCH ×2 (08:51→21:25)
[2022-05-18] MEDS: HEPARIN SODIUM,PORCINE/PF 5,000 UNIT/0.5 ML SYRINGE SQ SCH ×2 (08:51→21:25)
[2022-05-18] MEDS: GABAPENTIN 300 MG CAP PO SCH ×3 (08:51→21:25)
[2022-05-18] MEDS: FAMOTIDINE 20 MG TAB PO SCH (08:51)
[2022-05-18] MEDS: CYCLOBENZAPRINE 5 MG TAB PO SCH ×3 (08:51→21:25)
[2022-05-18] MEDS: DAPAGLIFLOZIN PROPANEDIOL 10 MG TABLET PO SCH (08:52)
[2022-05-18 09:38] LABS: African American GFR (CKD) 42.2 (60.0-200.0); Anion Gap 13.1 mmol/L (10.00-18.00); Blood Urea Nitrogen 36.1 mg/dL (9.0-27.0); Calcium 7.6 mg/dL (8.7-10.3); Carbon Dioxide 18.9 mmol/L (20.0-27.5); Non-African American GFR(CKD) 36.4 (60.0-200.0); Potassium 4.3 mmol/L (3.5-5.5)
[2022-05-18 11:38] LABS: Glucose,Whole Blood 259 mg/dL (70-110)
[2022-05-18] MEDS ORDERED: FUROSEMIDE 10 MG/ML 4 ML VIAL IV STA (13:19)
--- NOTE | 2022-05-18 15:48 | PN ---
PROGRESS NOTE DATE OF SERVICE: 05/18/2022 SUBJECTIVE: This is a 66-year-old gentleman, who was admitted after lumbar decompression, who also had a kidney injury also. No chest pain. No palpitation. OBJECTIVE: VITAL SIGNS: Pulse is 125, blood pressure 140/60, respirations 18. CHEST: Clear to auscultation. CARDIOVASCULAR: S1 and S2. ABDOMEN: Soft. BACK: Status post surgery. LABORATORY DATA: Creatinine 1.9. The rest of the labs are noted. ASSESSMENT: 1. Status post lumbar decompression and fusion, L2 to S1. 2. Acute kidney injury. 3. Hyponatremia. 4. Multiple medical issues. RECOMMENDATIONS: Recommend to continue current medications and symptomatic treatment. Repeat labs tomorrow. Continue DVT prophylaxis. Monitor blood sugars closely. Further recommendations to follow. MMODL / IJN: [id number] /
[2022-05-18 15:59] LABS: Basophils % (A) 0 %; Eosinophils # (A) 0.1 k/uL (0-0.7); Eosinophils % (A) 1 %; HCT 30.8 % (39.0-53.0); HGB 9.8 gm/dL (13.0-17.5); Hypochromasia Marked; Lymphocytes % (A) 9 %; MCH 31.4 pg (25.0-35.0); Mean Platelet Volume 10.1; Monocytes # (A) 0.5 k/uL (0-1.0); Monocytes % (A) 4 %; Neutrophils # (A) 9.2 k/uL (1.3-7.7); Neutrophils % (A) 84 %; Platelet Count 137 k/uL (150-450); RBC 3.14 m/uL (4.30-5.90); RDW 12.9 % (11.5-15.5)
[2022-05-18 17:36] LABS: Glucose,Whole Blood 162 mg/dL (70-110)
[2022-05-18] MEDS: TAMSULOSIN 0.4 MG CAP.ER.24H PO SCH (18:08)
[2022-05-18 20:29] LABS: Glucose,Whole Blood 177 mg/dL (70-110)
[2022-05-18] MEDS: IPRATROPIUM-ALBUTEROL 3 ML NEB INHALATION SCH ×2 (21:01→21:19)
[2022-05-18] MEDS: INSULIN DETEMIR (LEVEMIR) 100 UNIT/ML SYR SQ SCH (21:25)
[2022-05-18] MEDS: EZETIMIBE 10 MG TAB PO SCH (21:25)
[2022-05-18] MEDS: SENNOSIDES 8.6 MG TAB PO SCH (21:25)
[2022-05-18] MEDS: ATORVASTATIN 20 MG TAB PO SCH (21:25)
[2022-05-19] MEDS: HYDROcodone/APAP 10-325MG 1 EACH TAB PO PRN ×3 (02:31→20:09)
[2022-05-19] MEDS: LEVOTHYROXINE 75 MCG TAB PO SCH (05:35)
[2022-05-19 07:51] LABS: Glucose,Whole Blood 142 mg/dL (70-110)
[2022-05-19] MEDS: IPRATROPIUM-ALBUTEROL 3 ML NEB INHALATION SCH ×4 (07:54→19:56)
[2022-05-19] MEDS: INSULIN ASPART (NovoLOG) 100 UNIT/ML VIAL SQ SCH ×7 (07:58→21:47)
--- NOTE | 2022-05-19 08:03 | P.PN ---
Subjective Progress Note Date: 05/19/22 Principal diagnosis: Lumbar spondylosis with stenosis BLE radiculopathy Patient seen and examined this morning. He is currently resting in bed. Surgical dressing is CDI, right hemovac is to gravity and patent. Instructed patient on use of incentive spirometer, had patient demonstrate. Patient is more alert this morning. He states he does not know what happened yesterday with feeling out of sorts. Lucero catheter had been initiated yesterday due to HUNG and retention, Urology consulted. He continues to deny any numbness or tingling to bilateral lower extremities. Patient to work with physical therapy today. He denies any fever/chills, nausea/vomiting, or chest pain. Objective - Vital Signs Vital signs: Vital Signs Temp 99.6 F 05/19/22 02:00 Pulse 105 H 05/19/22 02:00 Resp 16 05/19/22 02:00 BP 117/62 05/19/22 02:00 Pulse Ox 93 L 05/19/22 02:00 FiO2 Intake & Output 05/18/22 05/19/22 05/19/22 18:59 06:59 18:59 Intake Total 800 590 Output Total 2700 1900 Balance -1900 -1310 Intake: Intake, IV Titration 800 Amount Sodium Chloride 0.9% 1, 700 000 ml @ 100 mls/hr IV . Q10H [facility] Rx#:[id number] ceFAZolin 3 gm In Sodium 100 Chloride 0.9% 100 ml @ 200 mls/hr IVPB Q8HR [facility] Rx#:[id number] Oral 590 Output: Drainage 100 100 Right Back 100 100 Urine 2600 1800 Other: Voiding Method Indwelling Catheter Indwelling Catheter ABP, PAP, CO, CI - Last Documented Arterial Blood Pressure 107/54 - Exam Physical Examination General: The patient is awake and alert, in no acute distress Skin: Skin is warm and dry with no obvious rashes or lesions. Hairy patches absent, no dorsal skin dimples, no cafe au lait spots. Surgical incision to the lumbar spine with hemovac present on the right of the incision. Eye: Pupils are equal, round and reactive to light, extra-ocular movements are intact; there is normal conjunctiva bilaterally. Neck: The neck is supple, there is no tenderness and ROM intact. Cardiovascular: There is a regular rate and rhythm. No murmur, rub or gallop is appreciated. Respiratory: Lungs are clear to auscultation, respirations are non-labored, breath sounds are equal. Gastrointestinal: Soft, non-distended, non-tender abdomen. Back: There is no tenderness to palpation in the midline, paralumbar, parathoracic or buttocks region. There is no obvious deformity . Musculoskeletal: ROM limited secondary to pain and stiffness from surgical procedure. Muscle strength in all major muscle groups of bilateral upper extremities 5/5, bilateral lower extremities 4/5. Neurological: CN 2-12 intact. There are no obvious motor or sensory deficits. Movement and coordination equal and intact. Sensory exam to light touch intact C5-T1 and intact from L2-S1. Reflexes 2/4 in bilateral upper and lower extremities. Negative Hoffmans, babinski, and clonus signs. Psychiatric: Cooperative, appropriate mood & affect, normal judgment. - Labs CBC & Chem 7: 05/18/22 05:38 05/18/22 05:38 Labs: Abnormal Lab Results - Last 24 Hours (Table) 05/18/22 05/18/22 05/18/22 Range/Units 05:38 05:38 11:37 WBC 11.0 H (3.8-10.6) k/uL RBC 3.14 L (4.30-5.90) m/uL Hgb 9.8 L (13.0-17.5) gm/dL Hct 30.8 L (39.0-53.0) % Plt Count 137 L (150-450) k/uL Neutrophils # 9.2 H (1.3-7.7) k/uL Carbon Dioxide 18.9 L (20.0-27.5) mmol/L BUN 36.1 H (9.0-27.0) mg/dL Creatinine 1.9 H (0.6-1.5) mg/dL Est GFR (CKD-EPI)AfAm 42.2 L (60.0-200.0) Est GFR (CKD-EPI)NonAf 36.4 L (60.0-200.0) Glucose 184 H (70-110) mg/dL POC Glucose (mg/dL) 259 H (70-110) mg/dL Calcium 7.6 L (8.7-10.3) mg/dL 05/18/22 05/18/22 05/19/22 Range/Units 17:35 20:28 07:28 WBC (3.8-10.6) k/uL RBC (4.30-5.90) m/uL Hgb (13.0-17.5) gm/dL Hct (39.0-53.0) % Plt Count (150-450) k/uL Neutrophils # (1.3-7.7) k/uL Carbon Dioxide (20.0-27.5) mmol/L BUN (9.0-27.0) mg/dL Creatinine (0.6-1.5) mg/dL Est GFR (CKD-EPI)AfAm (60.0-200.0) Est GFR (CKD-EPI)NonAf (60.0-200.0) Glucose (70-110) mg/dL POC Glucose (mg/dL) 162 H 177 H 142 H (70-110) mg/dL Calcium (8.7-10.3) mg/dL Assessment and Plan Assessment: Postop day 4: L3 to S1 decompression and fusion Lumbar spondylosis with stenosis Bilateral lower extremity radiculopathy Plan: Plan: -Appreciate technical support consultant and team management. -Activity: Ambulate QID, OOB all meals, up and about, limit lifting bending twisting to less than 5 lbs. Use walker or cane if needed for stability. -Daily PT/OT, increase ambulation strength and balance. - LSO Brace when up and about, not needed in bed or chair -Pain control: Adequate at this time -Meds: reviewed -GI ppx: senna, Miralax -Maintain lucero catheter per medicine, consult placed for Urology. -DVT PPX: Heparin -Hygiene: Shower today. Maintain dressing clean and dry. Meticulous cleaning after BMs away from the incision site -Drains: Maintain for now. Continue to record output. -Encourage IS 10x/hr -Dispo: Anticipate discharge to [facility] within 24-48hrs *I reviewed and discussed this case with my attending Dr. Rodriguez, whom has reviewed this chart and films and is in agreement with assessment and plan of care as outlined above. I have personally seen and examined the patient, performed the documentation and the assessment and plan as written. Number of minutes spent on the visit: 15m.
[2022-05-19] MEDS: METOPROLOL TARTRATE 25 MG TAB PO SCH ×2 (08:20→20:09)
[2022-05-19] MEDS: SENNOSIDES 8.6 MG TAB PO SCH ×2 (08:20→20:08)
[2022-05-19] MEDS: HEPARIN SODIUM,PORCINE/PF 5,000 UNIT/0.5 ML SYRINGE SQ SCH ×2 (08:20→20:09)
[2022-05-19] MEDS: CYCLOBENZAPRINE 5 MG TAB PO SCH ×3 (08:20→21:41)
[2022-05-19] MEDS: GABAPENTIN 300 MG CAP PO SCH (08:20)
[2022-05-19] MEDS: FAMOTIDINE 20 MG TAB PO SCH (08:20)
[2022-05-19] MEDS: DAPAGLIFLOZIN PROPANEDIOL 10 MG TABLET PO SCH (08:21)
[2022-05-19] MEDS: ceFAZolin 3 GM in SODIUM CHLORIDE 0.9% 100 ML IVPB SCH ×3 (08:21→23:37)
--- NOTE | 2022-05-19 08:25 | XR ---
EXAMINATION TYPE: XR chest 1V portable DATE OF EXAM: 05/19/2022 6:53 AM COMPARISON: Chest radiographs from 05/17/2022. TECHNIQUE: XR chest 1V portable Portable AP radiograph of the chest. CLINICAL INDICATION:Male, 66 years old with history of chf; FINDINGS: Lungs/Pleura: Elevated left diaphragm similar prior. Low lung volumes are present. Blunting of the le ft costophrenic angle could be secondary to epicardial fat versus small pleural effusion. There is no evidence of focal consolidation, or pneumothorax. Pulmonary vascularity: Unremarkable. Heart/mediastinum: Cardiomediastinal silhouette is unremarkable. Musculoskeletal: No acute osseous pathology. IMPRESSION: Similar elevated left diaphragm with atelectasis possible left small pleural effusion with cardiomega ly.
[2022-05-19 10:14] LABS: Basophils # (A) 0.03 X 10*3/uL (0.00-0.10); Basophils % (A) 0.3 %; Eosinophils # (A) 0.27 X 10*3/uL (0.04-0.35); Eosinophils % (A) 2.6 %; HCT 29.1 % (39.6-50.0); HGB 8.9 g/dL (13.0-17.0); Immature Grans, Automated 0.3 %; Lymphocytes # (A) 1.38 X 10*3/uL (0.90-5.00); Lymphocytes % (A) 13.5 %; MCH 30.1 pg (27.0-32.0); MCHC 30.6 g/dL (32.0-37.0); MCV 98.3 fL (80.0-97.0); Mean Platelet Volume 9.9 fL (9.5-12.2); Monocytes # (A) 0.66 X 10*3/uL (0.20-1.00); Monocytes % (A) 6.4 %; NRBC Per 100 WBC 0 /100 WBCS (0.0-0.0); Neutrophils # (A) 7.88 X 10*3/uL (1.80-7.70); Neutrophils % (A) 76.9 %; Platelet Count 190 X 10*3/uL (140-440); RBC 2.96 X 10*6/uL (4.40-5.60); RDW 12.7 % (11.5-14.5); WBC 10.25 X 10*3/uL (4.50-10.00)
[2022-05-19 10:25] LABS: Albumin 3.2 g/dL (3.8-4.9); Albumin/Globulin Ratio 1.47 (1.60-3.17); Anion Gap 10.5 mmol/L (10.00-18.00); BUN/Creat Ratio 18.84 Ratio (12.00-20.00); Blood Urea Nitrogen 29.2 mg/dL (9.0-27.0); Calcium 7.7 mg/dL (8.7-10.3); Carbon Dioxide 23.2 mmol/L (20.0-27.5); Globulin 2.2 g/dL (1.6-3.3); Non-African American GFR(CKD) 46.6 (60.0-200.0); Potassium 4.4 mmol/L (3.5-5.5); Total Bilirubin 0.2 mg/dL (0.30-1.20); Total Protein 5.4 g/dL (6.2-8.2)
--- NOTE | 2022-05-19 10:31 | P.GSCN ---
History of Present Illness Consult date: 05/19/22 Reason for Consult: Urinary retention Requesting physician: Diamante Mott History of present illness: The patient is a 66-year-old male with a past medical history significant for asthma, hypothyroidism, diabetes mellitus, hypertension, and hyperlipidemia. On 05/15/22 he underwent a L3 to S1 decompression and fusion with Dr. Rodriguez. The patient has had significant urinary retention postoperatively and we have been consulted for that reason. Laboratory values were consistent with HUNG. Baseline serum creatinine 1.06, and it is now elevated to 1.9. The patient reports a history of having over 20 kidney stones in the past for which he saw Dr. Castro for. Only one of his stones required surgical intervention, the rest he passed spontaneously. No previous history of urinary retention, or other urological surgeries. Review of Systems - Constitutional Reports chronic pain - Cardiovascular Denies chest pain, Denies shortness of breath - Gastrointestinal Denies nausea, Denies vomiting - Genitourinary Denies dysuria, Denies flank pain, Denies urinary frequency, Denies urinary hesitancy - Musculoskeletal Reports low back pain Past Medical History Past Medical History: Asthma, Diabetes Mellitus, Hyperlipidemia, Hypertension, Thyroid Disorder Additional Past Medical History / Comment(s): No treatment for Asthma needed in many many years. Hx kidney stones. History of Any Multi-Drug Resistant Organisms: None Reported Past Surgical History: Hernia Repair Additional Past Surgical History / Comment(s): Surgery for perforated ulcer at 15 yrs of age. Past Anesthesia/Blood Transfusion Reactions: No Reported Reaction Additional Past Anesthesia/Blood Transfusion Reaction / Comm: "Severe Needle Phobia." Past Psychological History: No Psychological Hx Reported Smoking Status: Former smoker Past Alcohol Use History: Rare Additional Past Alcohol Use History / Comment(s): Smoked briefly in high school. Past Drug Use History: None Reported - Past Family History Mother Family Medical History: No Reported History Additional Family Medical History / Comment(s): Strong family hx of Akua's Disease. Medications and Allergies Home Medications Medication Instructions Recorded Confirmed Type Empagliflozin [Jardiance] 25 mg PO QAM 05/13/22 05/15/22 History Ezetimibe [Zetia] 10 mg PO HS 05/13/22 05/13/22 History Gabapentin 600 mg PO HS 05/13/22 05/13/22 History Gabapentin [Neurontin] 300 mg PO BID 05/13/22 05/15/22 History Levothyroxine Sodium 150 mcg PO QAM 05/13/22 05/13/22 History Metoprolol Tartrate 25 mg PO BID 05/13/22 05/13/22 History Rosuvastatin Calcium 10 mg PO HS 05/13/22 05/13/22 History Valsartan 320 mg PO QAM 05/13/22 05/13/22 History glipiZIDE 5 mg PO BID 05/13/22 05/15/22 History metFORMIN HCL 1,000 mg PO BID 05/13/22 05/13/22 History Allergies Allergy/AdvReac Type Severity Reaction Status Date / Time No Known Allergies Allergy Verified 05/15/22 05:58 Surgical - Exam Vital Signs Temp Pulse Resp BP Pulse Ox 98.2 F 94 18 161/75 94 L 05/15/22 06:05 05/15/22 06:05 05/15/22 06:05 05/15/22 06:05 05/15/22 06:05 General: Well developed, well nourished. No acute distress. HEENT: Head is atraumatic, normocephalic. Lungs: Respirations even and nonlabored. On 4L nc. Abdomen/GI: Soft. No guarding, rigidity, or abdominal tenderness. : No suprapubic tenderness. Rosales catheter draining clear yellow urine. Skin: Warm and dry Neurologic: Awake, alert and oriented times 3. CN II-XII grossly intact. No focal deficits. Psychiatric: Appropriate mood and affect. Results - Labs 05/19/22 07:29 05/19/22 07:29 Abnormal Lab Results - Last 24 Hours (Table) 05/18/22 05/18/22 05/18/22 Range/Units 05:38 05:38 11:37 WBC 11.0 H (3.8-10.6) k/uL RBC 3.14 L (4.30-5.90) m/uL Hgb 9.8 L (13.0-17.5) gm/dL Hct 30.8 L (39.0-53.0) % Plt Count 137 L (150-450) k/uL Neutrophils # 9.2 H (1.3-7.7) k/uL Carbon Dioxide 18.9 L (20.0-27.5) mmol/L BUN 36.1 H (9.0-27.0) mg/dL Creatinine 1.9 H (0.6-1.5) mg/dL Est GFR (CKD-EPI)AfAm 42.2 L (60.0-200.0) Est GFR (CKD-EPI)NonAf 36.4 L (60.0-200.0) Glucose 184 H (70-110) mg/dL POC Glucose (mg/dL) 259 H (70-110) mg/dL Calcium 7.6 L (8.7-10.3) mg/dL 05/18/22 05/18/22 05/19/22 Range/Units 17:35 20:28 07:28 WBC (3.8-10.6) k/uL RBC (4.30-5.90) m/uL Hgb (13.0-17.5) gm/dL Hct (39.0-53.0) % Plt Count (150-450) k/uL Neutrophils # (1.3-7.7) k/uL Carbon Dioxide (20.0-27.5) mmol/L BUN (9.0-27.0) mg/dL Creatinine (0.6-1.5) mg/dL Est GFR (CKD-EPI)AfAm (60.0-200.0) Est GFR (CKD-EPI)NonAf (60.0-200.0) Glucose (70-110) mg/dL POC Glucose (mg/dL) 162 H 177 H 142 H (70-110) mg/dL Calcium (8.7-10.3) mg/dL Diabetes panel 05/18/22 Range/Units 05:38 Sodium 135 (135-145) mmol/L Potassium 4.3 (3.5-5.5) mmol/L Chloride 103 (96-109) mmol/L Carbon Dioxide 18.9 L (20.0-27.5) mmol/L BUN 36.1 H (9.0-27.0) mg/dL Creatinine 1.9 H (0.6-1.5) mg/dL Glucose 184 H (70-110) mg/dL Calcium 7.6 L (8.7-10.3) mg/dL Calcium panel 05/18/22 Range/Units 05:38 Calcium 7.6 L (8.7-10.3) mg/dL Pituitary panel 05/18/22 Range/Units 05:38 Sodium 135 (135-145) mmol/L Potassium 4.3 (3.5-5.5) mmol/L Chloride 103 (96-109) mmol/L Carbon Dioxide 18.9 L (20.0-27.5) mmol/L BUN 36.1 H (9.0-27.0) mg/dL Creatinine 1.9 H (0.6-1.5) mg/dL Glucose 184 H (70-110) mg/dL Calcium 7.6 L (8.7-10.3) mg/dL Adrenal panel 05/18/22 Range/Units 05:38 Sodium 135 (135-145) mmol/L Potassium 4.3 (3.5-5.5) mmol/L Chloride 103 (96-109) mmol/L Carbon Dioxide 18.9 L (20.0-27.5) mmol/L BUN 36.1 H (9.0-27.0) mg/dL Creatinine 1.9 H (0.6-1.5) mg/dL Glucose 184 H (70-110) mg/dL Calcium 7.6 L (8.7-10.3) mg/dL Assessment and Plan Assessment: The patient was seen walking with physical therapy. He stated today was the first day he has been able to walk in the hallway. Afterward, he was sitting up in the chair and appeared comfortable. His is present. The patient stated that after his Rosales catheter was removed he did not feel the sensation to urinate. He was able to urinate 240 mL and 150 mL however, then was bladder scanned for 583 mL's and 823 mL's respectively. He was straight cathed twice and then a Rosales catheter was placed. He denies any loss of sensation, numbness, or tingling to his lower extremities. The patient states that he has not experience this problem after other surgeries. He denies any prostate i ssues. Normally he feels as if he empties his bladder completely and has a good stream. He does report occasional nocturia and hesitancy. |No frequency, urgency, hematuria, or dysuria. Urinary retention likely secondary to mild BPH and his recent surgery with anesthesia. The patient has been examined the chart has been reviewed. I concur with the above-mentioned consultation. Mata Kaur MD (1) Urinary retention Current Visit: Yes Status: Acute Code(s): R33.9 - RETENTION OF URINE, UNSPECIFIED SNOMED Code(s): 699763023 Plan: - Leave Rosales catheter in place until HUNG resolves - Monitor creatinine - Trial of void before discharge - Continue Flomax Thank you for this consultation. Please contact us if we could be of any further assistance. Impression and plan of care have been directed as dictated by the signing physician. Katty Angulo nurse practitioner acting as scribe for signing physician. Katty Angulo [facility] Palliative Care/Urology Spectralink [phone] Email: [email or web address]
--- NOTE | 2022-05-19 11:03 | P.NPCON ---
History of Present Illness - Reason for Consult acute renal failure - History of Present Illness Patient is a 66-year-old male who was admitted to the hospital for lumbar decompression and fusion of L2 through S1. Underlying history of type 2 diabetes, hypertension hyperlipidemia and nephrolithiasis. Patient had L4 to L5 and L5 to S1 in 20 this osteotomy and fusion of L3 to pelvis as well as bilateral laminectomy on 05/15/2022. Serum creatinine was elevated at 1.8 on 05/17/2022 which was up from 1.0 the day before. Patient was noted to have urine retention and a Rosales catheter was placed. He currently has good urine output and creatinine is down to 1.6 mg/dL from 1.9 yesterday Blood pressure had been low with systolic in the 90s on 05/17/2022 IV fluids were discontinued yesterday. Patient has been started on Flomax. Urine output at 4.4 L for last 24 hours. Review of Systems As per HPI, other systems negative Past Medical History Past Medical History: Asthma, Diabetes Mellitus, Hyperlipidemia, Hypertension, Thyroid Disorder Additional Past Medical History / Comment(s): No treatment for Asthma needed in many many years. Hx kidney stones. History of Any Multi-Drug Resistant Organisms: None Reported Past Surgical History: Hernia Repair Additional Past Surgical History / Comment(s): Surgery for perforated ulcer at 15 yrs of age. Past Anesthesia/Blood Transfusion Reactions: No Reported Reaction Additional Past Anesthesia/Blood Transfusion Reaction / Comment(s): "Severe Needle Phobia." Past Psychological History: No Psychological Hx Reported Smoking Status: Former smoker Past Alcohol Use History: Rare Additional Past Alcohol Use History / Comment(s): Smoked briefly in high school. Past Drug Use History: None Reported - Past Family History Mother Family Medical History: No Reported History Additional Family Medical History / Comment(s): Strong family hx of [place]on's Disease. Medications and Allergies Home Medications Medication Instructions Recorded Confirmed Type Empagliflozin [Jardiance] 25 mg PO QAM 05/13/22 05/15/22 History Ezetimibe [Zetia] 10 mg PO HS 05/13/22 05/13/22 History Gabapentin 600 mg PO HS 05/13/22 05/13/22 History Gabapentin [Neurontin] 300 mg PO BID 05/13/22 05/15/22 History Levothyroxine Sodium 150 mcg PO QAM 05/13/22 05/13/22 History Metoprolol Tartrate 25 mg PO BID 05/13/22 05/13/22 History Rosuvastatin Calcium 10 mg PO HS 05/13/22 05/13/22 History Valsartan 320 mg PO QAM 05/13/22 05/13/22 History glipiZIDE 5 mg PO BID 05/13/22 05/15/22 History metFORMIN HCL 1,000 mg PO BID 05/13/22 05/13/22 History Allergies Allergy/AdvReac Type Severity Reaction Status Date / Time No Known Allergies Allergy Verified 05/15/22 05:58 Physical Exam Vitals: Vital Signs Temp Pulse Pulse Pulse Resp BP Pulse Ox 05/19/22 08:06 104 H 05/19/22 07:54 116 H 05/19/22 07:21 98.4 F 109 H 16 148/80 99 05/19/22 02:00 99.6 F 105 H 16 117/62 93 L 05/18/22 21:21 106 H 05/18/22 21:10 104 H 05/18/22 20:00 97.9 F 115 H 16 115/55 96 05/18/22 16:47 110 H 97 05/18/22 13:04 99.4 F 51 L 18 114/70 92 L Intake and Output 05/18/22 05/19/22 05/19/22 22:59 06:59 14:59 Intake Total 590 Output Total 1600 1900 Balance -1600 -1310 Intake: Oral 590 Output: Drainage 100 Right Back 100 Urine 1600 1800 Other: Voiding Method Indwelling Catheter Patient is awake, comfortable, no acute distress Alert oriented 3 Examination of of the lungs shows bilateral breath sounds are heard Examination of the heart S1 and S2 Abdomen is soft nontender Examination of lower extremity shows no significant edema WHEEL BLOCKER exam is grossly intact Results - Lab Results Most recent lab results ABG pH 7.27 (7.35-7.45) L 05/15/22 14:35 ABG pCO2 34 mmHg (35-45) L 05/15/22 14:35 ABG pO2 187 mmHg (83-108) H 05/15/22 14:35 ABG HCO3 15 mmol/L (21-25) L 05/15/22 14:35 ABG O2 Saturation 99.3 % (94-97) H 05/15/22 14:35 Calcium 7.7 mg/dL (8.7-10.3) L 05/19/22 07:29 05/19/22 07:29 05/19/22 07:29 Assessment and Plan Assessment: 1. Acute kidney injury associated with hypotension and urine retention, currently improved. Patient has indwelling Rosales catheter 2. Status post lumbar decompression and fusion as 2 through S1 on 05/15/2022 3. Urine retention currently with indwelling Rosales catheter 4. Type 2 diabetes uncontrolled with hemoglobin A1c 8.4, maintained on farxiga and insulin Plan: Continue off of IV fluids Continue with Rosales catheter Repeat labs in a.m. Avoid nephrotoxic agents Decrease dose of Neurontin Consider holding farxiga if renal function does not continue to improve Thank you for the consultation. We will continue to follow the patient with you during his hospitalization
[2022-05-19 11:35] LABS: Glucose,Whole Blood 225 mg/dL (70-110)
[2022-05-19 12:08] LABS: Appearance,Urine Clear (Clear); Bilirubin,Urine Negative (Negative); Blood,Urine Moderate (Negative); Color,Urine Light Yellow; Glucose,Urine (UA) 4+ (Negative); Ketones,Urine Negative (Negative); Leukocyte Esterase,Urine Negative (Negative); Mucus,Urine Rare /hpf; Nitrite,Urine Negative (Negative); Protein,Urine 2+ (Negative); RBC,Urine <1 /hpf (0-5); Specific Gravity,Urine 1.016 (1.001-1.035); Urobilinogen,Urine <2.0 mg/dL (<2.0); WBC,Urine 2 /hpf (0-5)
[2022-05-19] MEDS: GABAPENTIN 100 MG CAP PO SCH ×2 (16:00→21:41)
[2022-05-19 17:28] LABS: Glucose,Whole Blood 201 mg/dL (70-110)
[2022-05-19] MEDS: TAMSULOSIN 0.4 MG CAP.ER.24H PO SCH (18:06)
[2022-05-19] MEDS: EZETIMIBE 10 MG TAB PO SCH (20:08)
[2022-05-19] MEDS: ATORVASTATIN 20 MG TAB PO SCH (20:09)
[2022-05-19 20:23] LABS: Glucose,Whole Blood 168 mg/dL (70-110)
[2022-05-19] MEDS: INSULIN DETEMIR (LEVEMIR) 100 UNIT/ML SYR SQ SCH (21:41)
[2022-05-20] MEDS: LEVOTHYROXINE 75 MCG TAB PO SCH (05:23)
[2022-05-20] MEDS: HYDROcodone/APAP 10-325MG 1 EACH TAB PO PRN ×2 (05:25→21:33)
[2022-05-20 07:44] LABS: Glucose,Whole Blood 189 mg/dL (70-110)
[2022-05-20] MEDS: IPRATROPIUM-ALBUTEROL 3 ML NEB INHALATION SCH ×4 (08:02→19:55)
--- NOTE | 2022-05-20 08:30 | P.PN ---
Subjective Progress Note Date: 05/20/22 Principal diagnosis: Lumbar spondylosis with stenosis BLE radiculopathy Patient seen and examined this morning. He is currently sitting up in chair. Surgical dressing is CDI, right hemovac is to gravity and patent. May remove drain this afternoon. Patient is more alert this morning. Lucero catheter remains patent with adequate output. He continues to deny any numbness or tingling to bilateral lower extremities. Patient to work with physical therapy today, possible ILA tomorrow. He denies any fever/chills, nausea/vomiting, or chest pain. Objective - Vital Signs Vital signs: Vital Signs Temp 98.5 F 05/20/22 02:14 Pulse 97 05/20/22 08:03 Resp 18 05/20/22 05:45 BP 122/61 05/20/22 02:14 Pulse Ox 98 05/20/22 08:03 FiO2 Intake & Output 05/19/22 05/20/22 05/20/22 18:59 06:59 18:59 Intake Total 310 900 Output Total 1335 1450 Balance -1025 -550 Intake: Intake, IV Titration 100 Amount ceFAZolin 3 gm In Sodium 100 Chloride 0.9% 100 ml @ 200 mls/hr IVPB Q8HR [facility] Rx#:[id number] Oral 800 Blood Product 310 Rc As-1 Unit 310 [id number] Output: Drainage 135 50 Right Back 135 50 Urine 1200 1400 Other: Voiding Method Indwelling Catheter Indwelling Catheter ABP, PAP, CO, CI - Last Documented Arterial Blood Pressure 107/54 - Exam Physical Examination General: The patient is awake and alert, in no acute distress Skin: Skin is warm and dry with no obvious rashes or lesions. Hairy patches absent, no dorsal skin dimples, no cafe au lait spots. Surgical incision to the lumbar spine with hemovac present on the right of the incision. Eye: Pupils are equal, round and reactive to light, extra-ocular movements are intact; there is normal conjunctiva bilaterally. Neck: The neck is supple, there is no tenderness and ROM intact. Cardiovascular: There is a regular rate and rhythm. No murmur, rub or gallop is appreciated. Respiratory: Lungs are clear to auscultation, respirations are non-labored, breath sounds are equal. Gastrointestinal: Soft, non-distended, non-tender abdomen. Back: There is no tenderness to palpation in the midline, paralumbar, parathoracic or buttocks region. There is no obvious deformity . Musculoskeletal: ROM limited secondary to pain and stiffness from surgical procedure. Muscle strength in all major muscle groups of bilateral upper extremities 5/5, bilateral lower extremities 4/5. Neurological: CN 2-12 intact. There are no obvious motor or sensory deficits. Movement and coordination equal and intact. Sensory exam to light touch intact C 5-T1 and intact from L2-S1. Reflexes 2/4 in bilateral upper and lower extremities. Negative Hoffmans, babinski, and clonus signs. Psychiatric: Cooperative, appropriate mood & affect, normal judgment. - Labs CBC & Chem 7: 05/19/22 07:29 05/19/22 07:29 Labs: Abnormal Lab Results - Last 24 Hours (Table) 05/19/22 05/19/22 05/19/22 Range/Units 07:29 07:29 11:15 WBC 10.25 H (4.50-10.00) X 10*3/uL RBC 2.96 L (4.40-5.60) X 10*6/uL Hgb 8.9 L (13.0-17.0) g/dL Hct 29.1 L (39.6-50.0) % MCV 98.3 H (80.0-97.0) fL MCHC 30.6 L (32.0-37.0) g/dL Neutrophils # 7.88 H (1.80-7.70) X 10*3/uL BUN 29.2 H (9.0-27.0) mg/dL Creatinine 1.6 H (0.6-1.5) mg/dL Est GFR (CKD-EPI)AfAm 54.0 L (60.0-200.0) Est GFR (CKD-EPI)NonAf 46.6 L (60.0-200.0) Glucose 148 H (70-110) mg/dL POC Glucose (mg/dL) (70-110) mg/dL Calcium 7.7 L (8.7-10.3) mg/dL Total Bilirubin 0.20 L (0.30-1.20) mg/dL AST 45 H (14-35) U/L Total Protein 5.4 L (6.2-8.2) g/dL Albumin 3.2 L (3.8-4.9) g/dL Albumin/Globulin Ratio 1.47 L (1.60-3.17) g/dL Urine Protein 2+ H (Negative) Urine Glucose (UA) 4+ H (Negative) Urine Blood Moderate H (Negative) Urine Mucus Rare H (None) /hpf Crossmatch 05/19/22 05/19/22 05/19/22 Range/Units 11:33 12:00 17:15 WBC (4.50-10.00) X 10*3/uL RBC (4.40-5.60) X 10*6/uL Hgb (13.0-17.0) g/dL Hct (39.6-50.0) % MCV (80.0-97.0) fL MCHC (32.0-37.0) g/dL Neutrophils # (1.80-7.70) X 10*3/uL BUN (9.0-27.0) mg/dL Creatinine (0.6-1.5) mg/dL Est GFR (CKD-EPI)AfAm (60.0-200.0) Est GFR (CKD-EPI)NonAf (60.0-200.0) Glucose (70-110) mg/dL POC Glucose (mg/dL) 225 H 201 H (70-110) mg/dL Calcium (8.7-10.3) mg/dL Total Bilirubin (0.30-1.20) mg/dL AST (14-35) U/L Total Protein (6.2-8.2) g/dL Albumin (3.8-4.9) g/dL Albumin/Globulin Ratio (1.60-3.17) g/dL Urine Protein (Negative) Urine Glucose (UA) (Negative) Urine Blood (Negative) Urine Mucus (None) /hpf Crossmatch See Detail 05/19/22 05/20/22 Range/Units 20:21 07:39 WBC (4.50-10.00) X 10*3/uL RBC (4.40-5.60) X 10*6/uL Hgb (13.0-17.0) g/dL Hct (39.6-50.0) % MCV (80.0-97.0) fL MCHC (32.0-37.0) g/dL Neutrophils # (1.80-7.70) X 10*3/uL BUN (9.0-27.0) mg/dL Creatinine (0.6-1.5) mg/dL Est GFR (CKD-EPI)AfAm (60.0-200.0) Est GFR (CKD-EPI)NonAf (60.0-200.0) Glucose (70-110) mg/dL POC Glucose (mg/dL) 168 H 189 H (70-110) mg/dL Calcium (8.7-10.3) mg/dL Total Bilirubin (0.30-1.20) mg/dL AST (14-35) U/L Total Protein (6.2-8.2) g/dL Albumin (3.8-4.9) g/dL Albumin/Globulin Ratio (1.60-3.17) g/dL Urine Protein (Negative) Urine Glucose (UA) (Negative) Urine Blood (Negative) Urine Mucus (None) /hpf Crossmatch Assessment and Plan Assessment: Postop day 5: L3 to S1 decompression and fusion Lumbar spondylosis with stenosis Bilateral lower extremity radiculopathy Plan: Plan: -Appreciate showroom consultant and team management. -Activity: Ambulate QID, OOB all meals, up and about, limit lifting bending twisting to less than 5 lbs. Use walker or cane if needed for stability. -Daily PT/OT, increase ambulation strength and balance. - LSO Brace when up and about, not needed in bed or chair -Pain control: Adequate at this time -Meds: reviewed -GI ppx: senna, Miralax -Maintain lucero catheter per medicine. -DVT PPX: Heparin -Hygiene: Shower today. Maintain dressing clean and dry. Meticulous cleaning after BMs away from the incision site -Drains: Maintain for now. Continue to record output. -Encourage IS 10x/hr -Dispo: Anticipate discharge to [facility] within 24hrs *I reviewed and discussed this case with my attending Dr. Rodriguez, whom has reviewed this chart and films and is in agreement with assessment and plan of care as outlined above. I have personally seen and examined the patient, performed the documentation and the assessment and plan as written. Number of minutes spent on the visit: 15m.
[2022-05-20] MEDS: INSULIN ASPART (NovoLOG) 100 UNIT/ML VIAL SQ SCH ×8 (10:15→21:33)
--- NOTE | 2022-05-20 10:15 | P.PN ---
Subjective Progress Note Date: 05/20/22 I am resuming care of patient on 05/20/2022 This is a 66-year-old male patient who presented to the hospital for planned lumbar decompression and fusion of L through S1 on 05/15/2022. Patient has past medical history of asthma, diabetes, hypertension, hyperlipidemia kidney stones. According to records patient did require ICU care after surgical procedure due to mid metabolic acidosis noted on ABGs. This was cracked and patient was transferred to medical floor the next day. Patient also had issues with acute kidney injury postoperative and urinary retention nephrology and neurology services are following. Fully catheter remains in place. Patient also received 1 unit PRBCs on 05/19/2021. On 05/20/2022 patient is alert and oriented 3. Patient is currently postop day 5. Laboratory currently pending. Nephrology and urology services are following. Rosales catheter remains in place. Discharge planning is in progress to subacute rehab. Per surgical services anticipate possible discharge in the next 24-48 hours. Current vital signs temp 98.3, pulse rate 100, respiratory rate 16, blood pressure 114/72 with a pulse ox of 95% on 2 L. Objective - Vital Signs Vital signs: Vital Signs Temp 98.3 F 05/20/22 07:35 Pulse 102 H 05/20/22 08:16 Resp 16 05/20/22 07:35 BP 114/72 05/20/22 07:35 Pulse Ox 98 05/20/22 08:03 FiO2 Intake & Output 05/19/22 05/20/22 05/20/22 18:59 06:59 18:59 Intake Total 310 900 Output Total 1335 1450 Balance -1025 -550 Intake: Intake, IV Titration 100 Amount ceFAZolin 3 gm In Sodium 100 Chloride 0.9% 100 ml @ 200 mls/hr IVPB Q8HR [facility] Rx#:[id number] Oral 800 Blood Product 310 Rc As-1 Unit 310 [id number] Output: Drainage 135 50 Right Back 135 50 Urine 1200 1400 Other: Voiding Method Indwelling Catheter Indwelling Catheter ABP, PAP, CO, CI - Last Documented Arterial Blood Pressure 107/54 - Exam Head normocephalic Neck supple Lungs clear to auscultation bilaterally no wheezing or crackles Heart regular rate and rhythm S1-S2, no rub or gallop Abdomen is soft nontender nondistended positive bowel sounds no hepa tosplenomegaly Extremities no edema Neuro alert and orientated to 3 - Labs CBC & Chem 7: 05/19/22 07:29 05/19/22 07:29 Labs: Abnormal Lab Results - Last 24 Hours (Table) 05/19/22 05/19/22 05/19/22 Range/Units 07:29 07:29 11:15 WBC 10.25 H (4.50-10.00) X 10*3/uL RBC 2.96 L (4.40-5.60) X 10*6/uL Hgb 8.9 L (13.0-17.0) g/dL Hct 29.1 L (39.6-50.0) % MCV 98.3 H (80.0-97.0) fL MCHC 30.6 L (32.0-37.0) g/dL Neutrophils # 7.88 H (1.80-7.70) X 10*3/uL BUN 29.2 H (9.0-27.0) mg/dL Creatinine 1.6 H (0.6-1.5) mg/dL Est GFR (CKD-EPI)AfAm 54.0 L (60.0-200.0) Est GFR (CKD-EPI)NonAf 46.6 L (60.0-200.0) Glucose 148 H (70-110) mg/dL POC Glucose (mg/dL) (70-110) mg/dL Calcium 7.7 L (8.7-10.3) mg/dL Total Bilirubin 0.20 L (0.30-1.20) mg/dL AST 45 H (14-35) U/L Total Protein 5.4 L (6.2-8.2) g/dL Albumin 3.2 L (3.8-4.9) g/dL Albumin/Globulin Ratio 1.47 L (1.60-3.17) g/dL Urine Protein 2+ H (Negative) Urine Glucose (UA) 4+ H (Negative) Urine Blood Moderate H (Negative) Urine Mucus Rare H (None) /hpf Crossmatch 05/19/22 05/19/22 05/19/22 Range/Units 11:33 12:00 17:15 WBC (4.50-10.00) X 10*3/uL RBC (4.40-5.60) X 10*6/uL Hgb (13.0-17.0) g/dL Hct (39.6-50.0) % MCV (80.0-97.0) fL MCHC (32.0-37.0) g/dL Neutrophils # (1.80-7.70) X 10*3/uL BUN (9.0-27.0) mg/dL Creatinine (0.6-1.5) mg/dL Est GFR (CKD-EPI)AfAm (60.0-200.0) Est GFR (CKD-EPI)NonAf (60.0-200.0) Glucose (70-110) mg/dL POC Glucose (mg/dL) 225 H 201 H (70-110) mg/dL Calcium (8.7-10.3) mg/dL Total Bilirubin (0.30-1.20) mg/dL AST (14-35) U/L Total Protein (6.2-8.2) g/dL Albumin (3.8-4.9) g/dL Albumin/Globulin Ratio (1.60-3.17) g/dL Urine Protein (Negative) Urine Glucose (UA) (Negative) Urine Blood (Negative) Urine Mucus (None) /hpf Crossmatch See Detail 05/19/22 05/20/22 Range/Units 20:21 07:39 WBC (4.50-10.00) X 10*3/uL RBC (4.40-5.60) X 10*6/uL Hgb (13.0-17.0) g/dL Hct (39.6-50.0) % MCV (80.0-97.0) fL MCHC (32.0-37.0) g/dL Neutrophils # (1.80-7.70) X 10*3/uL BUN (9.0-27.0) mg/dL Creatinine (0.6-1.5) mg/dL Est GFR (CKD-EPI)AfAm (60.0-200.0) Est GFR (CKD-EPI)NonAf (60.0-200.0) Glucose (70-110) mg/dL POC Glucose (mg/dL) 168 H 189 H (70-110) mg/dL Calcium (8.7-10.3) mg/dL Total Bilirubin (0.30-1.20) mg/dL AST (14-35) U/L Total Protein (6.2-8.2) g/dL Albumin (3.8-4.9) g/dL Albumin/Globulin Ratio (1.60-3.17) g/dL Urine Protein (Negative) Urine Glucose (UA) (Negative) Urine Blood (Negative) Urine Mucus (None) /hpf Crossmatch Assessment and Plan Assessment: 1. Status post lumbar depression and fusion of L2 to S1 on 05/15/2022 2. Acute kidney injury. Nephrology services are following 3. Urinary retention. Neurology services following. Indwelling catheter in place voiding trial to be attempted prior to discharge 4. Mild metabolic acidosis requiring ICU care this has resolved patient t ransferred out of ICU 5. History of essential hypertension 6. History of hyperlipidemia 7. History of diabetes mellitus type 2 8. History of hypothyroidism DVT prophylaxis heparin per surgical services Discharge planning is in place to subacute rehab
[2022-05-20] MEDS: CYCLOBENZAPRINE 5 MG TAB PO SCH ×3 (10:16→21:33)
[2022-05-20] MEDS: FAMOTIDINE 20 MG TAB PO SCH (10:16)
[2022-05-20] MEDS: GABAPENTIN 100 MG CAP PO SCH ×3 (10:16→21:33)
[2022-05-20] MEDS: DAPAGLIFLOZIN PROPANEDIOL 10 MG TABLET PO SCH (10:16)
[2022-05-20] MEDS: ceFAZolin 3 GM in SODIUM CHLORIDE 0.9% 100 ML IVPB SCH ×3 (10:18→23:14)
[2022-05-20] MEDS: METOPROLOL TARTRATE 25 MG TAB PO SCH ×2 (10:39→21:33)
[2022-05-20] MEDS: HEPARIN SODIUM,PORCINE/PF 5,000 UNIT/0.5 ML SYRINGE SQ SCH ×2 (10:39→21:33)
[2022-05-20] MEDS: SENNOSIDES 8.6 MG TAB PO SCH ×2 (10:40→21:33)
[2022-05-20 10:54] LABS: African American GFR (CKD) 61.1 (60.0-200.0); Anion Gap 10.2 mmol/L (10.00-18.00); BUN/Creat Ratio 19.86 Ratio (12.00-20.00); Blood Urea Nitrogen 27.8 mg/dL (9.0-27.0); Carbon Dioxide 21.8 mmol/L (20.0-27.5); Non-African American GFR(CKD) 52.7 (60.0-200.0); Potassium 4.5 mmol/L (3.5-5.5)
[2022-05-20 11:36] LABS: Basophils # (A) 0.02 X 10*3/uL (0.00-0.10); Basophils % (A) 0.2 %; Eosinophils # (A) 0.33 X 10*3/uL (0.04-0.35); Eosinophils % (A) 3.3 %; HCT 27.2 % (39.6-50.0); HGB 8.9 g/dL (13.0-17.0); Immature Grans, Automated 0.4 %; Lymphocytes # (A) 0.89 X 10*3/uL (0.90-5.00); MCH 30.1 pg (27.0-32.0); MCHC 32.7 g/dL (32.0-37.0); MCV 91.9 fL (80.0-97.0); Mean Platelet Volume 9.4 fL (9.5-12.2); Monocytes # (A) 0.68 X 10*3/uL (0.20-1.00); Monocytes % (A) 6.9 %; NRBC Per 100 WBC 0 /100 WBCS (0.0-0.0); Neutrophils % (A) 80.2 %; Platelet Count 219 X 10*3/uL (140-440); RBC 2.96 X 10*6/uL (4.40-5.60); WBC 9.86 X 10*3/uL (4.50-10.00)
[2022-05-20 11:39] LABS: Glucose,Whole Blood 225 mg/dL (70-110)
[2022-05-20] MEDS: HYDROcodone/APAP 5-325MG 1 EACH TAB PO PRN ×2 (11:48→16:27)
--- NOTE | 2022-05-20 13:00 | P.PN ---
Subjective Patient is seen for follow-up for acute kidney injury secondary to hypotension and urine retention, currently improving. Patient has an indwelling Rosales catheter. Serum creatinine is down to 1.4 from peak of 1.9 mg/dL 24 hour urine output documented at 4.4 L Complaining of pain. Objective - Vital Signs Vital signs: Vital Signs Temp 98.3 F 05/20/22 07:35 Pulse 110 H 05/20/22 12:12 Resp 16 05/20/22 07:35 BP 114/72 05/20/22 07:35 Pulse Ox 98 05/20/22 08:03 FiO2 Intake & Output 05/19/22 05/20/22 05/20/22 18:59 06:59 18:59 Intake Total 310 900 Output Total 1335 1450 700 Balance -1025 550 -700 Intake: Intake, IV Titration 100 Amount ceFAZolin 3 gm In Sodium 100 Chloride 0.9% 100 ml @ 200 mls/hr IVPB Q8HR ON LICENSE OF [facility] Rx#:[id number] Oral 800 Blood Product 310 Rc As-1 Unit 310 [id number] Output: Drainage 135 50 Right Back 135 50 Urine 1200 1400 700 Other: Voiding Method Indwelling Catheter Indwelling Catheter ABP, PAP, CO, CI - Last Documented Arterial Blood Pressure 107/54 - Exam Awake, uncomfortable from pain Alert oriented 3 Examination of the heart S1 and S2 Examination of the lungs bilateral breath sounds are heard Abdomen is soft nontender Examination of the lower extremities shows edema trace bilaterally CREPE MAKER exam grossly intact - Labs CBC & Chem 7: 05/20/22 07:20 05/20/22 07:20 Labs: Abnormal Lab Results - Last 24 Hours (Table) 05/19/22 05/19/22 05/19/22 Range/Units 12:00 17:15 20:21 RBC (4.40-5.60) X 10*6/uL Hgb (13.0-17.0) g/dL Hct (39.6-50.0) % MPV (9.5-12.2) fL Neutrophils # (1.80-7.70) X 10*3/uL Lymphocytes # (0.90-5.00) X 10*3/uL BUN (9.0-27.0) mg/dL Est GFR (CKD-EPI)NonAf (60.0-200.0) Glucose (70-110) mg/dL POC Glucose (mg/dL) 201 H 168 H (70-110) mg/dL Calcium (8.7-10.3) mg/dL Crossmatch See Detail 05/20/22 05/20/22 05/20/22 Range/Units 07:20 07:20 07:39 RBC 2.96 L (4.40-5.60) X 10*6/uL Hgb 8.9 L (13.0-17.0) g/dL Hct 27.2 L (39.6-50.0) % MPV 9.4 L (9.5-12.2) fL Neutrophils # 7.90 H (1.80-7.70) X 10*3/uL Lymphocytes # 0.89 L (0.90-5.00) X 10*3/uL BUN 27.8 H (9.0-27.0) mg/dL Est GFR (CKD-EPI)NonAf 52.7 L (60.0-200.0) Glucose 177 H (70-110) mg/dL POC Glucose (mg/dL) 189 H (70-110) mg/dL Calcium 8.0 L (8.7-10.3) mg/dL Crossmatch 05/20/22 Range/Units 11:36 RBC (4.40-5.60) X 10*6/uL Hgb (13.0-17.0) g/dL Hct (39.6-50.0) % MPV (9.5-12.2) fL Neutrophils # (1.80-7.70) X 10*3/uL Lymphocytes # (0.90-5.00) X 10*3/uL BUN (9.0-27.0) mg/dL Est GFR (CKD-EPI)NonAf (60.0-200.0) Glucose (70-110) mg/dL POC Glucose (mg/dL) 225 H (70-110) mg/dL Calcium (8.7-10.3) mg/dL Crossmatch Assessment and Plan Assessment: 1. Acute kidney injury associated with hypotension and urine retention, currently improved. Patient has indwelling Rosales catheter 2. Status post lumbar decompression and fusion L 2 through S1 on 05/15/2022 3. Urine retention currently with indwelling Rosales catheter 4. Type 2 diabetes uncontrolled with hemoglobin A1c 8.4, maintained on farxiga and insulin Plan: Continue with Rosales catheter Pain control Can increase Neurontin back to 300 mg if needed since renal function has improved.
[2022-05-20 17:33] LABS: Glucose,Whole Blood 111 mg/dL (70-110)
[2022-05-20] MEDS: TAMSULOSIN 0.4 MG CAP.ER.24H PO SCH (17:59)
[2022-05-20 20:53] LABS: Glucose,Whole Blood 125 mg/dL (70-110)
[2022-05-20] MEDS: EZETIMIBE 10 MG TAB PO SCH (21:33)
[2022-05-20] MEDS: ATORVASTATIN 20 MG TAB PO SCH (21:33)
[2022-05-20] MEDS: INSULIN DETEMIR (LEVEMIR) 100 UNIT/ML SYR SQ SCH (21:34)
[2022-05-20 23:26] LABS: % Iron Saturation 6.38 (15.00-50.00)
[2022-05-21] MEDS: HYDROcodone/APAP 5-325MG 1 EACH TAB PO PRN ×3 (02:00→13:22)
--- NOTE | 2022-05-21 06:00 | P.CONS ---
History of Present Illness - Chief Complaint Gait disturbance, lumbar stenosis - History of Present Illness I had the opportunity to see patient for inpatient rehab consultation today. Patient admitted to Dr. Rodriguez May 15 lumbar stenosis for elective fusion L2-S1. Seen in ICU by Dr. Eason. Seen by urology, Dr. Westbrook, for urinary retention which is new. Seen by Dr. Powell for acute kidney injury. Noted postoperative lumbar x-ray and lumbar CT were done. Chest x-ray demonstrates some elevation left hemidiaphragm with left pleural effusion versus atelectasis and some cardiomegaly. Has started therapy. PT reports moderate assistance for bed mobility minimal assistance to sit stand and for gait 175 feet total with roller walker. OT reports independent with feeding, supervision for grooming and upper dressing, maximal assistance for lower dressing and moderate assistance for bathing and toileting. Minimal assistance functional debility and transfer. home mission worker note indicates [place] his decline patient secondary to out of network for insurance. Previous functional history as elicited from patient: 66-year-old right-handed white male who is lives and 3 floor home with and daughter. DAUGHTER does be does laundry. All drive. Patient works full-time as a teacher. Otherwise independent with standing shower, gait without device. Denies tobacco and very rare drink. Review of Systems Review of systems: ENT: Denies sneezes or discharge. Eyes: Denies discharge or photophobia. Cardiac: Denies chest pain or palpitation. Pulmonary: Denies cough or shortness of breath. Gastrointestinal: Denies nausea, emesis, constipation, diarrhea. Genitourinary: Denies discharge or frequency. Musculoskeletal: Some back discomfort. Neurologic: Denies motor or sensory change. Endocrine: Denies shakes or sweats. Oncology: Denies cancers. Dermatologic: Denies rash, itching, pruritus. ALLERGY/immunology: Denies sneezes, rashes. Past Medical History Past Medical History: Asthma, Diabetes Mellitus, Hyperlipidemia, Hypertension, Thyroid Disorder Additional Past Medical History / Comment(s): No treatment for Asthma needed in many many years. Hx kidney stones. History of Any Multi-Drug Resistant Organisms: None Reported Past Surgical History: Hernia Repair Additional Past Surgical History / Comment(s): Surgery for perforated ulcer at 15 yrs of age. Past Anesthesia/Blood Transfusion Reactions: No Reported Reaction Additional Past Anesthesia/Blood Transfusion Reaction / Comm: "Severe Needle Phobia." Past Psychological History: No Psychological Hx Reported Smoking Status: Former smoker Past Alcohol Use History: Rare Additional Past Alcohol Use History / Comment(s): Smoked briefly in high school. Past Drug Use History: None Reported - Past Family History Mother Family Medical History: No Reported History Additional Family Medical History / Comment(s): Strong family hx of Akua's Disease. Medications and Allergies Home Medications Medication Instructions Recorded Confirmed Type Empagliflozin [Jardiance] 25 mg PO QAM 05/13/22 05/15/22 History Ezetimibe [Zetia] 10 mg PO HS 05/13/22 05/13/22 History Gabapentin 600 mg PO HS 05/13/22 05/13/22 History Gabapentin [Neurontin] 300 mg PO BID 05/13/22 05/15/22 History Levothyroxine Sodium 150 mcg PO QAM 05/13/22 05/13/22 History Metoprolol Tartrate 25 mg PO BID 05/13/22 05/13/22 History Rosuvastatin Calcium 10 mg PO HS 05/13/22 05/13/22 History Valsartan 320 mg PO QAM 05/13/22 05/13/22 History glipiZIDE 5 mg PO BID 05/13/22 05/15/22 History metFORMIN HCL 1,000 mg PO BID 05/13/22 05/13/22 History Allergies Allergy/AdvReac Type Severity Reaction Status Date / Time No Known Allergies Allergy Verified 05/15/22 05:58 Physical Exam Vitals: Vital Signs Temp Pulse Pulse Resp BP Pulse Ox 05/21/22 01:30 98.6 F 100 18 118/63 92 L 05/20/22 20:15 15 05/20/22 20:07 112 H 05/20/22 19:55 107 H 05/20/22 19:18 99.0 F 101 H 15 120/66 95 05/20/22 16:06 100 05/20/22 15:54 98 05/20/22 13:35 99 F 102 H 14 137/78 92 L 05/20/22 12:12 110 H 05/20/22 12:01 107 H 05/20/22 08:16 102 H 05/20/22 08:03 97 98 05/20/22 07:35 98.3 F 100 16 114/72 95 Intake and Output 05/20/22 05/20/22 05/21/22 14:59 22:59 06:59 Intake Total 200 Output Total 375 528 4358 Balance -700 -550 -1000 Intake: Intake, IV Titration 200 Amount ceFAZolin 3 gm In Sodium 200 Chloride 0.9% 100 ml @ 200 mls/hr IVPB Q8HR [facility] Rx#:[id number] Output: Urine 853 211 8151 Other: Voiding Method Indwelling Catheter Indwelling Catheter Skin: Good color, texture, turgor. General: Overweight build and comfortable appearance. Head: Normocephalic, atraumatic. Eyes: Symmetric. Pupils equal round. Ears: Symmetric. Hearing within normal limits. Mouth: Clear. Neck: Supple. Carotid without bruit. Cardiac: Regular rate and rhythm. Lungs: Clear anteriorly and posteriorly. Abdomen: Soft active nontender. Extremities: Normal tone. Back not examined. Neurological: Mental status: Alert, cooperative, pleasant. Cranial nerves: Symmetric facial tone and trapezius. Motor: Normal strength and isolation all 4 limbs. Sensation: Intact throughout. DTRs: Symmetric and equal throughout. Mobility: Did not attempt to sit or stand as early a.m. Results CBC & Chem 7: 05/20/22 07:20 05/20/22 07:20 Labs: Abnormal Lab Results - Last 24 Hours (Table) 05/20/22 05/20/22 05/20/22 Range/Units 07:20 07:20 07:39 RBC 2.96 L (4.40-5.60) X 10*6/uL Hgb 8.9 L (13.0-17.0) g/dL Hct 27.2 L (39.6-50.0) % MPV 9.4 L (9.5-12.2) fL Neutrophils # 7.90 H (1.80-7.70) X 10*3/uL Lymphocytes # 0.89 L (0.90-5.00) X 10*3/uL BUN 27.8 H (9.0-27.0) mg/dL Est GFR (CKD-EPI)NonAf 52.7 L (60.0-200.0) Glucose 177 H (70-110) mg/dL POC Glucose (mg/dL) 189 H (70-110) mg/dL Calcium 8.0 L (8.7-10.3) mg/dL Iron (65-175) ug/dL TIBC (228-460) ug/dL % Saturation (15.00-50.00) Transferrin (204.0-354.0) mg/dL 05/20/22 05/20/22 05/20/22 Range/Units 11:36 17:32 17:46 RBC (4.40-5.60) X 10*6/uL Hgb (13.0-17.0) g/dL Hct (39.6-50.0) % MPV (9.5-12.2) fL Neutrophils # (1.80-7.70) X 10*3/uL Lymphocytes # (0.90-5.00) X 10*3/uL BUN (9.0-27.0) mg/dL Est GFR (CKD-EPI)NonAf (60.0-200.0) Glucose (70-110) mg/dL POC Glucose (mg/dL) 225 H 111 H (70-110) mg/dL Calcium (8.7-10.3) mg/dL Iron 12 L (65-175) ug/dL TIBC 183 L (228-460) ug/dL % Saturation 6.38 L (15.00-50.00) Transferrin 131.0 L (204.0-354.0) mg/dL 05/20/22 Range/Units 20:51 RBC (4.40-5.60) X 10*6/uL Hgb (13.0-17.0) g/dL Hct (39.6-50.0) % MPV (9.5-12.2) fL Neutrophils # (1.80-7.70) X 10*3/uL Lymphocytes # (0.90-5.00) X 10*3/uL BUN (9.0-27.0) mg/dL Est GFR (CKD-EPI)NonAf (60.0-200.0) Glucose (70-110) mg/dL POC Glucose (mg/dL) 125 H (70-110) mg/dL Calcium (8.7-10.3) mg/dL Iron (65-175) ug/dL TIBC (228-460) ug/dL % Saturation (15.00-50.00) Transferrin (204.0-354.0) mg/dL Assessment and Plan (1) Urinary retention Current Visit: Yes Status: Acute Code(s): R33.9 - RETENTION OF URINE, UNSPECIFIED SNOMED Code(s): 008558792 Plan: Comments and plan: Diagnoses should include lumbar stenosis with bilateral radiculopathies and resultant gait disturbance. Therapies noted with some safety concerns and ability tolerate and benefit. Have discussed inpatient rehab with patient. At this time is preference is to return home and not require inpatient rehab though.
[2022-05-21] MEDS: LEVOTHYROXINE 75 MCG TAB PO SCH (06:03)
[2022-05-21 06:56] LABS: Glucose,Whole Blood 112 mg/dL (70-110)
[2022-05-21 07:41] VITALS: RESP 20
--- NOTE | 2022-05-21 07:43 | P.PN ---
Subjective Progress Note Date: 05/21/22 Principal diagnosis: Lumbar spondylosis with stenosis BLE radiculopathy Patient seen and examined this morning. Patient was assisted from bed to his chair with walker. Patient was shaky, standby assist. Dr. Coyle has assessed patient and is accepting patient for IPR pending auth. Surgical incision is well approximated with afsaneh, surgical dressing has been changed this morning. Lucero catheter remains patent with adequate output. He continues to deny any numbness or tingling to bilateral lower extremities. Patient to work with physical therapy today. Hoping to discharge today to rehab. He denies any fever/chills, nausea/vomiting, or chest pain. Objective - Vital Signs Vital signs: Vital Signs Temp 98.6 F 05/21/22 01:30 Pulse 100 05/21/22 01:30 Resp 18 05/21/22 01:30 BP 118/63 05/21/22 01:30 Pulse Ox 92 L 05/21/22 01:30 FiO2 Intake & Output 05/20/22 05/20/22 05/21/22 06:59 18:59 06:59 Intake Total 900 200 700 Output Total 1450 1450 1000 Balance -550 -1250 -300 Intake: Intake, IV Titration 100 200 100 Amount ceFAZolin 3 gm In Sodium 100 200 100 Chloride 0.9% 100 ml @ 200 mls/hr IVPB Q8HR [facility] Rx#:[id number] Oral 800 600 Output: Drainage 50 Right Back 50 Urine 1400 1450 1000 Other: Voiding Method Indwelling Catheter Indwelling Catheter Indwelling Catheter ABP, PAP, CO, CI - Last Documented Arterial Blood Pressure 107/54 - Exam Physical Examination General: The patient is awake and alert, in no acute distress Skin: Skin is warm and dry with no obvious rashes or lesions. Hairy patches absent, no dorsal skin dimples, no cafe au lait spots. Surgical incision to the lumbar spine, dressing CDI. Eye: Pupils are equal, round and reactive to light, extra-ocular movements are intact; there is normal conjunctiva bilaterally. Neck: The neck is supple, there is no tenderness and ROM intact. Cardiovascular: There is a regular rate and rhythm. No murmur, rub or gallop is appreciated. Respiratory: Lungs are clear to auscultation, respirations are non-labored, breath sounds are equal. Gastrointestinal: Soft, non-distended, non-tender abdomen. Back: There is no tenderness to palpation in the midline, paralumbar, parathoracic or buttocks region. There is no obvious deformity . Musculoskeletal: ROM limited secondary to pain and stiffness from surgical procedure. Muscle strength in all major muscle groups of bilateral upper extremities 5/5, bilateral lower extremities 4/5. Neurological: CN 2-12 intact. There are no obvious motor or sensory deficits. Movement and coordination equal and intact. Sensory exam to light touch intact C5-T1 and intact from L2-S1. Reflexes 2/4 in bilateral upper and lower extremities. Negative Hoffmans, babinski, and clonus signs. Psychiatric: Cooperative, appropriate mood & affect, normal judgment. - Labs CBC & Chem 7: 05/20/22 07:20 05/20/22 07:20 Labs: Abnormal Lab Results - Last 24 Hours (Table) 05/20/22 05/20/22 05/20/22 Range/Units 07:20 07:20 07:39 RBC 2.96 L (4.40-5.60) X 10*6/uL Hgb 8.9 L (13.0-17.0) g/dL Hct 27.2 L (39.6-50.0) % MPV 9.4 L (9.5-12.2) fL Neutrophils # 7.90 H (1.80-7.70) X 10*3/uL Lymphocytes # 0.89 L (0.90-5.00) X 10*3/uL BUN 27.8 H (9.0-27.0) mg/dL Est GFR (CKD-EPI)NonAf 52.7 L (60.0-200.0) Glucose 177 H (70-110) mg/dL POC Glucose (mg/dL) 189 H (70-110) mg/dL Calcium 8.0 L (8.7-10.3) mg/dL Iron (65-175) ug/dL TIBC (228-460) ug/dL % Saturation (15.00-50.00) Transferrin (204.0-354.0) mg/dL 05/20/22 05/20/22 05/20/22 Range/Units 11:36 17:32 17:46 RBC (4.40-5.60) X 10*6/uL Hgb (13.0-17.0) g/dL Hct (39.6-50.0) % MPV (9.5-12.2) fL Neutrophils # (1.80-7.70) X 10*3/uL Lymphocytes # (0.90-5.00) X 10*3/uL BUN (9.0-27.0) mg/dL Est GFR (CKD-EPI)NonAf (60.0-200.0) Glucose (70-110) mg/dL POC Glucose (mg/dL) 225 H 111 H (70-110) mg/dL Calcium (8.7-10.3) mg/dL Iron 12 L (65-175) ug/dL TIBC 183 L (228-460) ug/dL % Saturation 6.38 L (15.00-50.00) Transferrin 131.0 L (204.0-354.0) mg/dL 05/20/22 Range/Units 20:51 RBC (4.40-5.60) X 10*6/uL Hgb (13.0-17.0) g/dL Hct (39.6-50.0) % MPV (9.5-12.2) fL Neutrophils # (1.80-7.70) X 10*3/uL Lymphocytes # (0.90-5.00) X 10*3/uL BUN (9.0-27.0) mg/dL Est GFR (CKD-EPI)NonAf (60.0-200.0) Glucose (70-110) mg/dL POC Glucose (mg/dL) 125 H (70-110) mg/dL Calcium (8.7-10.3) mg/dL Iron (65-175) ug/dL TIBC (228-460) ug/dL % Saturation (15.00-50.00) Transferrin (204.0-354.0) mg/dL Assessment and Plan Assessment: Postop day 6: L3 to S1 decompression and fusion Lumbar spondylosis with stenosis Bilateral lower extremity radiculopathy Plan: Plan: -Appreciate peoplesoft consultant and team management. -Activity: Ambulate QID, OOB all meals, up and about, limit lifting bending twisting to less than 5 lbs. Use walker or cane if needed for stability. -Daily PT/OT, increase ambulation strength and balance. - LSO Brace when up and about, not needed in bed or chair -Pain control: Adequate at this time -Meds: reviewed -GI ppx: senna, Miralax -Maintain lucero catheter per medicine. -DVT PPX: Heparin -Hygiene: Shower today. Maintain dressing clean and dry. Meticulous cleaning after BMs away from the incision site -Encourage IS 10x/hr -Dispo: Anticipate discharge to [facility] when bed available *I reviewed and discussed this case with my attending Dr. Rodriguez, whom has reviewed this chart and films and is in agreement with assessment and plan of care as outlined above. I have personally seen and examined the patient, performed the documentation and the assessment and plan as written. Number of minutes spent on the visit: 15m.
[2022-05-21] MEDS: INSULIN ASPART (NovoLOG) 100 UNIT/ML VIAL SQ SCH ×5 (08:21→18:21)
[2022-05-21] MEDS: ceFAZolin 3 GM in SODIUM CHLORIDE 0.9% 100 ML IVPB SCH ×2 (08:22→16:38)
[2022-05-21] MEDS: CYCLOBENZAPRINE 5 MG TAB PO SCH ×2 (08:28→16:38)
[2022-05-21] MEDS: GABAPENTIN 100 MG CAP PO SCH ×2 (08:28→16:38)
[2022-05-21] MEDS: DAPAGLIFLOZIN PROPANEDIOL 10 MG TABLET PO SCH (08:28)
[2022-05-21] MEDS: FAMOTIDINE 20 MG TAB PO SCH (08:28)
[2022-05-21] MEDS: SENNOSIDES 8.6 MG TAB PO SCH (08:29)
[2022-05-21] MEDS: HEPARIN SODIUM,PORCINE/PF 5,000 UNIT/0.5 ML SYRINGE SQ SCH (08:29)
[2022-05-21] MEDS: METOPROLOL TARTRATE 25 MG TAB PO SCH (08:29)
[2022-05-21] MEDS: IPRATROPIUM-ALBUTEROL 3 ML NEB INHALATION SCH ×3 (08:41→15:37)
--- NOTE | 2022-05-21 08:53 | P.PN ---
Progress Note - Text Progress Note Date: 05/21/22 The patient is a 66-year-old male with a past medical history significant for asthma, hypothyroidism, diabetes mellitus, hypertension, and hyperlipidemia. On 05/15/22 he underwent a L3 to S1 decompression and fusion with Dr. Rodriguez. The patient has had significant urinary retention postoperatively and we have been consulted for that reason. Laboratory values were consistent with HUNG. Serum creatinine has been trending down and was 1.4 yesterday. Flomax was started on 05/17. His Rosales catheter is draining clear yellow urine. His Rosales catheter may be removed for voiding trial. - Remove Rosales catheter - Continue Flomax - Obtain PVR Impression and plan of care have been directed as dictated by the signing physician. Katty Angulo nurse practitioner acting as scribe for signing physician. Katty Angulo [facility] [id number] Email: [email or web address] The patient has been reviewed. I concur with the above-mentioned note. We'll see how he voids. Mata Kaur M.D.
--- NOTE | 2022-05-21 10:30 | P.PN ---
Subjective Progress Note Date: 05/21/22 I am resuming care of patient on 05/20/2022 This is a 66-year-old male patient who presented to the hospital for planned lumbar decompression and fusion of L through S1 on 05/15/2022. Patient has past medical history of asthma, diabetes, hypertension, hyperlipidemia kidney stones. According to records patient did require ICU care after surgical procedure due to mid metabolic acidosis noted on ABGs. This was cracked and patient was transferred to medical floor the next day. Patient also had issues with acute kidney injury postoperative and urinary retention nephrology and neurology services are following. Fully catheter remains in place. Patient also received 1 unit PRBCs on 05/19/2021. On 05/20/2022 patient is alert and oriented 3. Patient is currently postop day 5. Laboratory currently pending. Nephrology and urology services are following. Rosales catheter remains in place. Discharge planning is in progress to subacute rehab. Per surgical services anticipate possible discharge in the next 24-48 hours. Current vital signs temp 98.3, pulse rate 100, respiratory rate 16, blood pressure 114/72 with a pulse ox of 95% on 2 L. On 05/21/2022 3 patient alert and oriented 3 currently postop day 6. Patient is currently sitting up in chair. Discharge planning is in place to possible inpatient rehab versus subacute rehab. Patient denies chest pain or shortness of breath. Patient denies nausea vomiting or diarrhea. Patient denies any urinary burning or frequency Objective - Vital Signs Vital signs: Vital Signs Temp 98.3 F 05/21/22 07:39 Pulse 103 H 05/21/22 08:56 Resp 20 05/21/22 07:39 BP 137/77 05/21/22 07:39 Pulse Ox 96 05/21/22 08:44 FiO2 Intake & Output 05/20/22 05/21/22 05/21/22 18:59 06:59 18:59 Intake Total 200 700 Output Total 1450 1000 300 Balance -1250 -300 -300 Intake: Intake, IV Titration 200 100 Amount ceFAZolin 3 gm In Sodium 200 100 Chloride 0.9% 100 ml @ 200 mls/hr IVPB Q8HR [facility]END[facility] S[facility] TO [facility] Rx#:[id number] Oral 600 Output: Urine 1450 1000 300 Uretheral (Rosales) 300 Other: Voiding Method Indwelling Catheter Indwelling Catheter Indwelling Catheter ABP, PAP, CO, CI - Last Documented Arterial Blood Pressure 107/54 - Exam Head normocephalic Neck supple Lungs clear to auscultation bilaterally no wheezing or crackles Heart regular rate and rhythm S1-S2, no rub or gallop Abdomen is soft nontender nondistended positive bowel sounds no hepatosplenomeg farzana Extremities no edema Neuro alert and orientated to 3 - Labs CBC & Chem 7: 05/20/22 07:20 05/20/22 07:20 Labs: Abnormal Lab Results - Last 24 Hours (Table) 05/20/22 05/20/22 05/20/22 Range/Units 07:20 07:20 11:36 RBC 2.96 L (4.40-5.60) X 10*6/uL Hgb 8.9 L (13.0-17.0) g/dL Hct 27.2 L (39.6-50.0) % MPV 9.4 L (9.5-12.2) fL Neutrophils # 7.90 H (1.80-7.70) X 10*3/uL Lymphocytes # 0.89 L (0.90-5.00) X 10*3/uL BUN 27.8 H (9.0-27.0) mg/dL Est GFR (CKD-EPI)NonAf 52.7 L (60.0-200.0) Glucose 177 H (70-110) mg/dL POC Glucose (mg/dL) 225 H (70-110) mg/dL Calcium 8.0 L (8.7-10.3) mg/dL Iron (65-175) ug/dL TIBC (228-460) ug/dL % Saturation (15.00-50.00) Transferrin (204.0-354.0) mg/dL 05/20/22 05/20/22 05/20/22 Range/Units 17:32 17:46 20:51 RBC (4.40-5.60) X 10*6/uL Hgb (13.0-17.0) g/dL Hct (39.6-50.0) % MPV (9.5-12.2) fL Neutrophils # (1.80-7.70) X 10*3/uL Lymphocytes # (0.90-5.00) X 10*3/uL BUN (9.0-27.0) mg/dL Est GFR (CKD-EPI)NonAf (60.0-200.0) Glucose (70-110) mg/dL POC Glucose (mg/dL) 111 H 125 H (70-110) mg/dL Calcium (8.7-10.3) mg/dL Iron 12 L (65-175) ug/dL TIBC 183 L (228-460) ug/dL % Saturation 6.38 L (15.00-50.00) Transferrin 131.0 L (204.0-354.0) mg/dL 05/21/22 Range/Units 06:53 RBC (4.40-5.60) X 10*6/uL Hgb (13.0-17.0) g/dL Hct (39.6-50.0) % MPV (9.5-12.2) fL Neutrophils # (1.80-7.70) X 10*3/uL Lymphocytes # (0.90-5.00) X 10*3/uL BUN (9.0-27.0) mg/dL Est GFR (CKD-EPI)NonAf (60.0-200.0) Glucose (70-110) mg/dL POC Glucose (mg/dL) 112 H (70-110) mg/dL Calcium (8.7-10.3) mg/dL Iron (65-175) ug/dL TIBC (228-460) ug/dL % Saturation (15.00-50.00) Transferrin (204.0-354.0) mg/dL Assessment and Plan Assessment: 1. Status post lumbar depression and fusion of L2 to S1 on 05/15/2022 2. Acute kidney injury. Nephrology services are following 3. Urinary retention. Neurology services following. Indwelling catheter in place voiding trial to be attempted prior to discharge 4. Mild metabolic acidosis requiring ICU care this has resolved patient transferred out of ICU 5. History of essential hypertension 6. History of hyperlipidemia 7. History of diabetes mellitus type 2 8. History of hypothyroidism DVT prophylaxis heparin per surgical services Discharge planning is in place to subacute rehab versus inpatient rehab
[2022-05-21 11:06] LABS: Basophils # (A) 0.02 X 10*3/uL (0.00-0.10); Basophils % (A) 0.2 %; Eosinophils # (A) 0.32 X 10*3/uL (0.04-0.35); Eosinophils % (A) 3.6 %; HCT 28.8 % (39.6-50.0); HGB 9.2 g/dL (13.0-17.0); Immature Grans, Automated 0.6 %; Lymphocytes # (A) 1.13 X 10*3/uL (0.90-5.00); Lymphocytes % (A) 12.8 %; MCH 29.9 pg (27.0-32.0); MCHC 31.9 g/dL (32.0-37.0); MCV 93.5 fL (80.0-97.0); Mean Platelet Volume 9.5 fL (9.5-12.2); Monocytes # (A) 0.67 X 10*3/uL (0.20-1.00); Monocytes % (A) 7.6 %; NRBC Per 100 WBC 0 /100 WBCS (0.0-0.0); Neutrophils # (A) 6.66 X 10*3/uL (1.80-7.70); Neutrophils % (A) 75.2 %; Platelet Count 265 X 10*3/uL (140-440); RBC 3.08 X 10*6/uL (4.40-5.60); WBC 8.85 X 10*3/uL (4.50-10.00)
[2022-05-21 11:24] LABS: ALT 15 U/L (10-49); AST 33 U/L (14-35); African American GFR (CKD) 74.4 (60.0-200.0); Albumin 3.3 g/dL (3.8-4.9); Albumin/Globulin Ratio 1.41 (1.60-3.17); Alkaline Phosphatase 91 U/L (41-126); BUN/Creat Ratio 20.59 Ratio (12.00-20.00); Blood Urea Nitrogen 24.5 mg/dL (9.0-27.0); Calcium 8.2 mg/dL (8.7-10.3); Carbon Dioxide 24.2 mmol/L (20.0-27.5); Chloride 105 mmol/L (96-109); Globulin 2.3 g/dL (1.6-3.3); Glucose 94 mg/dL (70-110); Non-African American GFR(CKD) 64.2 (60.0-200.0); Potassium 4.7 mmol/L (3.5-5.5); Sodium 138 mmol/L (135-145); Total Bilirubin <0.15 mg/dL (0.30-1.20); Total Protein 5.6 g/dL (6.2-8.2)
[2022-05-21 12:16] LABS: Glucose,Whole Blood 146 mg/dL (70-110)
[2022-05-21 12:40] VITALS: BP 133/81; TEMP 98
[2022-05-21 14:40] LABS: Glucose,Whole Blood 188 mg/dL (70-110)
--- NOTE | 2022-05-21 15:02 | P.PN ---
Subjective Patient is seen for follow-up for acute kidney injury secondary to hypotension and urine retention, currently improving. Patient has an indwelling Rosales catheter. Serum creatinine is down to 1.4 from peak of 1.9 mg/dL 24 hour urine output documented at 2.6 L Pain is better controlled today. Serum creatinine down to 1.2 Objective - Vital Signs Vital signs: Vital Signs Temp 98 F 05/21/22 12:40 Pulse 82 05/21/22 12:40 Resp 20 05/21/22 12:40 BP 133/81 05/21/22 12:40 Pulse Ox 93 L 05/21/22 12:40 FiO2 Intake & Output 05/20/22 05/21/22 05/21/22 18:59 06:59 18:59 Intake Total 200 700 Output Total 1450 1000 550 Balance -1250 -300 -550 Intake: Intake, IV Titration 200 100 Amount ceFAZolin 3 gm In Sodium 200 100 Chloride 0.9% 100 ml @ 200 mls/hr IVPB Q8HR [facility] Rx#:[id number] Oral 600 Output: Urine 1450 1000 550 Uretheral (Rosales) 550 Other: Voiding Method Indwelling Catheter Indwelling Catheter Indwelling Catheter ABP, PAP, CO, CI - Last Documented Arterial Blood Pressure 107/54 - Exam Awake, uncomfortable from pain Alert oriented 3 Examination of the heart S1 and S2 Examination of the lungs bilateral breath sounds are heard Abdomen is soft nontender Examination of the lower extremities shows edema trace bilaterally [employer] exam grossly intact - Labs CBC & Chem 7: 05/21/22 07:27 05/21/22 07:27 Labs: Abnormal Lab Results - Last 24 Hours (Table) 05/20/22 05/20/22 05/20/22 Range/Units 17:32 17:46 20:51 RBC (4.40-5.60) X 10*6/uL Hgb (13.0-17.0) g/dL Hct (39.6-50.0) % MCHC (32.0-37.0) g/dL Immature Gran # (0.00-0.04) X 10*3/uL Anion Gap (10.00-18.00) mmol/L BUN/Creatinine Ratio (12.00-20.00) Ratio POC Glucose (mg/dL) 111 H 125 H (70-110) mg/dL Calcium (8.7-10.3) mg/dL Iron 12 L (65-175) ug/dL TIBC 183 L (228-460) ug/dL % Saturation 6.38 L (15.00-50.00) Transferrin 131.0 L (204.0-354.0) mg/dL Total Bilirubin (0.30-1.20) mg/dL Total Protein (6.2-8.2) g/dL Albumin (3.8-4.9) g/dL Albumin/Globulin Ratio (1.60-3.17) g/dL 05/21/22 05/21/22 05/21/22 Range/Units 06:53 07:27 07:27 RBC 3.08 L (4.40-5.60) X 10*6/uL Hgb 9.2 L (13.0-17.0) g/dL Hct 28.8 L (39.6-50.0) % MCHC 31.9 L (32.0-37.0) g/dL Immature Gran # 0.05 H (0.00-0.04) X 10*3/uL Anion Gap 8.60 L (10.00-18.00) mmol/L BUN/Creatinine Ratio 20.59 H (12.00-20.00) Ratio POC Glucose (mg/dL) 112 H (70-110) mg/dL Calcium 8.2 L (8.7-10.3) mg/dL Iron (65-175) ug/dL TIBC (228-460) ug/dL % Saturation (15.00-50.00) Transferrin (204.0-354.0) mg/dL Total Bilirubin <0.15 L (0.30-1.20) mg/dL Total Protein 5.6 L (6.2-8.2) g/dL Albumin 3.3 L (3.8-4.9) g/dL Albumin/Globulin Ratio 1.41 L (1.60-3.17) g/dL 05/21/22 05/21/22 Range/Units 12:14 14:25 RBC (4.40-5.60) X 10*6/uL Hgb (13.0-17.0) g/dL Hct (39.6-50.0) % MCHC (32.0-37.0) g/dL Immature Gran # (0.00-0.04) X 10*3/uL Anion Gap (10.00-18.00) mmol/L BUN/Creatinine Ratio (12.00-20.00) Ratio POC Glucose (mg/dL) 146 H 188 H (70-110) mg/dL Calcium (8.7-10.3) mg/dL Iron (65-175) ug/dL TIBC (228-460) ug/dL % Saturation (15.00-50.00) Transferrin (204.0-354.0) mg/dL Total Bilirubin (0.30-1.20) mg/dL Total Protein (6.2-8.2) g/dL Albumin (3.8-4.9) g/dL Albumin/Globulin Ratio (1.60-3.17) g/dL Assessment and Plan Assessment: 1. Acute kidney injury associated with hypotension and urine retention, currently improved. Patient has indwelling Rosales catheter 2. Status post lumbar decompression and fusion L 2 through S1 on 05/15/2022 3. Urine retention currently with indwelling Rosales catheter 4. Type 2 diabetes uncontrolled with hemoglobin A1c 8.4, maintained on farxiga and insulin Plan: Continue with Rosales catheter Pain control Can increase Neurontin back to 300 mg if needed since renal function has improved. Continue with Flomax
[2022-05-21 15:48] VITALS: PULSE 106
--- NOTE | 2022-05-21 15:59 | P.DS ---
Providers Date of admission: 05/15/22 05:33 Expected date of discharge: 05/21/22 Attending physician: Geo Rodriguez DO Consults: 05/15/22 15:47 Consult Physician Routine Consulting Provider: Karlo Traore Consult Reason/Comments: Medical Management Do you want consulting provider notified?: Yes 05/15/22 15:48 Consult Physician Routine Consulting Provider: Aniceto Snoi Consult Reason/Comments: Intensive care management Do you want consulting provider notified?: Yes 05/18/22 14:10 Consult Physician Urgent Consulting Provider: Maria Isabel Powell Consult Reason/Comments: HUNG, post lumbar fusion Do you want consulting provider notified?: Yes 05/19/22 08:01 Consult Physician Routine Consulting Provider: Wai Mosher Consult Reason/Comments: Urinary retention Do you want consulting provider notified?: Yes 05/20/22 13:45 Consult Physician Routine Consulting Provider: Ezequiel Coyle Consult Reason/Comments: Inpatient rehab Do you want consulting provider notified?: Yes Primary care physician: Karlo Traore [facility] Course: Hospital Course: The patient was evaluated preoperatively and found to have the diagnosis of l umbar spondylosis with stenosis and bilateral lower extremity radiculopathy. They underwent appropriate preoperative care and were willing to undergo the intended procedure. They underwent a successful L3-S1 decompression and fusion, were recovered appropriately and sent to the floor. While on the floor they worked with physical therapy, occupational therapy and nursing to enhance their recovery experience. Their pain was well controlled through their stay and they were started on appropriate medications, DVT ppx modalities, activity and dietary needs. Daily labs were monitored closely, and transfusions were only used when necessary. Medicine as well as other consulting services have made their input and have helped with our team approach and multidisciplinary care. PT milestones have been met and passed and they have made the recommendation of inpatient rehab for this patient and treating providers agree with this care path. The patient will be discharged home with appropriate medications, instructions and follow-up information and in stable condition. Patient Condition at Discharge: Good Plan - Discharge Summary Discharge Rx Participant: Yes New Discharge Prescriptions: New Hydrocodone/Acetaminophen [[place] 2.5-325] 1 tab PO Q4H PRN #56 tab PRN Reason: Pain Ipratropium-Albuterol Nebulize [Duoneb 0.5 mg-3 mg/3 ml Soln] 3 ml INHALATION RT-QID each INSULIN ASPART (NovoLOG) [NovoLOG (formulary)] 6 unit SQ AC-TID each cefaDROXiL [Duricef] 500 mg PO Q12HR 5 Days #10 cap Cyclobenzaprine [Flexeril] 5 mg PO HS PRN #30 tab PRN Reason: Muscle Spasm Gabapentin [Neurontin] 200 mg PO TID #180 cap Sennosides/Docusate Sodium [Senna Plus 8.6-50 mg Tablet] 1 each PO DAILY PRN #20 tab PRN Reason: Constipation Acetaminophen [Tylenol Extra Strength] 1,000 mg PO BID PRN #60 tablet PRN Reason: Pain Tamsulosin [Flomax] 0.4 mg PO PC-SUPPER 30 Days #30 cap Heparin Sodium,Porcine [Heparin Sodium] 5,000 unit SQ Q12HR #60 each Insulin Detemir (Levemir) [Levemir] 30 unit SQ HS each INSULIN ASPART (NovoLOG) [NovoLOG (formulary)] 0 unit SQ ACHS each Continue Ezetimibe [Zetia] 10 mg PO HS Rosuvastatin Calcium 10 mg PO HS glipiZIDE 5 mg PO BID Gabapentin [Neurontin] 300 mg PO BID Metoprolol Tartrate 25 mg PO BID metFORMIN HCL 1,000 mg PO BID Valsartan 320 mg PO QAM Levothyroxine Sodium 150 mcg PO QAM Empagliflozin [Jardiance] 25 mg PO QAM Discontinued Gabapentin 600 mg PO HS Discharge Medication List Empagliflozin [Jardiance] 25 mg PO QAM 05/13/22 [History] Ezetimibe [Zetia] 10 mg PO HS 05/13/22 [History] Gabapentin [Neurontin] 300 mg PO BID 05/13/22 [History] Levothyroxine Sodium 150 mcg PO QAM 05/13/22 [History] Metoprolol Tartrate 25 mg PO BID 05/13/22 [History] Rosuvastatin Calcium 10 mg PO HS 05/13/22 [History] Valsartan 320 mg PO QAM 05/13/22 [History] glipiZIDE 5 mg PO BID 05/13/22 [History] metFORMIN HCL 1,000 mg PO BID 05/13/22 [History] Acetaminophen [Tylenol Extra Strength] 1,000 mg PO BID PRN #60 tablet 05/21/22 [Rx] Cyclobenzaprine [Flexeril] 5 mg PO HS PRN #30 tab 05/21/22 [Rx] Gabapentin [Neurontin] 200 mg PO TID #180 cap 05/21/22 [Rx] Heparin Sodium,Porcine [Heparin Sodium] 5,000 unit SQ Q12HR #60 each 05/21/22 [Rx] Hydrocodone/Acetaminophen [[place] 2.5-325] 1 tab PO Q4H PRN #56 tab 05/21/22 [Rx] INSULIN ASPART (NovoLOG) [NovoLOG (formulary)] 0 unit SQ ACHS each 05/21/22 [Rx] INSULIN ASPART (NovoLOG) [NovoLOG (formulary)] 6 unit SQ AC-TID each 05/21/22 [Rx] Insulin Detemir (Levemir) [Levemir] 30 unit SQ HS each 05/21/22 [Rx] Ipratropium-Albuterol Nebulize [Duoneb 0.5 mg-3 mg/3 ml Soln] 3 ml INHALATION RT-QID each 05/21/22 [Rx] Sennosides/Docusate Sodium [Senna Plus 8.6-50 mg Tablet] 1 each PO DAILY PRN #20 tab 05/21/22 [Rx] Tamsulosin [Flomax] 0.4 mg PO PC-SUPPER 30 Days #30 cap 05/21/22 [Rx] cefaDROXiL [Duricef] 500 mg PO Q12HR 5 Days #10 cap 05/21/22 [Rx] Follow up Appointment(s)/Referral(s): Geo Rodriguez DO [Doctor of Osteopathic Medicine] - 2 Weeks Karlo Traore MD [Primary Care Provider] - 1 Week Mata Kaur MD [STAFF PHYSICIAN] - 1 Week Activity/Diet/Wound Care/Special Instructions: Spine Discharge and Recovery Instructions Date of Surgery: 05/15/2022 Diagnosis: Lumbar spondylosis with stenosis, bilateral lower extremity radiculopathy Procedure: L3-S1 decompression and fusion Medications: See medication list All medication refills should be obtained through your primary care doctor or your clinic spine surgeon. Please discuss prescription refills at your follow up appointment. Do not call the hospital for medication refills. Dressing: Leave your dressing in place for a total of 5 days post operatively. Then you may remove your dressing and leave open to air. Keep the area clean and if not able to keep area clean, then cover with sterile gauze and tape. Showering: You may shower 3 days after your procedure allowing soap and water to run over incision. Do not scrub. Do not soak. Blot dry. Follow up: Please confirm a follow up appointment with your surgeon 3 weeks post operatively. Please make an appointment to follow up with your PCP in 1-2 weeks after surgery for evaluation 3 phase, 3-week plan POST OP WEEKS 1-3 1. Lifting/carrying/pushing/pulling limited to less than 5 pounds. 2. Do not sit for longer than 15 minutes at one time. Get up and walk around. Prolonged sitting is NOT advised. If you lay down, see if you can tolerate laying down on you front (belly side) 3. Walk for periods of 15 minutes = 1 mile but no longer; do it multiple times times each day. 4. Ice your low back after activity. POST OP WEEKS 3-6 1. Lifting limited to less than 20 pounds. 2. Do not sit for longer than 30 minutes at a time. Frequently change positions. Use a sit-to stand workstation or take frequent breaks from sitting if you have returned to work. 3. Walk for 30 minutes each day. If possible, do these three or more times a day POST OP WEEKS 6+ At your 6-week appointment we will give you a physical therapy referral to focus on a core stabilization and strengthening program. You should also work on leg & buttock strengthening, hamstring & quadriceps stretching, and continue a low impact aerobic activity program such as swimming, walking, or riding a stationary bicycle. During the initial 6 weeks after your surgery, you are at the highest risk of re-injuring your spine. You should generally avoid BLTs (bending, lifting and twisting combination motions) and follow the above guidelines to reduce the chance of reinjury. You can anticipate post op appointments in our office at approximately 3 weeks and 6 weeks after your surgery. INCISION CARE: If your incision is not draining you do NOT need to cover it with a dressing. Keep your incision clean, dry and intact. In most cases, we apply skin glue, afsaneh or sutures to the incision at the time of surgery. This will be like a crust or have the appearance of a scab and will fall off in time on its own. The stitches or afsaneh need to be removed at 3 weeks post op appointment. You may begin to shower 3 days after surgery (this allows the glue to calhoun well). However, please avoid scrubbing the incision site or peeling off any of the skin glue. This will ensure optimal healing of your incision. Also, during this time avoid soaking the incision area in water - this includes swimming pools, hot tubs or baths. No ointments, lotions or oils on the incision until your surgeon allows. Leave afsaneh, sutures or glue in place. Neurological dysfunction that comes on suddenly can also be a sign of a stroke. Below some common symptoms of a stroke are listed: B - balance difficulty such as sudden onset walking or leaning to one side - NEW E - eye problem such as sudden double vision or trouble seeing on one side - NEW F - Facial weakness or numbness on one side - NEW A - Arm or leg weakness or numbness on one side - NEW S - Slurred speech or difficulty with word finding - NEW T - Time is BRAIN! Call 911 as soon as you recognize these symptoms Diet: Consume a regular diet rich in vegetables and lean protein such as chicken or fish. You should consume in a ratio of approximately 20% fats|40% carbohydrates|40%protein. Vegetables, sweet potatoes, brown rice or quinoa are examples of good carbohydrates. Chips, white bread, cookies and sweets/sugar are examples of bad carbohydrates. Limit your bad carbs, go wild with good carbs. "Life's Simple 7" Guidelines as per [place] [employer] These will help you reclaim your life after surgery and carpet or rug layer helper in your recovery, keeping in mind your restrictions. (1) Get Active. Physical activity can help people lose weight, control high blood pressure and cholesterol, feel emotionally better, and sleep better. (2) Control Cholesterol. Avoid a diet high in saturated fat, trans fat, & cholesterol. Limit whole milk & cream, ice cream, butter, egg yolks, processed meats (like sausage and hot dogs), and fatty meats. Choose healthy foods that are low in saturated fat, trans fat and cholesterol which include: Fruits and vegetables, fiber rich grain products (like whole grain pasta and brown rice), lean meat such as chicken, fish, nuts, seeds, and legumes. (3) Eat Better. Eat small portions. Shop at the grocery with a list and do not stray from it. Tips for a healthy diet include: Limit sodium intake to less than 1500mg daily, avoid prepackaged, processed, and fast foods, choose a diet rich in fruits, vegetables, and whole grain, high fiber foods, and limit saturated & cholesterol in your diet. (4) Manage Blood Pressure. If you have high blood pressure, you should have a cuff at home so that you can check your blood pressure regularly. Be sure you have a good cuff. An arm one is generally better than a wrist one. Bring the cuff to a doctor's appointment to validate that the measurements that your cuff are taking are accurate. Take your blood pressure twice daily when you are sitting down and relaxing. Record the numbers in a log and bring this log with you to your doctors' appointments. (5) Lose Weight if your BMI is above 25. A healthy BMI is between 19-25. To calculate Your BMI, you may use a Standard BMI Calculator on the NIH BMI website: <www.nhlbi.nih.gov/guidelines/obesity/BMI/bmicalc.htm>. Weigh oneself daily. If you are overweight, set a goal to lose weight. A pound a week loss if needed is a good target. (6) Reduce Blood Sugar. Limit foods and liquids with "added sugars." (Added sugars include sucrose, fructose, glucose, maltose, dextrose, high fructose corn syrup, corn syrup, concentrated fruit juice and honey). (7) Stop Smoking. If you smoke, quitting smoking is one of the best things that you can do for your health. Smoking increases your risk of heart attack, stroke, and peripheral vascular disease, which is a build-up of plaque in your arteries. Please discard all the cigarettes and lighters in your house. Have a plan for what you will do when you have the urge to smoke. Direct and second- hand smoke shortens your life as well as the lives of your family, friends and others around you. For your health and the health of those around you, please consider quitting! Proper Bending Body Mechanics: Maintain a wide stance with one foot slightly in front of the other. Keep your back straight. Bend utilizing the strength in your hips and knees. Do not bend at the waist. Maintain the lifted object at your waist-level close to your body. Avoid lifting weight that causes immediately pain or pain anywhere in the body afterwards. Smoking/Nicotine If there was ever one thing that you could do to increase your overall health, decrease your risk of cardiovascular problems by about 39% the second you make the choice, it is to STOP SMOKING. Your body's most instant gratification is the second you stop smoking. We have all heard the studies, read the articles but it is true, smoking is extremely bad for your overall health, and moreover it is detrimental to your bone health. Nicotine, IN ANY FORM, kills bone cells, prevents your body from healing fractures, and significantly prolongs healing after surgery. In spine surgery specifically, it increases your risk of not healing your bones to create a fusion and increases your risk of having a revision surgery due to this up to 60%. I know it is hard. I know it feels impossible. But there are ways. Take control of your life. We are here to help you through it. And when you are ready, ask us and we can direct you to help if you desire. Use the START Plan to Quit Smoking (please visit the Helpguide.org website listed below for more information): S = Set a quit date. Choose a date within the next 2 weeks, so you have enough time to prepare without losing your motivation to quit. If you mainly smoke at work, quit on the weekend, so you have a few days to adjust to the change. T = Tell family, friends, and co-workers that you plan to quit. Let your friends and family in on your plan to quit smoking and tell them you need their support and encouragement to stop. Look for a quit giuliana who wants to stop smoking as well. You can help each other get through the rough times. A = Anticipate and plan for the challenges you'll face while quitting. Most people who begin smoking again do so within the first 3 months. You can help yourself make it through by preparing ahead for common challenges, such as nicotine withdrawal and cigarette cravings. R = Remove cigarettes and other tobacco products from your home, car, and work. Throw away all your cigarettes (no emergency pack!), lighters, ashtrays, and matches. Wash your clothes and freshen up anything that smells like smoke. Shampoo your car, clean your drapes and carpet, and steam your furniture. T = Talk to your doctor about getting help to quit. Your doctor can prescribe medication to help with withdrawal and suggest other alternatives. If you can't see a doctor, you can get many products over the counter at your local pharmacy or grocery store, including the nicotine patch, nicotine lozenges, and nicotine gum. Resources for Quitting Smoking: <https://www.[place].gov/documents/[facility]/Quit_Tobacco_Resources_for_patients_313 480_7.pdf> Supplementation: Take recommended dosages of Vitamin D and Calcium to help fortify your bones and help them to heal. See your health maintenance packet for dosages and recommended levels. DVT/VTE prophylaxis: You will be given compression stockings from the hospital. Wear these daily for the first two weeks after surgery. You may take them off at night. You may be prescribed a medication to help thin your blood. Take this as directed. If you are not prescribed this medication, early and frequent ambulation has been shown to be the best prophylaxis to deep vein thrombosis and sequelae related to this event. Discharge Disposition: TRANSFER TO SNF/ECF
[2022-05-21 17:29] LABS: Glucose,Whole Blood 128 mg/dL (70-110)
[2022-05-21] MEDS: TAMSULOSIN 0.4 MG CAP.ER.24H PO SCH (18:21)
== END 2022-05-21 19:47 | DRG 460 ==
LOC: 2ORMAIN 05:33 → 2SICU 15:43 → 5NMEDONC 05-16 10:51
PROVIDERS: ADMIT Orthopaedic Surgery; ATTEND Orthopaedic Surgery
PROC: 01NB0ZZ Release Lumbar Nerve, Open Approach (ICD-10-PCS; 2022-05-15)
PROC: 01NR0ZZ Release Sacral Nerve, Open Approach (ICD-10-PCS; 2022-05-15)
PROC: 00NY0ZZ Release Lumbar Spinal Cord, Open Approach (ICD-10-PCS; 2022-05-15)
PROC: 0SG10AJ Fusion of 2 or more Lumbar Vertebral Joints with Interbody Fusion Device, Posterior Approach, Anterior Column, Open Approach (ICD-10-PCS; 2022-05-15)
PROC: 0SG30AJ Fusion of Lumbosacral Joint with Interbody Fusion Device, Posterior Approach, Anterior Column, Open Approach (ICD-10-PCS; 2022-05-15)
PROC: 0QS00ZZ Reposition Lumbar Vertebra, Open Approach (ICD-10-PCS; 2022-05-15)
PROC: 0QS10ZZ Reposition Sacrum, Open Approach (ICD-10-PCS; 2022-05-15)
PROC: 0SG107J Fusion of 2 or more Lumbar Vertebral Joints with Autologous Tissue Substitute, Posterior Approach, Anterior Column, Open Approach (ICD-10-PCS; principal; 2022-05-15 07:30)
DX: M47.16 Other spondylosis with myelopathy, lumbar region (principal); N17.9 Acute kidney failure, unspecified; E87.20 Acidosis, unspecified; E87.1 Hypo-osmolality and hyponatremia; J98.11 Atelectasis; M50.221 Other cervical disc displacement at C4-C5 level; I95.9 Hypotension, unspecified; I11.9 Hypertensive heart disease without heart failure; E11.65 Type 2 diabetes mellitus with hyperglycemia; J45.909 Unspecified asthma, uncomplicated; E03.9 Hypothyroidism, unspecified; M43.16 Spondylolisthesis, lumbar region; M48.062 Spinal stenosis, lumbar region with neurogenic claudication; M48.07 Spinal stenosis, lumbosacral region; M47.26 Other spondylosis with radiculopathy, lumbar region; M21.372 Foot drop, left foot; R26.0 Ataxic gait; M25.78 Osteophyte, vertebrae; G47.9 Sleep disorder, unspecified; M48.02 Spinal stenosis, cervical region; R53.81 Other malaise; R33.8 Other retention of urine; R35.1 Nocturia; R39.11 Hesitancy of micturition; E78.5 Hyperlipidemia, unspecified; G89.29 Other chronic pain; N40.1 Benign prostatic hyperplasia with lower urinary tract symptoms; E86.1 Hypovolemia; R50.82 Postprocedural fever; R00.0 Tachycardia, unspecified; Z20.822 Contact with and (suspected) exposure to COVID-19; Z87.891 Personal history of nicotine dependence; Z79.4 Long term (current) use of insulin; Z79.84 Long term (current) use of oral hypoglycemic drugs; Z79.899 Other long term (current) drug therapy; Z87.442 Personal history of urinary calculi; Z28.310 Unvaccinated for COVID-19
CPT/HCPCS: 71045; 71046; 72100; 72131; 80048; 80053; 81001; 82607; 82746; 82805; 83036; 83540; 83550; 83880; 84443; 85025; 85027; 86850; 86900; 86901; 86920; 87635; 94640; 94760

== ENCOUNTER 2024-11-20 20:36 | Inpatient (IN) | payer BC ==
[2024-11-20 20:42] LABS: Glucose,Whole Blood 70 mg/dL (70-110)
--- NOTE | 2024-11-20 21:06 | ED ---
Recheck HPI - General Chief Complaint: Nausea/Vomiting/Diarrhea Stated Complaint: Diarrhea Time Seen by Provider: 11/20/24 20:43 Source: patient, RN notes reviewed, old records reviewed Mode of arrival: ambulatory Limitations: no limitations - History of Present Illness Initial Comments: This is a 69-year-old male to the ER for evaluation of the patient's today for evaluation regards to uncontrolled or poorly controlled diabetes with both high and low blood sugars. Patient occasionally feels weak but at this point has been concerning himself for low blood sugars MD Complaint: abnormal lab (Low blood sugars) -: week(s) Returns Today for: Called Because of Abnormal Lab/Test Symptoms Since Prior Visit: no new symptoms Context: planned re-check, called for abnormal lab result Associated Symptoms: none Treatments Prior to Arrival: other (0) - Related Data Home Medications Medication Instructions Recorded Confirmed Ezetimibe [Zetia] 10 mg PO HS 05/13/22 11/21/24 glipiZIDE 5 mg PO TID 05/13/22 11/21/24 Levothyroxine Sodium [Synthroid] 175 mcg PO DAILY 11/21/24 11/21/24 Rosuvastatin [Crestor] 20 mg PO HS 11/21/24 11/21/24 Semaglutide [Rybelsus] 7 mg PO AC-BRKFST 11/21/24 11/21/24 Previous Rx's Medication Instructions Recorded Sodium Bicarbonate Tab 650 mg PO BID 30 Days #60 tab 11/23/24 Allergies Allergy/AdvReac Type Severity Reaction Status Date / Time No Known Allergies Allergy Verified 11/21/24 08:03 Review of Systems ROS Statement: Those systems with pertinent positive or pertinent negative responses have been documented in the HPI. ROS Other: All systems not noted in ROS Statement are negative. Past Medical History Past Medical History: Asthma, Diabetes Mellitus, Hyperlipidemia, Hypertension, Thyroid Disorder Additional Past Medical History / Comment(s): No treatment for Asthma needed in many many years. Hx kidney stones. History of Any Multi-Drug Resistant Organisms: None Reported Past Surgical History: Back Surgery, Hernia Repair Additional Past Surgical History / Comment(s): Surgery for perforated ulcer at 15 yrs of age. Past Anesthesia/Blood Transfusion Reactions: No Reported Reaction Additional Past Anesthesia/Blood Transfusion Reaction / Comment(s): "Severe Need le Phobia." Past Psychological History: No Psychological Hx Reported Smoking Status: Former smoker Past Alcohol Use History: Rare Past Drug Use History: None Reported - Past Family History Mother Family Medical History: No Reported History Additional Family Medical History / Comment(s): Strong family hx of Akua's Disease. General Exam Limitations: no limitations General appearance: alert, in no apparent distress Head exam: Present: atraumatic, normocephalic, normal inspection Eye exam: Present: normal appearance, PERRL, EOMI. Absent: scleral icterus, conjunctival injection, periorbital swelling ENT exam: Present: normal exam, mucous membranes moist Neck exam: Present: normal inspection. Absent: tenderness, meningismus, lymphadenopathy Respiratory exam: Present: normal lung sounds bilaterally. Absent: respiratory distress, wheezes, rales, rhonchi, stridor Cardiovascular Exam: Present: regular rate, normal rhythm, normal heart sounds. Absent: systolic murmur, diastolic murmur, rubs, gallop, clicks GI/Abdominal exam: Present: soft, normal bowel sounds. Absent: distended, tenderness, guarding, rebound, rigid Extremities exam: Present: normal inspection, full ROM, normal capillary refill. Absent: tenderness, pedal edema, joint swelling, calf tenderness Back exam: Present: normal inspection Neurological exam: Present: alert, oriented X3, CN II-XII intact Psychiatric exam: Present: normal affect, normal mood Skin exam: Present: warm, dry, intact, normal color. Absent: rash Course Vital Signs 11/20/24 11/20/24 11/21/24 20:38 23:26 00:33 Temperature 97.5 F L Pulse Rate 100 108 H 105 H Respiratory 16 20 20 Rate Blood Pressure 166/80 188/108 116/64 O2 Sat by Pulse 98 96 95 Oximetry 11/21/24 11/21/24 01:40 01:54 Temperature 98.9 F 98.9 F Pulse Rate 105 H 105 H Respiratory 18 18 Rate Blood Pressure 163/90 163/90 O2 Sat by Pulse 96 96 Oximetry - Reevaluation(s) Reevaluation #1: 11/20/24 22:00 Medical records reviewed Reevaluation #2: 11/20/24 23:04 Patient symptoms improved here in the ER Reevaluation #3: 11/20/24 23:04 Patient informed of results questions answered Reevaluation #4: Was pt. sent in by a medical professional or institution ([facility], ERP ENGINEER, urgent care, hospital, or fdc...) When possible be specific @ -no Did you speak to anyone other than the patient for history (EMS, parent, family, police, friend...)? What history was obtained from this source @ -no Did you review nursing and triage notes (agree or disagree)? Why? @ -agree Are old charts reviewed (outside hosp., previous admission, EMS record, old EKG, old radiological studies, urgent care reports/EKG's, fdc records)? Report findings @ -yes Differential Diagnosis (chest pain, altered mental status, abdominal pain women, abdominal pain men, vaginal bleeding, weakness, fever, dyspnea, syncope, hea dache, dizziness, GI bleed, back pain, seizure, CVA, palpatations, mental health, musculoskeletal)? @ -prior EKG interpreted by me (3pts min.). @ -yes X-rays interpreted by me (1pt min.). @ -no CT interpreted by me (1pt min.). @ -yes negative for acute disease U/S interpreted by me (1pt. min.). @ - yes negative for acute disease What testing was considered but not performed or refused? (CT, X-rays, U/S, labs)? Why? @ -none What meds were considered but not given or refused? Why? @ -none Did you discuss the management of the patient with other professionals (professionals i.e. [facility], ERP ENGINEER, lab, RT, psych nurse, social worker palliative care, ophthalmology surgical technician, teacher, conservation enforcement officer, cyanide case hardener)? Give summary @ -no Was smoking cessation discussed for >3mins.? @ -no Was critical care preformed (if so, how long)? @ -no Were there social determinants of health that impacted care today? How? (Homelessness, low income, unemployed, alcoholism, drug addiction, transportation, low edu. Level, literacy, decrease access to med. care, retirement, rehab)? @ -none Was there de-escalation of care discussed even if they declined (Discuss DNR or withdrawal of care, Hospice)? DNR status @ -no What co-morbidities impacted this encounter? (DM, HTN, Smoking, COPD, CAD, Cancer, CVA, ARF, Chemo, Hep., AIDS, mental health diagnosis, sleep apnea, morbid obesity)? @ -none Was patient admitted / discharged? Hospital course, mention meds given and route, prescriptions, significant lab abnormalities, going to OR and other pertinent info. @ - 69 male to the ER for evaluation of acute kidney injury acute renal failure this is new onset for this patient longstanding history of diabetes with low blood sugar was his main concern for presenting today. Also complaining of diarrhea Admitted Undiagnosed new problem with uncertain prognosis? @ -no Drug Therapy requiring intensive monitoring for toxicity (Heparin, Nitro, Insulin, Cardizem)? @ -no Were any procedures done? @ -no Diagnosis/symptom? @ -Acute renal failure Acute, or Chronic, or Acute on Chronic? @ -Acute Uncomplicated (without systemic symptoms) or Complicated (systemic symptoms)? @ -Complicated Side effects of treatment? @ -no Exacerbation, Progression, or Severe Exacerbation? @ -exacerbation Poses a threat to life or bodily function? How? (Chest pain, [place], [place], pneumonia, PE, COPD, DKA, ARF, appy, cholecystitis, CVA, Diverticulitis, Homicidal, Suicidal, threat to staff... and all critical care pts) @ -yes significant renal failure - Consultations Consultation #1: Spoke with Dr. Traore agrees to admit this patient Medical Decision Making - Medical Decision Making 69 male to the ER for evaluation of acute kidney injury acute renal failure this is new onset for this patient longstanding history of diabetes with low blood sugar was his main concern for presenting today. Also complaining of diarrhea - Lab Data Result diagrams: 11/23/24 03:23 11/23/24 03:23 Lab Results 11/20/24 11/20/24 11/20/24 Range/Units 20:41 21:34 21:34 WBC 6.19 (4.50-10.00) 10*3/uL RBC 4.66 (4.40-5.60) 10*6/uL Hgb 14.3 (13.0-17.0) g/dL Hct 42.3 (39.6-50.0) % MCV 90.8 (80.0-97.0) fL MCH 30.7 (27.0-32.0) pg MCHC 33.8 (32.0-37.0) g/dL Plt Count 172 (140-440) 10*3/uL MPV 9.6 (9.5-12.2) fL Immature Gran % (Auto) 0.3 % Neutrophils % 72.4 % Lymphocytes % 15.8 % Monocytes % 7.9 % Eosinophils % 3.4 % Basophils % 0.2 % Immature Gran # 0.02 (0.00-0.04) 10*3/uL Neutrophils # 4.48 (1.80-7.70) 10*3/uL Lymphocytes # 0.98 (0.90-5.00) 10*3/uL Monocytes # 0.49 (0.20-1.00) 10*3/uL Eosinophils # 0.21 (0.04-0.35) 10*3/uL Basophils # 0.01 (0.00-0.10) 10*3/uL Sodium (137-145) mmol/L Potassium (3.5-5.1) mmol/L Chloride (98-107) mmol/L Carbon Dioxide (22-30) mmol/L Anion Gap mmol/L BUN (9-20) mg/dL Creatinine (0.66-1.25) mg/dL Est GFR (CKD-EPI)AfAm (>60 ml/min/1.73 sqM) Est GFR (CKD-EPI)NonAf (>60 ml/min/1.73 sqM) Glucose (74-99) mg/dL POC Glucose (mg/dL) 70 (70-110) mg/dL POC Glu Clothing Consultant ID Achatz Raissa Calcium (8.4-10.2) mg/dL Phosphorus (2.5-4.5) mg/dL Magnesium (1.6-2.3) mg/dL Total Bilirubin (0.2-1.3) mg/dL AST (17-59) U/L ALT (4-49) U/L Alkaline Phosphatase (38-126) U/L Troponin I (0.000-0.034) ng/mL NT-Pro-B Natriuret Pep pg/mL Total Protein (6.3-8.2) g/dL Albumin (3.5-5.0) g/dL TSH (0.465-4.680) mIU/L Urine Color Light Yellow Urine Appearance Cloudy (Clear) Urine pH 5.5 (5.0-8.0) Ur Specific [place] 1.017 (1.001-1.035) Urine Protein 2+ H (Negative) Urine Glucose (UA) Negative (Negative) Urine Ketones Negative (Negative) Urine Blood Small H (Negative) Urine Nitrite Negative (Negative) Urine Bilirubin Negative (Negative) Urine Urobilinogen <2.0 (<2.0) mg/dL Ur Leukocyte Esterase Negative (Negative) Urine RBC <1 (0-5) /hpf Urine WBC 2 (0-5) /hpf Ur Squamous Epith Cells 1 (0-4) /hpf Urine Mucus Rare H (None) /hpf 11/20/24 11/20/24 Range/Units 21:34 21:34 WBC (4.50-10.00) 10*3/uL RBC (4.40-5.60) 10*6/uL Hgb (13.0-17.0) g/dL Hct (39.6-50.0) % MCV (80.0-97.0) fL MCH (27.0-32.0) pg MCHC (32.0-37.0) g/dL Plt Count (140-440) 10*3/uL MPV (9.5-12.2) fL Immature Gran % (Auto) % Neutrophils % % Lymphocytes % % Monocytes % % Eosinophils % % Basophils % % Immature Gran # (0.00-0.04) 10*3/uL Neutrophils # (1.80-7.70) 10*3/uL Lymphocytes # (0.90-5.00) 10*3/uL Monocytes # (0.20-1.00) 10*3/uL Eosinophils # (0.04-0.35) 10*3/uL Basophils # (0.00-0.10) 10*3/uL Sodium 136 L (137-145) mmol/L Potassium 4.4 (3.5-5.1) mmol/L Chloride 103 (98-107) mmol/L Carbon Dioxide 19 L (22-30) mmol/L Anion Gap 14 mmol/L BUN 68 H (9-20) mg/dL Creatinine 3.46 H (0.66-1.25) mg/dL Est GFR (CKD-EPI)AfAm 20 (>60 ml/min/1.73 sqM) Est GFR (CKD-EPI)NonAf 17 (>60 ml/min/1.73 sqM) Glucose 72 L (74-99) mg/dL POC Glucose (mg/dL) (70-110) mg/dL POC Glu Clothing Consultant ID Calcium 8.7 (8.4-10.2) mg/dL Phosphorus 5.2 H (2.5-4.5) mg/dL Magnesium 1.8 (1.6-2.3) mg/dL Total Bilirubin 0.4 (0.2-1.3) mg/dL AST 32 (17-59) U/L ALT 38 (4-49) U/L Alkaline Phosphatase 92 (38-126) U/L Troponin I <0.012 (0.000-0.034) ng/mL NT-Pro-B Natriuret Pep 119 pg/mL Total Protein 6.7 (6.3-8.2) g/dL Albumin 4.0 (3.5-5.0) g/dL TSH 1.820 (0.465-4.680) mIU/L Urine Color Urine Appearance (Clear) Urine pH (5.0-8.0) Ur Specific [place] (1.001-1.035) Urine Protein (Negative) Urine Glucose (UA) (Negative) Urine Ketones (Negative) Urine Blood (Negative) Urine Nitrite (Negative) Urine Bilirubin (Negative) Urine Urobilinogen (<2.0) mg/dL Ur Leukocyte Esterase (Negative) Urine RBC (0-5) /hpf Urine WBC (0-5) /hpf Ur Squamous Epith Cells (0-4) /hpf Urine Mucus (None) /hpf - Radiology Data Radiology results: report reviewed (CT abdomen pelvis and ultrasound renals and bladder pending), image reviewed Disposition Clinical Impression: Dehydration, HUNG (acute kidney injury) Disposition: ADMITTED IP TO THIS HOSP Condition: Stable Is patient prescribed a controlled substance at d/c from ED?: No Time of Disposition: 23:00
[2024-11-20] MEDS: SODIUM CHLORIDE 0.9% 1,000 ML IV ONE (21:37)
[2024-11-20 21:40] LABS: Basophils # (A) 0.01 10*3/uL (0.00-0.10); Basophils % (A) 0.2 %; Eosinophils # (A) 0.21 10*3/uL (0.04-0.35); Eosinophils % (A) 3.4 %; HCT 42.3 % (39.6-50.0); HGB 14.3 g/dL (13.0-17.0); Lymphocytes # (A) 0.98 10*3/uL (0.90-5.00); Lymphocytes % (A) 15.8 %; MCH 30.7 pg (27.0-32.0); MCHC 33.8 g/dL (32.0-37.0); MCV 90.8 fL (80.0-97.0); Monocytes # (A) 0.49 10*3/uL (0.20-1.00); Monocytes % (A) 7.9 %; Neutrophils # (A) 4.48 10*3/uL (1.80-7.70); Neutrophils % (A) 72.4 %; Platelet Count 172 10*3/uL (140-440); RBC 4.66 10*6/uL (4.40-5.60); RDW 12.6 % (11.5-14.5); WBC 6.19 10*3/uL (4.50-10.00)
[2024-11-20 21:46] LABS: Bilirubin,Urine Negative (Negative); Blood,Urine Small (Negative); Color,Urine Light Yellow; Glucose,Urine (UA) Negative (Negative); Ketones,Urine Negative (Negative); Leukocyte Esterase,Urine Negative (Negative); Mucus,Urine Rare /hpf; Nitrite,Urine Negative (Negative); PH, Urine 5.5 (5.0-8.0); Protein,Urine 2+ (Negative); RBC,Urine <1 /hpf (0-5); Specific Gravity,Urine 1.017 (1.001-1.035); Squamous Epithelial Cell,Urine 1 /hpf (0-4); Urobilinogen,Urine <2.0 mg/dL (<2.0); WBC,Urine 2 /hpf (0-5)
[2024-11-20 21:57] LABS: ALT 38 U/L (4-49); AST 32 U/L (17-59); African American GFR (CKD) 20 (>60 ml/min/1.73 sqM); Albumin 4.0 g/dL (3.5-5.0); Alkaline Phosphatase 92 U/L (38-126); Anion Gap 14 mmol/L; Blood Urea Nitrogen 68 mg/dL (9-20); Calcium 8.7 mg/dL (8.4-10.2); Carbon Dioxide 19 mmol/L (22-30); Chloride 103 mmol/L (98-107); Glucose 72 mg/dL (74-99); Magnesium 1.8 mg/dL (1.6-2.3); Non-African American GFR(CKD) 17 (>60 ml/min/1.73 sqM); Potassium 4.4 mmol/L (3.5-5.1); Sodium 136 mmol/L (137-145); Total Protein 6.7 g/dL (6.3-8.2)
[2024-11-20 22:06] LABS: NT-Pro-B-Type Natriuretic Pept 119 pg/mL
[2024-11-20] MEDS ORDERED: NALOXONE 0.4 MG/ML 1 ML VIAL IV PRN (23:02)
[2024-11-20] MEDS: SODIUM CHLORIDE 0.9% 1,000 ML IV SCH (23:24)
--- NOTE | 2024-11-21 00:42 | CT ---
EXAM: CT Abdomen and Pelvis Without Intravenous Contrast CLINICAL HISTORY: ITS.REASON CT Reason: renal failure TECHNIQUE: Axial computed tomography images of the abdomen and pelvis without intravenous contrast. CTDI is 26.2 mGy and DLP is 1966.4 mGy-cm. This CT exam was performed using one or more of the following dose reduction techniques: automated exposure control, adjustment of the mA and/or kV according to patient size, and/or use of iterative reconstruction technique. COMPARISON: No relevant prior studies available. FINDINGS: Lung bases: Atelectasis in the at the left lung base. ABDOMEN: Liver: Unremarkable. Gallbladder and bile ducts: Unremarkable. No calcified stones. No ductal dilation. Pancreas: Unremarkable. No ductal dilation. Spleen: Unremarkable. No splenomegaly. Adrenals: Unremarkable. No mass. Kidneys and ureters: Atrophy of the right kidney. Nonobstructing bilateral renal stones measuring up to 1 cm in the left upper pole. Stomach and bowel: Diverticulosis, without acute diverticulitis. No small bowel obstruction. No free air. PELVIS: Appendix: No findings to suggest acute appendicitis. Bladder: Unremarkable. No stones. Reproductive: Unremarkable as visualized. ABDOMEN and PELVIS: Intraperitoneal space: See above. Bones/joints: Degenerative changes of the spine. Multilevel posterior fusion extending from L3-S1. No acute fracture. No dislocation. Soft tissues: Fat containing ventral abdominal wall hernia measures a proximally 4.8 x 3.8 cm. Vasculature: Atherosclerotic changes of the aorta. No abdominal aortic aneurysm. Lymph nodes: Unremarkable. No enlarged lymph nodes. IMPRESSION: 1. Atrophy of the right kidney. Nonobstructing bilateral renal stones measuring up to 1 cm in the left upper pole. 2. Fat containing ventral abdominal wall hernia measures a proximally 4. 8 x 3.8 cm. 3. Multilevel posterior fusion extending from L3-S1. 4. Diverticulosis, without acute diverticulitis. No small bowel obstruction. No free air.
--- NOTE | 2024-11-21 01:13 | US ---
EXAM: US Retroperitoneal Limited, Renal CLINICAL HISTORY: ITS.REASON US Reason: renal failure TECHNIQUE: Real-time limited ultrasound of the retroperitoneum with image documentation. COMPARISON: No relevant prior studies available. FINDINGS: Right kidney: 1.4 cm nonobstructive stone. No solid mass. No hydronephrosis. Left kidney: No stones. No solid mass. No hydronephrosis. Bladder: Unremarkable. IMPRESSION: Nonobstructive stone right kidney
[2024-11-21 01:22] LABS: Glucose,Whole Blood 71 mg/dL (70-110)
[2024-11-21 06:17] LABS: Glucose,Whole Blood 93 mg/dL (70-110)
[2024-11-21 07:03] LABS: Basophils # (A) 0.02 10*3/uL (0.00-0.10); Basophils % (A) 0.3 %; Eosinophils # (A) 0.40 10*3/uL (0.04-0.35); Eosinophils % (A) 6.5 %; HCT 42.0 % (39.6-50.0); HGB 14.1 g/dL (13.0-17.0); Lymphocytes # (A) 1.32 10*3/uL (0.90-5.00); Lymphocytes % (A) 21.5 %; MCH 31.1 pg (27.0-32.0); MCHC 33.6 g/dL (32.0-37.0); MCV 92.7 fL (80.0-97.0); Monocytes # (A) 0.52 10*3/uL (0.20-1.00); Monocytes % (A) 8.5 %; Neutrophils # (A) 3.86 10*3/uL (1.80-7.70); Neutrophils % (A) 62.7 %; Platelet Count 183 10*3/uL (140-440); RBC 4.53 10*6/uL (4.40-5.60); RDW 13.0 % (11.5-14.5); WBC 6.15 10*3/uL (4.50-10.00)
[2024-11-21 07:19] LABS: ALT 35 U/L (4-49); AST 32 U/L (17-59); African American GFR (CKD) 26 (>60 ml/min/1.73 sqM); Albumin 3.5 g/dL (3.5-5.0); Alkaline Phosphatase 94 U/L (38-126); Anion Gap 10 mmol/L; Blood Urea Nitrogen 58 mg/dL (9-20); Calcium 8.0 mg/dL (8.4-10.2); Carbon Dioxide 20 mmol/L (22-30); Chloride 109 mmol/L (98-107); Glucose 85 mg/dL (74-99); Magnesium 1.8 mg/dL (1.6-2.3); Non-African American GFR(CKD) 22 (>60 ml/min/1.73 sqM); Potassium 4.0 mmol/L (3.5-5.1); Sodium 139 mmol/L (137-145); Total Protein 6.1 g/dL (6.3-8.2)
[2024-11-21 11:33] LABS: Glucose,Whole Blood 120 mg/dL (70-110)
--- NOTE | 2024-11-21 11:56 | P.NPCON ---
History of Present Illness - Reason for Consult acute renal failure - History of Present Illness Patient is a 69-year-old male with history of hypertension, type 2 diabetes, hypothyroidism and history of nephrolithiasis. Patient is admitted to the hospital with complaints of nausea vomiting and diarrhea. Patient felt quite weak. No urinary symptoms. He states that he has borderline weak kidney functi on for some time and was scheduled to see us as outpatient. No significant hypotension noted No history of use of NSAIDs, these were stopped about 6 months ago. Patient is maintained on angiotensin receptor blockers. Serum creatinine was 3.4 on admission and decreased to 2.8 today. Previous creatinine 1.2 on 05/20/2023. Patient is currently maintained on IV fluids. Valsartan on hold. Past Medical History Past Medical History: Asthma, Diabetes Mellitus, Hyperlipidemia, Hypertension, Thyroid Disorder Additional Past Medical History / Comment(s): No treatment for Asthma needed in many many years. Hx kidney stones. History of Any Multi-Drug Resistant Organisms: None Reported Past Surgical History: Back Surgery, Hernia Repair Additional Past Surgical History / Comment(s): Surgery for perforated ulcer at 15 yrs of age. Past Anesthesia/Blood Transfusion Reactions: No Reported Reaction Additional Past Anesthesia/Blood Transfusion Reaction / Comment(s): "Severe Needle Phobia." Past Psychological History: No Psychological Hx Reported Smoking Status: Never smoker Past Alcohol Use History: Rare Additional Past Alcohol Use History / Comment(s): Smoked briefly in high school. Past Drug Use History: None Reported - Past Family History Mother Family Medical History: No Reported History Additional Family Medical History / Comment(s): Strong family hx of Akua's Disease. Medications and Allergies Home Medications Medication Instructions Recorded Confirmed Type Ezetimibe [Zetia] 10 mg PO HS 05/13/22 11/21/24 History Valsartan 320 mg PO DAILY 05/13/22 11/21/24 History glipiZIDE 5 mg PO TID 05/13/22 11/21/24 History Levothyroxine Sodium [Synthroid] 175 mcg PO DAILY 11/21/24 11/21/24 History Rosuvastatin [Crestor] 20 mg PO HS 11/21/24 11/21/24 History Semaglutide [Rybelsus] 7 mg PO AC-BRKFST 11/21/24 11/21/24 History Allergies Allergy/AdvReac Type Severity Reaction Status Date / Time No Known Allergies Allergy Verified 11/21/24 08:03 Physical Exam Vitals: Vital Signs Temp Pulse Pulse Resp BP BP Pulse Ox 11/21/24 07:03 99 F 100 16 138/76 95 11/21/24 02:00 98.7 F 106 H 18 151/89 96 11/21/24 01:54 98.9 F 105 H 18 163/90 96 11/21/24 01:40 98.9 F 105 H 18 163/90 96 11/21/24 00:33 105 H 20 116/64 95 11/20/24 23:26 108 H 20 188/108 96 11/20/24 20:38 97.5 F L 100 16 166/80 98 Intake and Output 11/20/24 11/21/24 11/21/24 22:59 06:59 14:59 Other: Voiding Method Toilet Toilet Urinal Urinal # Voids 1 # Bowel Movements 2 Weight 123.831 kg 123.831 kg Patient is awake, comfortable, no acute distress Examination of the heart S1 and S2 Examination of the lungs bilateral breath sounds are heard Abdomen is soft nontender, ventral hernia noted Examination of lower extremity shows no evidence of edema WATER COMMISSIONER exam grossly intact Results - Lab Results Most recent lab results Calcium 8.0 mg/dL (8.4-10.2) L 11/21/24 06:31 Phosphorus 5.0 mg/dL (2.5-4.5) H 11/21/24 06:31 Magnesium 1.8 mg/dL (1.6-2.3) 11/21/24 06:31 11/21/24 06:31 11/21/24 06:31 Assessment and Plan Assessment: 1. Acute kidney injury associated with volume depletion, improving with IV hydration. UA shows 2+ protein and small blood. Ultrasound shows no evidence of obstructive uropathy. Nonobstructive bilateral nephrolithiasis noted on CT scan 2. Nausea vomiting and diarrhea from gastroenteritis, possibly viral 3. Volume depletion maintained on IV fluids 4. 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 Hypertension with CKD stage III A 6. Nephrolithiasis with bilateral nonobstructive renal stones noted on CT scan. Patient has been evaluated by urology many years ago. He will need 24-hour urine for stone profile as outpatient. Plan: Continue with IV fluids Continue to hold angiotensin receptor blockers Start SGLT2 inhibitors once volume status stabilizes Patient will need follow-up as outpatient Avoid nephrotoxic agents Thank you for the consultation. We will continue to follow the patient with you during his hospitalization
[2024-11-21 13:02] LABS: RSV Not Detected (Not Detectd)
--- NOTE | 2024-11-21 13:38 | P.HPIM ---
History of Present Illness H&P Date: 11/21/24 Jose Manuel Leach is a 69-year-old male patient who presented with concerns of low blood sugar. Patient reports he has been sick over the past few days with nausea vomiting and diarrhea. Patient's is apparently also sick at home and he has been feeling quite weak. Patient has additional medical history of essential hypertension, type Beatties, hypothyroidism and nephrolithiasis. CT of abdomen and pelvis completed showing atrophy of the right kidney nonobstructing bilateral renal stones measuring up to 1 cm in the left upper pole fat-containing ventral abdominal wall hernia measuring at approximately 4.8 x 3.8 cm multilevel posterior fusion extending from L3-S1 diverticulosis without acute diverticulitis no small bowel obstruction no free air. Lab work completed showing white blood cell 6.15, hemoglobin 14.1, creatinine 2.82 bun 58 this is improved from admission. Influenza RSV and COVID-19 negative blood sugar has improved to 120. At this time patient will be admitted nephrology services consulted continue IV fluid and symptomatic management. Current vital signs temp 99, heart rate 100, respiratory rate 16, blood pressure 138/76 with pulse ox 95% on room air Review of Systems Please refer to HPI otherwise unremarkable Past Medical History Past Medical History: Asthma, Diabetes Mellitus, Hyperlipidemia, Hypertension, Thyroid Disorder Additional Past Medical History / Comment(s): No treatment for Asthma needed in many many years. Hx kidney stones. History of Any Multi-Drug Resistant Organisms: None Reported Past Surgical History: Back Surgery, Hernia Repair Additional Past Surgical History / Comment(s): Surgery for perforated ulcer at 15 yrs of age. Past Anesthesia/Blood Transfusion Reactions: No Reported Reaction Additional Past Anesthesia/Blood Transfusion Reaction / Comment(s): "Severe Needle Phobia." Past Psychological History: No Psychological Hx Reported Smoking Status: Never smoker Past Alcohol Use History: Rare Additional Past Alcohol Use History / Comment(s): Smoked briefly in high school. Past Drug Use History: None Reported - Past Family History Mother Family Medical History: No Reported History Additional Family Medical History / Comment(s): Strong family hx of [place]'s Disease. Medications and Allergies Home Medications Medication Instructions Recorded Confirmed Type Ezetimibe [Zetia] 10 mg PO HS 05/13/22 11/21/24 History Valsartan 320 mg PO DAILY 05/13/22 11/21/24 History glipiZIDE 5 mg PO TID 05/13/22 11/21/24 History Levothyroxine Sodium [Synthroid] 175 mcg PO DAILY 11/21/24 11/21/24 History Rosuvastatin [Crestor] 20 mg PO HS 11/21/24 11/21/24 History Semaglutide [Rybelsus] 7 mg PO AC-BRKFST 11/21/24 11/21/24 History Allergies Allergy/AdvReac Type Severity Reaction Status Date / Time No Known Allergies Allergy Verified 11/21/24 08:03 Physical Exam Vitals: Vital Signs Temp Pulse Pulse Resp BP BP Pulse Ox 11/21/24 07:03 99 F 100 16 138/76 95 11/21/24 02:00 98.7 F 106 H 18 151/89 96 11/21/24 01:54 98.9 F 105 H 18 163/90 96 11/21/24 01:40 98.9 F 105 H 18 163/90 96 11/21/24 00:33 105 H 20 116/64 95 11/20/24 23:26 108 H 20 188/108 96 11/20/24 20:38 97.5 F L 100 16 166/80 98 Intake and Output 11/20/24 11/21/24 11/21/24 22:59 06:59 14:59 Other: Voiding Method Toilet Toilet Urinal Urinal # Voids 1 # Bowel Movements 2 Weight 123.831 kg 123.831 kg Head normocephalic Neck supple Lungs clear to auscultation bilaterally no wheezing or crackles Heart regular rate and rhythm S1-S2, no rub or gallop Abdomen is soft nontender nondistended positive bowel sounds no hepatosplenomegaly Extremities no edema Neuro alert and orientated to 3 Results CBC & Chem 7: 11/21/24 06:31 11/21/24 06:31 Labs: Abnormal Lab Results - Last 24 Hours (Table) 11/20/24 11/20/24 11/20/24 Range/Units 21:34 21:34 23:05 Eosinophils # (0.04-0.35) 10*3/uL Sodium 136 L (137-145) mmol/L Chloride (98-107) mmol/L Carbon Dioxide 19 L (22-30) mmol/L BUN 68 H (9-20) mg/dL Creatinine 3.46 H (0.66-1.25) mg/dL Glucose 72 L (74-99) mg/dL POC Glucose (mg/dL) (70-110) mg/dL Calcium (8.4-10.2) mg/dL Phosphorus 5.2 H (2.5-4.5) mg/dL Total Protein (6.3-8.2) g/dL Urine Protein 2+ H (Negative) Urine Blood Small H (Negative) Urine Mucus Rare H (None) /hpf Stool Lactoferrin Positive A (Negative) 11/21/24 11/21/24 11/21/24 Range/Units 06:31 06:31 11:31 Eosinophils # 0.40 H (0.04-0.35) 10*3/uL Sodium (137-145) mmol/L Chloride 109 H (98-107) mmol/L Carbon Dioxide 20 L (22-30) mmol/L BUN 58 H (9-20) mg/dL Creatinine 2.82 H (0.66-1.25) mg/dL Glucose (74-99) mg/dL POC Glucose (mg/dL) 120 H (70-110) mg/dL Calcium 8.0 L (8.4-10.2) mg/dL Phosphorus 5.0 H (2.5-4.5) mg/dL Total Protein 6.1 L (6.3-8.2) g/dL Urine Protein (Negative) Urine Blood (Negative) Urine Mucus (None) /hpf Stool Lactoferrin (Negative) Thrombosis Risk Factor Assmnt - Choose All That Apply Any of the Below Risk Factors Present?: No Other Risk Factors: Yes Each Risk Factor Represents 2 Points: Age 61-74 years Thrombosis Risk Factor Assessment Total Risk Factor Score: 2 Thrombosis Risk Factor Assessment Level: Low Risk Assessment and Plan Assessment: Acute kidney injury likely secondary from nausea vomiting and diarrhea Nausea vomiting and diarrhea from gastroenteritis possibly a viral Diabetes mellitus with hypoglycemia. Oral agents currently on hold History of chronic kidney disease stage III History of essential hypertension DVT prophylaxis Lovenox. GI prophylax Protonix Repeat labs ordered for a.m. Continue IV fluid Nephrology services consulted Time with Patient: Greater than 30 (Greater than 60% of the total time spent in counseling and coordination of care)
[2024-11-21 16:34] LABS: Glucose,Whole Blood 128 mg/dL (70-110)
[2024-11-21] MEDS: ATORVASTATIN 40 MG TAB PO SCH (21:28)
[2024-11-21] MEDS: EZETIMIBE 10 MG TAB PO SCH (21:28)
[2024-11-22] MEDS: PANTOPRAZOLE 40 MG TABLET PO SCH (06:32)
[2024-11-22 06:38] LABS: Basophils # (A) 0.02 10*3/uL (0.00-0.10); Basophils % (A) 0.2 %; Eosinophils # (A) 0.36 10*3/uL (0.04-0.35); Eosinophils % (A) 4.3 %; HCT 40.0 % (39.6-50.0); HGB 13.0 g/dL (13.0-17.0); Lymphocytes # (A) 1.33 10*3/uL (0.90-5.00); Lymphocytes % (A) 15.8 %; MCH 30.8 pg (27.0-32.0); MCHC 32.5 g/dL (32.0-37.0); MCV 94.8 fL (80.0-97.0); Monocytes # (A) 0.63 10*3/uL (0.20-1.00); Monocytes % (A) 7.5 %; Neutrophils # (A) 6.02 10*3/uL (1.80-7.70); Neutrophils % (A) 71.7 %; Platelet Count 141 10*3/uL (140-440); RBC 4.22 10*6/uL (4.40-5.60); RDW 12.9 % (11.5-14.5); WBC 8.40 10*3/uL (4.50-10.00)
[2024-11-22 07:15] LABS: ALT 31 U/L (4-49); AST 28 U/L (17-59); African American GFR (CKD) 28 (>60 ml/min/1.73 sqM); Albumin 3.1 g/dL (3.5-5.0); Alkaline Phosphatase 82 U/L (38-126); Anion Gap 9 mmol/L; Blood Urea Nitrogen 53 mg/dL (9-20); Calcium 7.9 mg/dL (8.4-10.2); Carbon Dioxide 15 mmol/L (22-30); Chloride 113 mmol/L (98-107); Glucose 75 mg/dL (74-99); Non-African American GFR(CKD) 25 (>60 ml/min/1.73 sqM); Potassium 4.6 mmol/L (3.5-5.1); Sodium 137 mmol/L (137-145); Total Protein 5.7 g/dL (6.3-8.2)
[2024-11-22] MEDS: ENOXAPARIN 40 MG/0.4 ML SYRINGE SQ SCH (08:54)
[2024-11-22] MEDS: LEVOTHYROXINE 88 MCG TAB PO SCH (08:54)
[2024-11-22 09:04] LABS: Glucose,Whole Blood 137 mg/dL (70-110)
[2024-11-22 11:01] LABS: Glucose,Whole Blood 147 mg/dL (70-110)
--- NOTE | 2024-11-22 11:55 | P.PN ---
Subjective Patient is seen for follow-up for acute kidney injury. Maintained on IV fluids Renal function is slightly improved with creatinine down from 3.4 on admission to 2.59 today. Good urine output Diarrhea has improved CO2 is low at 17 today. Overall feeling better. 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 - Labs CBC & Chem 7: 11/22/24 06:22 11/22/24 06:22 Labs: Abnormal Lab Results - Last 24 Hours (Table) 11/21/24 11/22/24 11/22/24 Range/Units 16:32 06:22 06:22 RBC 4.22 L (4.40-5.60) 10*6/uL MPV 9.4 L (9.5-12.2) fL Eosinophils # 0.36 H (0.04-0.35) 10*3/uL Chloride 113 H (98-107) mmol/L Carbon Dioxide 15 L (22-30) mmol/L BUN 53 H (9-20) mg/dL Creatinine 2.59 H (0.66-1.25) mg/dL POC Glucose (mg/dL) 128 H (70-110) mg/dL Calcium 7.9 L (8.4-10.2) mg/dL Total Protein 5.7 L (6.3-8.2) g/dL Albumin 3.1 L (3.5-5.0) g/dL 11/22/24 11/22/24 Range/Units 09:03 11:00 RBC (4.40-5.60) 10*6/uL MPV (9.5-12.2) fL Eosinophils # (0.04-0.35) 10*3/uL Chloride (98-107) mmol/L Carbon Dioxide (22-30) mmol/L BUN (9-20) mg/dL Creatinine (0.66-1.25) mg/dL POC Glucose (mg/dL) 137 H 147 H (70-110) mg/dL Calcium (8.4-10.2) mg/dL Total Protein (6.3-8.2) g/dL Albumin (3.5-5.0) g/dL Assessment and Plan Assessment: 1. Acute kidney injury associated with volume depletion, improving with IV hydration. UA shows 2+ protein and small blood. Ultrasound shows no evidence of obstructive uropathy. Nonobstructive bilateral nephrolithiasis noted on CT scan 2. Nausea vomiting and diarrhea from gastroenteritis, possibly viral 3. Volume depletion maintained on IV fluids 4. 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 Hypertension with CKD stage III A 6. Nephrolithiasis with bilateral nonobstructive renal stones noted on CT scan. Patient has been evaluated by urology many years ago. He will need 24-hour urine for stone profile as outpatient. Plan: Continue with IV fluids Changed to IV bicarb Continue to hold angiotensin receptor blockers Start SGLT2 inhibitors once volume status stabilizes Patient will need follow-up as outpatient Avoid nephrotoxic agents
[2024-11-22] MEDS: DEXTROSE 5% IN WATER 1,000 ML with SODIUM BICARB (1 MEQ/ML) 150 ML IV SCH (13:34)
--- NOTE | 2024-11-22 15:24 | P.PN ---
Subjective Progress Note Date: 11/22/24 Jose Manuel Leach is a 69-year-old male patient who presented with concerns of low blood sugar. Patient reports he has been sick over the past few days with nausea vomiting and diarrhea. Patient's is apparently also sick at home and he has been feeling quite weak. Patient has additional medical history of essential hypertension, type Beatties, hypothyroidism and nephrolithiasis. CT of abdomen and pelvis completed showing atrophy of the right kidney nonobstructing bilateral renal stones measuring up to 1 cm in the left upper pole fat-containing ventral abdominal wall hernia measuring at approximately 4.8 x 3.8 cm multilevel posterior fusion extending from L3-S1 diverticulosis without acute diverticulitis no small bowel obstruction no free air. Lab work completed showing white blood cell 6.15, hemoglobin 14.1, creatinine 2.82 bun 58 this is improved from admission. Influenza RSV and COVID-19 negative blood sugar has improved to 120. At this time patient will be admitted nephrology services consulted continue IV fluid and symptomatic management. Current vital signs temp 99, heart rate 100, respiratory rate 16, blood pressure 138/76 with pulse ox 95% on room air On 11/22/2024 patient was seen and examined on the medical floor he is alert and oriented x 3 in no apparent distress there is no fever or chills no headache or dizziness no chest pain no shortness of breath no cough no nausea or vomiting no abdominal pain no diarrhea and no urinary symptoms. Temperature is 98.3 pulse 103 respiration 16 blood pressure 131/87 pulse ox 7% on room air sodium 137 potassium 4.6 carbon dioxide 15 BUN 53 creatinine 2.59 time will continue with IV fluid and IV bicarb will follow in a.m. nephrology are also following Objective - Vital Signs Vital signs: Vital Signs Temp 98.2 F 11/22/24 08:00 Pulse 98 11/22/24 08:00 Resp 14 11/22/24 08:00 BP 105/71 11/22/24 08:00 Pulse Ox 96 11/22/24 08:00 FiO2 Intake & Output 11/21/24 11/22/24 11/22/24 18:59 06:59 18:59 Intake Total 1080 Balance 1080 Intake: Oral 1080 Other: Voiding Method Toilet Toilet Urinal Urinal # Voids 2 - Exam Head normocephalic Neck supple Lungs clear to auscultation bilaterally no wheezing or crackles Heart regular rate and rhythm S1-S2, no rub or gallop Abdomen is soft nontender nondistended positive bowel sounds no hepatosplenomegaly Extremities no edema Neuro alert and orientated to 3 - Labs CBC & Chem 7: 11/22/24 06:22 11/22/24 06:22 Labs: Abnormal Lab Results - Last 24 Hours (Table) 11/21/24 11/22/24 11/22/24 Range/Units 16:32 06:22 06:22 RBC 4.22 L (4.40-5.60) 10*6/uL MPV 9.4 L (9.5-12.2) fL Eosinophils # 0.36 H (0.04-0.35) 10*3/uL Chloride 113 H (98-107) mmol/L Carbon Dioxide 15 L (22-30) mmol/L BUN 53 H (9-20) mg/dL Creatinine 2.59 H (0.66-1.25) mg/dL POC Glucose (mg/dL) 128 H (70-110) mg/dL Calcium 7.9 L (8.4-10.2) mg/dL Total Protein 5.7 L (6.3-8.2) g/dL Albumin 3.1 L (3.5-5.0) g/dL 11/22/24 11/22/24 Range/Units 09:03 11:00 RBC (4.40-5.60) 10*6/uL MPV (9.5-12.2) fL Eosinophils # (0.04-0.35) 10*3/uL Chloride (98-107) mmol/L Carbon Dioxide (22-30) mmol/L BUN (9-20) mg/dL Creatinine (0.66-1.25) mg/dL POC Glucose (mg/dL) 137 H 147 H (70-110) mg/dL Calcium (8.4-10.2) mg/dL Total Protein (6.3-8.2) g/dL Albumin (3.5-5.0) g/dL Assessment and Plan Assessment: Acute kidney injury likely secondary from nausea vomiting and diarrhea Nausea vomiting and diarrhea from gastroenteritis possibly a viral Diabetes mellitus with hypoglycemia. Oral agents currently on hold History of chronic kidney disease stage III History of essential hypertension DVT prophylaxis Lovenox. GI prophylax Protonix Repeat labs ordered for a.m. Continue IV fluid Nephrology services consulted
[2024-11-22 16:30] LABS: Glucose,Whole Blood 109 mg/dL (70-110)
[2024-11-23 04:10] LABS: Basophils # (A) 0.02 10*3/uL (0.00-0.10); Basophils % (A) 0.3 %; Eosinophils # (A) 0.43 10*3/uL (0.04-0.35); Eosinophils % (A) 6.6 %; HCT 37.4 % (39.6-50.0); HGB 12.4 g/dL (13.0-17.0); Lymphocytes # (A) 2.21 10*3/uL (0.90-5.00); Lymphocytes % (A) 33.7 %; MCH 30.6 pg (27.0-32.0); MCHC 33.2 g/dL (32.0-37.0); MCV 92.3 fL (80.0-97.0); Monocytes # (A) 0.52 10*3/uL (0.20-1.00); Monocytes % (A) 7.9 %; Neutrophils # (A) 3.34 10*3/uL (1.80-7.70); Neutrophils % (A) 50.9 %; Platelet Count 145 10*3/uL (140-440); RBC 4.05 10*6/uL (4.40-5.60); RDW 12.7 % (11.5-14.5); WBC 6.56 10*3/uL (4.50-10.00)
[2024-11-23 04:36] LABS: ALT 32 U/L (4-49); AST 27 U/L (17-59); African American GFR (CKD) 29 (>60 ml/min/1.73 sqM); Albumin 2.8 g/dL (3.5-5.0); Alkaline Phosphatase 93 U/L (38-126); Anion Gap 9 mmol/L; Blood Urea Nitrogen 50 mg/dL (9-20); Calcium 7.9 mg/dL (8.4-10.2); Carbon Dioxide 18 mmol/L (22-30); Chloride 108 mmol/L (98-107); Glucose 84 mg/dL (74-99); Non-African American GFR(CKD) 25 (>60 ml/min/1.73 sqM); Potassium 4.1 mmol/L (3.5-5.1); Sodium 135 mmol/L (137-145); Total Protein 5.1 g/dL (6.3-8.2)
[2024-11-23 07:59] VITALS: BP 131/70; PULSE 84; RESP 18; TEMP 97.7
[2024-11-23] MEDS: SODIUM BICARBONATE TAB 650 MG TAB PO SCH (09:41)
[2024-11-23 11:28] LABS: Glucose,Whole Blood 188 mg/dL (70-110)
--- NOTE | 2024-11-23 12:34 | P.PN ---
Subjective Patient is seen for follow-up for acute kidney injury. Maintained on IV fluids Renal function is slightly improved with creatinine down from 3.4 on admission to 2.5 today. Good urine output Diarrhea has improved Overall feeling better. 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 - Labs CBC & Chem 7: 11/23/24 03:23 11/23/24 03:23 Labs: Abnormal Lab Results - Last 24 Hours (Table) 11/23/24 11/23/24 11/23/24 Range/Units 03:23 03:23 11:28 RBC 4.05 L (4.40-5.60) 10*6/uL Hgb 12.4 L (13.0-17.0) g/dL Hct 37.4 L (39.6-50.0) % Eosinophils # 0.43 H (0.04-0.35) 10*3/uL Sodium 135 L (137-145) mmol/L Chloride 108 H (98-107) mmol/L Carbon Dioxide 18 L (22-30) mmol/L BUN 50 H (9-20) mg/dL Creatinine 2.56 H (0.66-1.25) mg/dL POC Glucose (mg/dL) 188 H (70-110) mg/dL Calcium 7.9 L (8.4-10.2) mg/dL Total Protein 5.1 L (6.3-8.2) g/dL Albumin 2.8 L (3.5-5.0) g/dL Assessment and Plan Assessment: 1. Acute kidney injury associated with volume depletion, improving with IV hy dration. UA shows 2+ protein and small blood. Ultrasound shows no evidence of obstructive uropathy. Nonobstructive bilateral nephrolithiasis noted on CT scan 2. Nausea vomiting and diarrhea from gastroenteritis, possibly viral, improved 3. Volume depletion maintained on IV fluids 4. 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 Hypertension with CKD stage III A 6. Nephrolithiasis with bilateral nonobstructive renal stones noted on CT scan. Patient has been evaluated by urology many years ago. He will need 24-hour urine for stone profile as outpatient. Plan: Add oral sodium bicarb Patient is stable for discharge from nephrology standpoint. Follow-up as outpatient in 1 week Continue to hold angiotensin receptor blockers Start SGLT2 inhibitors once volume status stabilizes Patient will need follow-up as outpatient Avoid nephrotoxic agents
--- NOTE | 2024-11-23 13:20 | P.DS ---
Providers Date of admission: 11/20/24 23:02 Expected date of discharge: 11/23/24 Attending physician: Karlo Traore Consults: 11/20/24 23:02 Consult Physician Routine Consulting Provider: Abraham Gonzalez Consult Reason/Comments: HUNG Do you want consulting provider notified?: Yes Primary care physician: Karlo Traore [facility] Course: Discharge diagnosis Acute kidney injury likely secondary from nausea vomiting and diarrhea Nausea vomiting and diarrhea from gastroenteritis possibly a viral Diabetes mellitus with hypoglycemia. Oral agents currently on hold History of chronic kidney disease stage III History of essential hypertension Hospital course Jose Manuel Leach is a 69-year-old male patient who presented with concerns of low blood sugar. Patient reports he has been sick over the past few days with nausea vomiting and diarrhea. Patient's is apparently also sick at home and he has been feeling quite weak. Patient has additional medical history of essential hypertension, type Beatties, hypothyroidism and nephrolithiasis. CT of abdomen and pelvis completed showing atrophy of the right kidney nonobstructing bilateral renal stones measuring up to 1 cm in the left upper pole fat-containing ventral abdominal wall hernia measuring at approximately 4.8 x 3.8 cm multilevel posterior fusion extending from L3-S1 diverticulosis without acute diverticulitis no small bowel obstruction no free air. Lab work completed showing white blood cell 6.15, hemoglobin 14.1, creatinine 2.82 bun 58 this is improved from admission. Influenza RSV and COVID-19 negative blood sugar has improved to 120. At this time patient will be admitted nephrology services consulted continue IV fluid and symptomatic management. Current vital signs temp 99, heart rate 100, respiratory rate 16, blood pressure 138/76 with pulse ox 95% on room air On 11/22/2024 patient was seen and examined on the medical floor he is alert and oriented x 3 in no apparent distress there is no fever or chills no headache or dizziness no chest pain no shortness of breath no cough no nausea or vomiting no abdominal pain no diarrhea and no urinary symptoms. Temperature is 98.3 pulse 103 respiration 16 blood pressure 131/87 pulse ox 7% on room air sodium 137 potassium 4.6 carbon dioxide 15 BUN 53 creatinine 2.59 time will continue with IV fluid and IV bicarb will follow in a.m. nephrology are also following On 11/23/2024 patient is alert and oriented x 3. Patient is eager to be DC'd home creatinine today 2.56. Did discuss case with nephrology patient cleared for discharge from nephrology standpoint patient to continue on sodium bicarb and hold ARB follow-up with PCP and nephrology services for further management. Patient denies chest pain or shortness of breath. Patient denies nausea vomiting or diarrhea. Patient denies any urinary burning or frequency Patient Condition at Discharge: Stable Plan - Discharge Summary Discharge Rx Participant: Yes New Discharge Prescriptions: New Sodium Bicarbonate Tab 650 mg PO BID 30 Days #60 tab Continue Ezetimibe [Zetia] 10 mg PO HS glipiZIDE 5 mg PO TID Levothyroxine Sodium [Synthroid] 175 mcg PO DAILY Rosuvastatin [Crestor] 20 mg PO HS Semaglutide [Rybelsus] 7 mg PO AC-BRKFST Discontinued Valsartan 320 mg PO DAILY Discharge Medication List Ezetimibe [Zetia] 10 mg PO HS 05/13/22 [History] glipiZIDE 5 mg PO TID 05/13/22 [History] Levothyroxine Sodium [Synthroid] 175 mcg PO DAILY 11/21/24 [History] Rosuvastatin [Crestor] 20 mg PO HS 11/21/24 [History] Semaglutide [Rybelsus] 7 mg PO AC-BRKFST 11/21/24 [History] Sodium Bicarbonate Tab 650 mg PO BID 30 Days #60 tab 11/23/24 [Rx] Follow up Appointment(s)/Referral(s): Karlo Traore MD [Primary Care Provider] - 1-2 days Activity/Diet/Wound Care/Special Instructions: activity as tolerated diet heart healthy Discharge Disposition: HOME SELF-CARE
== END 2024-11-23 13:46 | disposition home or self-care (01) | DRG 684 ==
LOC: EC 20:36 → 1SOBS 23:02
PROVIDERS: ADMIT Internal Medicine; ATTEND Internal Medicine
DX: N17.9 Acute kidney failure, unspecified (principal); A08.4 Viral intestinal infection, unspecified; E11.22 Type 2 diabetes mellitus with diabetic chronic kidney disease; N18.31 Chronic kidney disease, stage 3a; E03.9 Hypothyroidism, unspecified; I12.9 Hypertensive chronic kidney disease with stage 1 through stage 4 chronic kidney disease, or unspecified chronic kidney disease; J45.909 Unspecified asthma, uncomplicated; E11.649 Type 2 diabetes mellitus with hypoglycemia without coma; E11.65 Type 2 diabetes mellitus with hyperglycemia; E78.5 Hyperlipidemia, unspecified; E86.0 Dehydration; N20.0 Calculus of kidney; K43.9 Ventral hernia without obstruction or gangrene; K57.30 Diverticulosis of large intestine without perforation or abscess without bleeding; Z79.84 Long term (current) use of oral hypoglycemic drugs; Z79.890 Hormone replacement therapy; Z79.899 Other long term (current) drug therapy; Z87.891 Personal history of nicotine dependence; Z87.442 Personal history of urinary calculi
CPT/HCPCS: 36415; 74176; 76770; 80053; 81001; 83630; 83735; 83880; 84100; 84443; 84484; 85025; 87324; 87636; 96360; 96361; 99285